=== PATIENT | female | born 1970 | race Caucasian/White ===

== ENCOUNTER 2017-09-30 15:29 | Inpatient (IN) | payer MEDICAID ==
--- NOTE | 2017-09-30 15:45 | C.PDOC ---
History Of Present Illness 47 yr old female brought in via BLS s/p syncopal episode for approximately for 1 minute while at [facility] (was sitting down). Patient states prior to syncopizing, she felt like her left leg was twitching and she also had generalized weakness. She states her said she was unable to speak prior to episode, however she does not remember this. After syncope, patient has headache. Patient denies facial droop, slurred speech, visual changes, fever /chills, chest pain, SOB, nausea, vomiting, gait changes, sensory changes, extremity weakness. Patient has PMHx of pseudotumor cerebri, CHF, HTN, CAD with 2 stents, hyperlipidemia. Time Seen by Provider: 09/30/17 15:38 Chief Complaint (Nursing): Syncope History Per: Patient History/Exam Limitations: no limitations Onset/Duration Of Symptoms: Sudden Onset (SODDER) Past Medical History Reviewed: Historical Data, Nursing Documentation, Vital Signs Vital Signs: Last Vital Signs Temp 98.0 F 10/03/17 15:15 Pulse 69 10/03/17 16:21 Resp 20 10/03/17 15:15 BP 118/75 10/03/17 15:15 Pulse Ox 99 10/03/17 15:15 - Medical History PMH: Asthma, CAD ((+) 2 stents), CHF, HTN, Hypercholesterolemia, Chronic Kidney Disease Surgical History: Coronary Stent (x2) - [facility] Procedures INJECT/INFUSE NEC (07/28/14) Family History: States: No Known Family Hx - Social History Hx Alcohol Use: No Hx Substance Use: No - Immunization History Hx Tetanus Toxoid Vaccination: No Hx Influenza Vaccination: No Hx Pneumococcal Vaccination: Yes (2013) Review Of Systems Except As Marked, All Systems Reviewed And Found Negative. Constitutional: Negative for: Fever, Chills Eyes: Negative for: Vision Change Cardiovascular: Negative for: Chest Pain Respiratory: Negative for: Shortness of Breath Gastrointestinal: Negative for: Nausea, Vomiting Neurological: Positive for: Headache. 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) Head: Atraumatic, Normacephalic Eye(s): bilateral: Normal Inspection, PERRL (no nystagmus ), EOMI Oral Mucosa: Moist Neck: Normal, Normal ROM, No Midline Cervical Tenderness, No Paracervical Tenderness, No Step Off Deformity, Supple Cardiovascular: Rhythm Regular Respiratory: Normal Breath Sounds, No Rales, No Rhonchi, No Wheezing Gastrointestinal/Abdominal: Normal Exam, Bowel Sounds, Soft, No Tenderness, No Guarding, No Rebound Extremity: Normal ROM, No Swelling Neurological/Psych: Oriented x3, Normal Speech, Normal Cognition, Normal Cranial Nerves, No Cerebellar Signs, Normal Motor, Normal Sensation Gait: Steady ED Course And Treatment - Laboratory Results Result Diagrams: 10/03/17 09:18 10/03/17 09:18 ECG: Interpreted By Me, Viewed By Me (NSR 87 bpm, normal axis, no acute ST/T wave changes) ECG Interpretation: Normal O2 Sat by Pulse Oximetry: 98 (RA) Pulse Ox Interpretation: Normal - Radiology CXR: Interpreted by Me, Viewed By Me CXR Interpretation: Yes: No Acute Disease. No: Infiltrates - CT Scan/US CT - Head Other Rad Studies (CT/US): Read By Radiologist, Radiology Report Reviewed CT/US Interpretation: PROCEDURE: CT HEAD WITHOUT CONTRAST. HISTORY: syncope, pseudotumor cerebri. COMPARISON: None available. TECHNIQUE: Axial computed tomography images were obtained through the head/brain without intravenous contrast. Radiation dose: Total exam DLP = 878.41 mGy-cm. This CT exam was performed using one or more of the following dose reduction techniques: Automated exposure control, adjustment of the mA and/or kV according to patient size, and/or use of iterative reconstruction technique. FINDINGS: HEMORRHAGE: No intracranial hemorrhage. BRAIN: No mass effect or edema. No atrophy or chronic microvascular ischemic changes. VENTRICLES: The lateral ventricles are small in size. The possibility of pseudotumor cerebri is not totally excluded. CALVARIUM: Unremarkable. PARANASAL SINUSES: Unremarkable as visualized. No significant inflammatory changes. MASTOID AIR CELLS: Unremarkable as visualized. No inflammatory changes. OTHER FINDINGS: None. IMPRESSION: No evidence of acute intracranial hemorrhage territorial infarct mass effect or midline shift. The lateral ventricles are small in size. The possibility of pseudotumor cerebri is not excluded. Progress Note: PLAN: Blood work, EKG, UA, Upreg, CT head ordered and reviewed. Patient given PO tylenol. - Physician Consult Information Physician Contacted: Shreyas Castellanos Outcome Of Conversation: Discussed patient with Dr. Richelle Castellanos, agrees with admission for syncope, tia vs seizure. Dr. Vora consulted for neurology. NIHSS Stroke Scale - Date/Time Evaluation Performed Date Performed: 09/30/17 Time Performed: 15:34 When Was NIHSS Performed: Baseline - How Severe is the Stoke Level of Consciousness: 0=Alert LOC to Questions: 0=Both comments correct LOC to commands: 0=Obeys both correctly Best Gaze: 0=Normal Visual: 0=No visual loss Facial: 0=Normal Motor Arm - Left: 0=No drift Motor Arm - Right: 0=No drift Motor Leg - Left: 0=No drift Motor Leg - Right: 0=No drift Limb Ataxia: 0=Absent Sensory: 0=Normal Best Language: 0=No aphasia Dysarthia: 0=Normal articulation Extinction & Inattention (Neglect): 0=Normal, no object Score: 0 Severity Of Stroke: 0= No Stroke rTPA Inclusion/Exclusion - Refusal of Treatment Patient Refused Treatment: No - Inclusion Criteria for Altepase Patient is 18 years or Older: Yes The Clinical Diagnosis of Ischemic Stroke That is Causing a Potentially Disabling Neurological Deficit: No Time of Onset is Well Established to be Less Than 270 Minute Before Treatment Would Begin: Yes Risk/Benefit Discussed With Patient/Family Member Present: No Disposition - Disposition Disposition: HOSPITALIZED Disposition Time: 17:33 Condition: STABLE - Clinical Impression Clinical Impression: Syncope, TIA (transient ischemic attack), Seizure - Scribe Statement The provider has reviewed the documentation as recorded by the Kaylenibe [email or web address] Soni Provider Attestation: All medical record entries made by the Kaylenibadrian were at my direction and personally dictated by me. I have reviewed the chart and agree that the record accurately reflects my personal performance of the history, physical exam, medical decision making, and the department course for this patient. I have also personally directed, reviewed, and agree with the discharge instructions and disposition. Decision To Admit - Pt Status Changed To: Hospital Disposition Of: Inpatient - Admit Certification Admit to Inpatient:: After my assessment, the patient will require hospitalization for at least two midnights. This is because of the severity of symptoms shown, intensity of services needed, and/or the medical risk in this patient being treated as an outpatient. - InPatient: Physician Admission Certification: I certify that this patient requires 2 or more midnights of care for the following reason:: see notes - . Bed Request Type: Telemetry Admitting Physician: Shreyas Castellanos Patient Diagnosis: Syncope, TIA (transient ischemic attack), Seizure
[2017-09-30 16:10] LABS: BASO % 0.5 % (0.0-2.0); EOS # 0.1 K/uL (0.0-0.7); EOS % 0.8 % (0.0-4.0); HEMATOCRIT 31.8 % (34.0-47.0); LYMPH # 1.1 K/uL (1.0-4.3); LYMPH % 13.1 % (20.0-40.0); MEAN CELL VOLUME 90.6 fL (81.0-99.0); MEAN CORPUSCULAR HEMOGLOBIN 29.4 pg (27.0-31.0); MEAN CORPUSCULAR HGB CONC 32.4 g/dL (33.0-37.0); MEAN PLATELET VOLUME 10.1 fL (7.2-11.7); MONO # 0.6 K/uL (0.0-0.8); MONO % 7.1 % (0.0-10.0); RED CELL DISTRIBUTION WIDTH 14.4 % (11.5-14.5); WHITE BLOOD COUNT 8.6 K/uL (4.8-10.8)
[2017-09-30 16:12] LABS: BILIRUBIN,TOTAL 1.2 mg/dL (0.2-1.3); CALCIUM 7.3 mg/dl (8.6-10.4); GFR AFRICAN-AMERICAN > 60; GLUCOSE,RANDOM 108 mg/dL (65-105); TOTAL PROTEIN 6.2 g/dL (6.3-8.3)
[2017-09-30 16:15] LABS: ALB/GLOB RATIO 1.7 (1.0-2.1); ALKALINE PHOSPHATASE 51 U/L (38-126); ALT/SGPT 33 U/L (9-52); AST/SGOT 27 U/L (14-36); BLOOD UREA NITROGEN 15 mg/dL (7-17); CARBON DIOXIDE 19 mmol/L (22-30); CHLORIDE 109 mmol/L (98-107); POTASSIUM 3.9 mmol/L (3.6-5.2); SODIUM 140 mmol/L (132-148)
--- NOTE | 2017-09-30 16:22 | CT ---
PROCEDURE: CT HEAD WITHOUT CONTRAST. HISTORY: syncope, pseudotumor cerebri COMPARISON: None available. TECHNIQUE: Axial computed tomography images were obtained through the head/brain without intravenous contrast. Radiation dose: Total exam DLP = 878.41 mGy-cm. This CT exam was performed using one or more of the following dose reduction techniques: Automated exposure control, adjustment of the mA and/or kV according to patient size, and/or use of iterative reconstruction technique. FINDINGS: HEMORRHAGE: No intracranial hemorrhage. BRAIN: No mass effect or edema. No atrophy or chronic microvascular ischemic changes. VENTRICLES: The lateral ventricles are small in size. The possibility of pseudotumor cerebri is not totally excluded. CALVARIUM: Unremarkable. PARANASAL SINUSES: Unremarkable as visualized. No significant inflammatory changes. MASTOID AIR CELLS: Unremarkable as visualized. No inflammatory changes. OTHER FINDINGS: None. IMPRESSION: No evidence of acute intracranial hemorrhage territorial infarct mass effect or midline shift. The lateral ventricles are small in size. The possibility of pseudotumor cerebri is not excluded.
[2017-09-30 17:40] LABS: RBC URINE 1 /hpf (0-3); URINE BACTERIA RARE (<OCC); URINE BILIRUBIN NEGATIVE (NEGATIVE); URINE BLOOD NEGATIVE (NEGATIVE); URINE COLOR Yellow (YELLOW); URINE GLUCOSE (UA) NORMAL (Normal); URINE KETONE NEGATIVE (NEGATIVE); URINE LEUKOCYTE ESTERASE NEG Leu/uL (Negative); URINE PROTEIN NEGATIVE (NEGATIVE); URINE UROBILINOGEN NORMAL mg/dL (0.2-1.0); WBC URINE 5 /hpf (0-5)
[2017-10-01 07:55] LABS: FREE T4 0.87 ng/dL (0.78-2.19)
[2017-10-01 08:09] LABS: THYROID STIMULATING HORMONE 1.51 mIU/L (0.46-4.68)
--- NOTE | 2017-10-01 09:13 | RAD ---
PROCEDURE: CHEST RADIOGRAPH, 1 VIEW HISTORY: syncope COMPARISON: None available. FINDINGS: LUNGS: Clear. PLEURA: No pneumothorax or pleural fluid seen. CARDIOVASCULAR: Mild cardiomegaly is noted there is no pulmonary vascular derangement appreciated. OSSEOUS STRUCTURES: No significant abnormalities. VISUALIZED UPPER ABDOMEN: Normal. OTHER FINDINGS: None. IMPRESSION: No acute cardiopulmonary disease appreciated.
[2017-10-01] MEDS: Metoprolol Succinate 50 mg XL Tab PO SCH (09:22)
--- NOTE | 2017-10-01 12:03 | CP.PCM.CON ---
<Rao Locke - Last Filed: 10/04/17 10:18> History of Present Illness - History of Present Illness History of Present Illness: Cardiology Consult note for Dr. 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 Patient states for the past two days she was feeling tired and weak. On 09/30 patient states she cooked for Thanksgiving all day and finally had the chance to sit and talk with family when suddenly she felt her left leg and arm twitching. She told her she was feeling funny but by time she was able to fully explain what she was feeling she had passed out. At this point patient's brought her to the sofa. Patient states this is not the first time this episode has occurred, hence why her usually knows what to do in these situations. She states that normally however her syncopal episodes are accompanied by a pain in her chest and her arm not so much weakness which was different in this episode. As per patient, according to her , there was no trauma to the head. Patient did complain of neck pain s/p syncopal episode however states this was most likely due to the way her carried her to the couch. Patient also denies any dizziness, or sensation of room spinning around her, nausea, vomiting, palpitations, vision changes prior to episode as well as denies urinary/bowel incontinence. Patient states according to her she experienced loss of consciousness for about one minute. What prompted the to call the ambulance however is that unlike patient's other syncopal episodes, this time patient was unable to verbally communicate right after for about a minute. Patient state she also did not regain strength in her left upper and lower extremities until approximately 20 minutes after syncopizing. Due to history of renal transplants patient monitors Cr. Patient's baseline Cr is 0.7-0.8, creatinine is currently 1.1; patient would like to keep this value monitored. PMD: Dr. Renita Zamarripa [phone], Transplant physician: Dr. Sade Bhatia , Continuous Drier Helper: Dr. Marcella Ernst [phone], Service Cleaner: Dr. Drake Marlow [phone] Surgical History:Hip surgery, b/l glaucoma repair, ureter reconstruction 07/2017 , cholecystectomy, First renal transplant at 13 years old which lasted 6 months , second renal transplant in 1993 which lasted 4.5 years, third renal transplant in 2005 which lasted a few hours, and fourth renal transplant in 2007 which has lasted patient since. Heart Cath 2011- MID LAD and Prox LAD- 2 stents (98% and 99% occluded). Family History: Mother: DM II, Hypertension, CAD s/p stends, Father: [place], CVA, Brother: Stroke, Sister: Atrial fibrillation, TIA Social History: Denies tobacco use, alcohol consumption, illicit drug use Allergies: Vancomycin Medications: please refer to MAR Review of Systems - Review of Systems Systems not reviewed;Unavailable: Acuity of Condition - Constitutional Constitutional: Fatigue, Malaise, Weakness. absent: Chills, Fever, Headache - EENT Eyes: absent: Blurred Vision, Change in Vision, Floaters Ears: Tinnitus (patient states has been present since pseudotumor cerebri) Nose/Mouth/Throat: absent: Epistaxis, Nasal Congestion, Nasal Discharge - Cardiovascular Cardiovascular: Chest Pain, Chest Pain at Rest. absent: Dyspnea, Palpitations - Respiratory Respiratory: absent: Cough, Dyspnea, Wheezing - Gastrointestinal Gastrointestinal: absent: Diarrhea, Nausea, Vomiting - Musculoskeletal Musculoskeletal: absent: Arthralgias, Atrophy, Back Pain - Neurological Neurological: Weakness. absent: Dizziness - Psychiatric Psychiatric: absent: Anhedonia, Confusion, Irritability Past Patient History - Past Medical History & Family History Past Medical History?: Yes - Past Social History Smoking Status: Never Smoked - CARDIAC Hx Congestive Heart Failure: Yes Hx Hypercholesterolemia: Yes Hx Hypertension: Yes - PULMONARY Hx Asthma: Yes - NEUROLOGICAL Hx Neurological Disorder: No - HEENT Hx HEENT Problems: Yes Hx Blind: Yes (partial) Hx Glaucoma: Yes Other/Comment: wears glasses,cerebral pseudo tumor - RENAL Hx Chronic Kidney Disease: Yes - ENDOCRINE/METABOLIC Hx Endocrine Disorders: Yes Other/Comment: parathyroidectomy - HEMATOLOGICAL/ONCOLOGICAL Hx Blood Disorders: No - INTEGUMENTARY Hx Dermatological Problems: No - MUSCULOSKELETAL/RHEUMATOLOGICAL Hx Musculoskeletal Disorders: No Hx Falls: No - GASTROINTESTINAL Hx Gastrointestinal Disorders: No - GENITOURINARY/GYNECOLOGICAL Hx Genitourinary Disorders: Yes Hx Urinary Tract Infection: Yes (chronic) - PSYCHIATRIC Hx Substance Use: No - SURGICAL HISTORY Hx Coronary Stent: Yes (x2) - ANESTHESIA Hx Anesthesia: Yes Hx Anesthesia Reactions: No Hx Malignant Hyperthermia: No Has any member of the family had a problem w/ anesthesia?: No Meds Allergies/Adverse Reactions: Allergies Allergy/AdvReac Type Severity Reaction Status Date / Time vancomycin Allergy Intermediate RASH Verified 09/30/17 15:42 - Medications Medications: Current Medications Acetazolamide (Diamox 250 Mg Tab) 250 mg PO BID [facility] Last Admin: 10/01/17 09:21 Dose: 250 mg Aspirin (Aspirin) 325 mg PO DAILY [facility] Last Admin: 10/01/17 09:21 Dose: 325 mg Famotidine (Pepcid) 20 mg PO DAILY [facility] Last Admin: 10/01/17 09:22 Dose: 20 mg Isosorbide Mononitrate (Imdur Er) 30 mg PO DAILY [facility] Last Admin: 10/01/17 09:22 Dose: 30 mg Lorazepam (Ativan) 0.5 mg IVP ONCE PRN PRN Reason: for sedation prior to MRI Metoprolol Succinate (Toprol Xl) 50 mg PO DAILY [facility] Last Admin: 10/01/17 09:22 Dose: 50 mg Mycophenolate Mofetil (Cellcept) 500 mg PO BID [facility] Last Admin: 10/01/17 09:22 Dose: 500 mg Pneumococcal Polyvalent Vaccine (Pneumovax 23 Vaccine) 0.5 ml IM .ONCE ONE Stop: 10/03/17 10:01 Rosuvastatin Calcium (Crestor) 10 mg PO [facility] Last Admin: 09/30/17 23:56 Dose: 10 mg Tacrolimus (Prograf Cap) 1 mg PO DAILY [facility] Last Admin: 10/01/17 09:21 Dose: 1 mg Tacrolimus (Prograf Cap) 0.5 mg PO [facility] Last Admin: 09/30/17 23:57 Dose: 0.5 mg Tiotropium [place] (Spiriva) 18 mcg INH RQ24 [facility] Physical Exam - Constitutional Appears: No Acute Distress - Head Exam Head Exam: ATRAUMATIC, NORMAL INSPECTION, NORMOCEPHALIC - Eye Exam Eye Exam: EOMI, Normal appearance - ENT Exam ENT Exam: Mucous Membranes Moist, Normal Exam - Respiratory Exam Respiratory Exam: Clear to Auscultation Bilateral, NORMAL BREATHING PATTERN - Cardiovascular Exam Cardiovascular Exam: REGULAR RHYTHM, +S1, +S2. absent: Irregular Rhythm, Systolic Murmur - GI/Abdominal Exam GI & Abdominal Exam: Normal Bowel Sounds, Soft - Back Exam Back exam: NORMAL INSPECTION - Neurological Exam Neurological exam: Alert, CN II-XII Intact, Oriented x3 Additional comments: no focal neurological deficits - Skin Skin Exam: Intact, Warm Results - Vital Signs Recent Vital Signs: Last Vital Signs Temp 98.1 F 10/01/17 09:20 Pulse 73 10/01/17 09:20 Resp 20 10/01/17 09:20 BP 112/66 10/01/17 09:20 Pulse Ox 99 10/01/17 09:20 - Labs Result Diagrams: 10/03/17 09:18 10/04/17 06:10 Labs: Laboratory Results - last 24 hr 09/30/17 09/30/17 09/30/17 15:39 15:49 15:49 WBC 8.6 RBC 3.51 L Hgb 10.3 L Hct 31.8 L MCV 90.6 MCH 29.4 MCHC 32.4 L RDW 14.4 Plt Count 186 MPV 10.1 Neut % (Auto) 78.5 H Lymph % (Auto) 13.1 L [place] % (Auto) 7.1 Eos % (Auto) 0.8 Baso % (Auto) 0.5 Neut # 6.8 Lymph # 1.1 [place] # 0.6 Eos # 0.1 Baso # 0.0 Sodium 140 Potassium 3.9 Chloride 109 H Carbon Dioxide 19 L Anion Gap 16 BUN 15 Creatinine 1.1 Est GFR ( Amer) > 60 Est GFR (Non-Af Amer) 54 POC Glucose (mg/dL) 125 H Random Glucose 108 H Hemoglobin A1c Calcium 7.3 L Total Bilirubin 1.2 AST 27 ALT 33 Alkaline Phosphatase 51 Total Creatine Kinase 44 CK-MB (Mass) 0.42 Troponin I < 0.0120 NT-Pro-B Natriuret Pep Total Protein 6.2 L Albumin 3.8 Globulin 2.3 Albumin/Globulin Ratio 1.7 Triglycerides Cholesterol LDL Cholesterol Direct HDL Cholesterol Vitamin B12 Free T4 TSH 3rd Generation Prolactin Urine Color Urine Clarity Urine pH Ur Specific [place] Urine Protein Urine Glucose (UA) Urine Ketones Urine Blood Urine Nitrate Urine Bilirubin Urine Urobilinogen Ur Leukocyte Esterase Urine WBC (Auto) Urine RBC (Auto) Ur Squamous Epith Cells Urine Bacteria Urine HCG, Qual 09/30/17 10/01/17 10/01/17 17:20 06:25 06:25 WBC RBC Hgb Hct MCV MCH MCHC RDW Plt Count MPV Neut % (Auto) Lymph % (Auto) [place] % (Auto) Eos % (Auto) Baso % (Auto) Neut # Lymph # [place] # Eos # Baso # Sodium Potassium Chloride Carbon Dioxide Anion Gap BUN Creatinine Est GFR ( Amer) Est GFR (Non-Af Amer) POC Glucose (mg/dL) Random Glucose Hemoglobin A1c 5.2 Calcium Total Bilirubin AST ALT Alkaline Phosphatase Total Creatine Kinase CK-MB (Mass) Troponin I NT-Pro-B Natriuret Pep Total Protein Albumin Globulin Albumin/Globulin Ratio Triglycerides Cholesterol LDL Cholesterol Direct HDL Cholesterol Vitamin B12 Free T4 0.87 TSH 3rd Generation 1.51 Prolactin Urine Color Yellow Urine Clarity Hazy Urine pH 6.0 Ur Specific [place] 1.008 Urine Protein Negative Urine Glucose (UA) Normal Urine Ketones Negative Urine Blood Negative Urine Nitrate Negative Urine Bilirubin Negative Urine Urobilinogen Normal Ur Leukocyte Esterase Neg Urine WBC (Auto) 5 Urine RBC (Auto) 1 Ur Squamous Epith Cells 16 H Urine Bacteria Rare Urine HCG, Qual Negative 10/01/17 06:25 WBC RBC Hgb Hct MCV MCH MCHC RDW Plt Count MPV Neut % (Auto) Lymph % (Auto) [place] % (Auto) Eos % (Auto) Baso % (Auto) Neut # Lymph # [place] # Eos # Baso # Sodium Potassium Chloride Carbon Dioxide Anion Gap BUN Creatinine Est GFR ( Amer) Est GFR (Non-Af Amer) POC Glucose (mg/dL) Random Glucose Hemoglobin A1c Calcium Total Bilirubin AST ALT Alkaline Phosphatase Total Creatine Kinase CK-MB (Mass) Troponin I NT-Pro-B Natriuret Pep 174 Total Protein Albumin Globulin Albumin/Globulin Ratio Triglycerides 96 Cholesterol 82 LDL Cholesterol Direct 37 HDL Cholesterol 36 Vitamin B12 324 Free T4 TSH 3rd Generation Prolactin 40.5 H Urine Color Urine Clarity Urine pH Ur Specific [place] Urine Protein Urine Glucose (UA) Urine Ketones Urine Blood Urine Nitrate Urine Bilirubin Urine Urobilinogen Ur Leukocyte Esterase Urine WBC (Auto) Urine RBC (Auto) Ur Squamous Epith Cells Urine Bacteria Urine HCG, Qual Assessment & Plan - Assessment and Plan (Free Text) Assessment: Patient is a 47 year old female with a past medical history of Kidney disease s/ p 4 renal transplants, pseudotumor cerebri, PCP pneumonia, 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 Plan: 1. Syncope r/o cardiac mechanical etiology vs orthostatics hypotension vs neurologic etiology Work up in progress: - Carotid dopplers ordered; results pending - Echo ordered; results pending - Due to history of 2 stents in 2011 (Prox LAD and Mid LAD) s/p Cath in which 98 % and 99% occlusions were found, placed pt on schedule for Cath 10/04; NPO after midnight on 10/03 - BNP ordered; results pending - Lipid panel ordered; results pending - HgA1C score ordered; results pending 2. Asthma - Patient states condition is severe - Continue with meds already on board - Also restarted patient on montelukast and advair which patient takes daily <Bautista Damon - Last Filed: 10/05/17 09:31> Meds - Medications Medications: Current Medications Acetazolamide (Diamox 250 Mg Tab) 250 mg PO BID [facility] Last Admin: 10/04/17 17:50 Dose: 250 mg Aspirin (Ecotrin) 81 mg PO DAILY [facility] Last Admin: 10/04/17 09:57 Dose: 81 mg Clopidogrel Bisulfate (Plavix) 75 mg PO DAILY [facility] Last Admin: 10/04/17 09:57 Dose: 75 mg Famotidine (Pepcid) 20 mg PO DAILY [facility] Last Admin: 10/04/17 09:57 Dose: 20 mg Sodium Chloride (Sodium Chloride 0.9%) 1,000 mls @ 75 mls/hr IV .[id number] [facility] Last Admin: 10/05/17 06:01 Dose: 75 mls/hr Isosorbide Mononitrate (Imdur Er) 30 mg PO DAILY [facility] Last Admin: 10/04/17 10:03 Dose: 30 mg Lorazepam (Ativan) 0.5 mg IVP ONCE PRN PRN Reason: for sedation prior to MRI Metoprolol Succinate (Toprol Xl) 50 mg PO DAILY [facility] Last Admin: 10/04/17 09:57 Dose: 50 mg Montelukast Sodium (Singulair) 10 mg PO HS [facility] Last Admin: 10/04/17 20:59 Dose: 10 mg Mycophenolate Mofetil (Cellcept) 500 mg PO BID [facility] Last Admin: 10/04/17 20:59 Dose: 500 mg Prednisone (Prednisone Tab) 5 mg PO DAILY [facility] Last Admin: 10/04/17 09:58 Dose: 5 mg Rosuvastatin Calcium (Crestor) 10 mg PO HS [facility] Last Admin: 10/04/17 20:59 Dose: 10 mg Tacrolimus (Prograf Cap) 1 mg PO DAILY [facility] Last Admin: 10/04/17 10:15 Dose: 1 mg Tacrolimus (Prograf Cap) 0.5 mg PO HS [facility] Last Admin: 10/04/17 20:59 Dose: 0.5 mg Tiotropium [place] (Spiriva) 18 mcg INH RQ24 [facility] Last Admin: 10/05/17 07:45 Dose: 18 mcg Results - Vital Signs Recent Vital Signs: Last Vital Signs Temp 98.1 F 10/05/17 08:05 Pulse 70 10/05/17 08:06 Resp 20 10/05/17 08:05 BP 133/79 10/05/17 08:05 Pulse Ox 95 10/05/17 08:05 - Labs Result Diagrams: 10/03/17 09:18 10/05/17 07:08 Labs: Laboratory Results - last 24 hr 10/04/17 10/05/17 18:54 07:08 Sodium 142 Potassium 3.7 Chloride 113 H Carbon Dioxide 18 L Anion Gap 14 BUN 15 Creatinine 1.5 H Est GFR ( Amer) 45 Est GFR (Non-Af Amer) 38 Random Glucose 74 Calcium 6.6 L Phosphorus 4.6 H Magnesium 1.2 L Total Bilirubin 0.5 AST 18 ALT 22 Alkaline Phosphatase 69 Total Creatine Kinase 24 L Total Protein 5.4 L Albumin 3.2 L Globulin 2.2 Albumin/Globulin Ratio 1.5 Urine Color Straw Urine Clarity Clear Urine pH 6.0 Ur Specific [place] 1.006 Urine Protein Negative Urine Glucose (UA) Normal Urine Ketones Negative Urine Blood Negative Urine Nitrate Negative Urine Bilirubin Negative Urine Urobilinogen Normal Ur Leukocyte Esterase Neg Urine WBC (Auto) 2 Urine RBC (Auto) 1 Ur Squamous Epith Cells 8 H Ur Transition Epith Cell < 1 Urine Bacteria Rare Assessment & Plan (1) Syncope Status: Acute (2) Acute dyspnea Status: Acute Priority: High (3) Chest pain Status: Acute (4) CAD S/P percutaneous coronary angioplasty Status: Chronic Priority: Medium (5) Essential (primary) hypertension Status: Chronic Priority: High Attending/Attestation - Attestation I have personally seen and examined this patient.: Yes I have fully participated in the care of the patient.: Yes I have reviewed all pertinent clinical information: Yes Notes (Text): 10/05/17 09:30 syncope chest pain - atypical hx of CAD with stenting of proximal and mid LAD will need further ischemic w/u
--- NOTE | 2017-10-01 12:42 | CP.PCM.CON ---
History of Present Illness - History of Present Illness History of Present Illness: CONSULT DICTATED EPISODE OF LEFT SIDE NUMBNESS FOLLOWING LOC SEIZURES Vs TIA WORK UP ON PROGRESS RX PLAVIX Past Patient History - Past Medical History & Family History Past Medical History?: Yes - Past Social History Smoking Status: Never Smoked - CARDIAC Hx Congestive Heart Failure: Yes Hx Hypercholesterolemia: Yes Hx Hypertension: Yes - PULMONARY Hx Asthma: Yes - NEUROLOGICAL Hx Neurological Disorder: No - HEENT Hx HEENT Problems: Yes Hx Blind: Yes (partial) Hx Glaucoma: Yes Other/Comment: wears glasses,cerebral pseudo tumor - RENAL Hx Chronic Kidney Disease: Yes - ENDOCRINE/METABOLIC Hx Endocrine Disorders: Yes Other/Comment: parathyroidectomy - HEMATOLOGICAL/ONCOLOGICAL Hx Blood Disorders: No - INTEGUMENTARY Hx Dermatological Problems: No - MUSCULOSKELETAL/RHEUMATOLOGICAL Hx Musculoskeletal Disorders: No Hx Falls: No - GASTROINTESTINAL Hx Gastrointestinal Disorders: No - GENITOURINARY/GYNECOLOGICAL Hx Genitourinary Disorders: Yes Hx Urinary Tract Infection: Yes (chronic) - PSYCHIATRIC Hx Substance Use: No - SURGICAL HISTORY Hx Coronary Stent: Yes (x2) - ANESTHESIA Hx Anesthesia: Yes Hx Anesthesia Reactions: No Hx Malignant Hyperthermia: No Has any member of the family had a problem w/ anesthesia?: No Meds Allergies/Adverse Reactions: Allergies Allergy/AdvReac Type Severity Reaction Status Date / Time vancomycin Allergy Intermediate RASH Verified 09/30/17 15:42 - Medications Medications: Current Medications Acetazolamide (Diamox 250 Mg Tab) 250 mg PO BID [facility] Last Admin: 10/01/17 09:21 Dose: 250 mg Aspirin (Aspirin) 325 mg PO DAILY [facility] Last Admin: 10/01/17 09:21 Dose: 325 mg Famotidine (Pepcid) 20 mg PO DAILY [facility] Last Admin: 10/01/17 09:22 Dose: 20 mg Isosorbide Mononitrate (Imdur Er) 30 mg PO DAILY [facility] Last Admin: 10/01/17 09:22 Dose: 30 mg Lorazepam (Ativan) 0.5 mg IVP ONCE PRN PRN Reason: for sedation prior to MRI Metoprolol Succinate (Toprol Xl) 50 mg PO DAILY [facility] Last Admin: 10/01/17 09:22 Dose: 50 mg Mycophenolate Mofetil (Cellcept) 500 mg PO BID [facility] Last Admin: 10/01/17 09:22 Dose: 500 mg Pneumococcal Polyvalent Vaccine (Pneumovax 23 Vaccine) 0.5 ml IM .ONCE ONE Stop: 10/03/17 10:01 Rosuvastatin Calcium (Crestor) 10 mg PO HS [facility] Last Admin: 09/30/17 23:56 Dose: 10 mg Tacrolimus (Prograf Cap) 1 mg PO DAILY [facility] Last Admin: 10/01/17 09:21 Dose: 1 mg Tacrolimus (Prograf Cap) 0.5 mg PO HS [facility] Last Admin: 09/30/17 23:57 Dose: 0.5 mg Tiotropium [place] (Spiriva) 18 mcg INH RQ24 [facility] Results - Vital Signs Recent Vital Signs: Last Vital Signs Temp 98.1 F 10/01/17 09:20 Pulse 73 10/01/17 09:20 Resp 20 10/01/17 09:20 BP 112/66 10/01/17 09:20 Pulse Ox 99 10/01/17 09:20 - Labs Result Diagrams: 09/30/17 15:49 09/30/17 15:49 Labs: Laboratory Results - last 24 hr 09/30/17 09/30/17 09/30/17 15:39 15:49 15:49 WBC 8.6 RBC 3.51 L Hgb 10.3 L Hct 31.8 L MCV 90.6 MCH 29.4 MCHC 32.4 L RDW 14.4 Plt Count 186 MPV 10.1 Neut % (Auto) 78.5 H Lymph % (Auto) 13.1 L Gilchrist % (Auto) 7.1 Eos % (Auto) 0.8 Baso % (Auto) 0.5 Neut # 6.8 Lymph # 1.1 Gilchrist # 0.6 Eos # 0.1 Baso # 0.0 Sodium 140 Potassium 3.9 Chloride 109 H Carbon Dioxide 19 L Anion Gap 16 BUN 15 Creatinine 1.1 Est GFR ( Amer) > 60 Est GFR (Non-Af Amer) 54 POC Glucose (mg/dL) 125 H Random Glucose 108 H Hemoglobin A1c Calcium 7.3 L Total Bilirubin 1.2 AST 27 ALT 33 Alkaline Phosphatase 51 Total Creatine Kinase 44 CK-MB (Mass) 0.42 Troponin I < 0.0120 NT-Pro-B Natriuret Pep Total Protein 6.2 L Albumin 3.8 Globulin 2.3 Albumin/Globulin Ratio 1.7 Triglycerides Cholesterol LDL Cholesterol Direct HDL Cholesterol Vitamin B12 Free T4 TSH 3rd Generation Prolactin Urine Color Urine Clarity Urine pH Ur Specific [place] Urine Protein Urine Glucose (UA) Urine Ketones Urine Blood Urine Nitrate Urine Bilirubin Urine Urobilinogen Ur Leukocyte Esterase Urine WBC (Auto) Urine RBC (Auto) Ur Squamous Epith Cells Urine Bacteria Urine HCG, Qual 09/30/17 10/01/17 10/01/17 17:20 06:25 06:25 WBC RBC Hgb Hct MCV MCH MCHC RDW Plt Count MPV Neut % (Auto) Lymph % (Auto) Gilchrist % (Auto) Eos % (Auto) Baso % (Auto) Neut # Lymph # Gilchrist # Eos # Baso # Sodium Potassium Chloride Carbon Dioxide Anion Gap BUN Creatinine Est GFR ( Amer) Est GFR (Non-Af Amer) POC Glucose (mg/dL) Random Glucose Hemoglobin A1c 5.2 Calcium Total Bilirubin AST ALT Alkaline Phosphatase Total Creatine Kinase CK-MB (Mass) Troponin I NT-Pro-B Natriuret Pep Total Protein Albumin Globulin Albumin/Globulin Ratio Triglycerides Cholesterol LDL Cholesterol Direct HDL Cholesterol Vitamin B12 Free T4 0.87 TSH 3rd Generation 1.51 Prolactin Urine Color Yellow Urine Clarity Hazy Urine pH 6.0 Ur Specific [place] 1.008 Urine Protein Negative Urine Glucose (UA) Normal Urine Ketones Negative Urine Blood Negative Urine Nitrate Negative Urine Bilirubin Negative Urine Urobilinogen Normal Ur Leukocyte Esterase Neg Urine WBC (Auto) 5 Urine RBC (Auto) 1 Ur Squamous Epith Cells 16 H Urine Bacteria Rare Urine HCG, Qual Negative 10/01/17 06:25 WBC RBC Hgb Hct MCV MCH MCHC RDW Plt Count MPV Neut % (Auto) Lymph % (Auto) Gilchrist % (Auto) Eos % (Auto) Baso % (Auto) Neut # Lymph # Gilchrist # Eos # Baso # Sodium Potassium Chloride Carbon Dioxide Anion Gap BUN Creatinine Est GFR ( Amer) Est GFR (Non-Af Amer) POC Glucose (mg/dL) Random Glucose Hemoglobin A1c Calcium Total Bilirubin AST ALT Alkaline Phosphatase Total Creatine Kinase CK-MB (Mass) Troponin I NT-Pro-B Natriuret Pep 174 Total Protein Albumin Globulin Albumin/Globulin Ratio Triglycerides 96 Cholesterol 82 LDL Cholesterol Direct 37 HDL Cholesterol 36 Vitamin B12 324 Free T4 TSH 3rd Generation Prolactin 40.5 H Urine Color Urine Clarity Urine pH Ur Specific [place] Urine Protein Urine Glucose (UA) Urine Ketones Urine Blood Urine Nitrate Urine Bilirubin Urine Urobilinogen Ur Leukocyte Esterase Urine WBC (Auto) Urine RBC (Auto) Ur Squamous Epith Cells Urine Bacteria Urine HCG, Qual
--- NOTE | 2017-10-01 13:21 | VASCLAB ---
PROCEDURE: HISTORY: assess stenosis COMPARISON: None available. TECHNIQUE: Grayscale and duplex Doppler evaluation of the cervical carotid and vertebral arteries were performed. The common carotid, carotid bifurcations and cervical Internal Carotid Artery (ICA) and proximal External Carotid Artery (ECA) were evaluated. The vertebral arteries were evaluated for gross patency and flow direction. Report prepared by Fernando Glasgow, BS, RVT FINDINGS: RIGHT CAROTID ARTERIES: 1. Common Carotid Artery: No significant focal plaque formation of the right common carotid artery. Maximum Peak Systolic velocity: 74 cm/sec: End-diastolic velocity 20 cm/sec. 2. Carotid Bifurcation: No significant focal plaque formation. Maximum Peak Systolic velocity: 64 cm/sec: End-diastolic velocity 22 cm/sec. 3. Internal Carotid Artery: Plaque description: Not applicable 3.1. Proximal Segment: Peak systolic velocity 85 cm/sec: End-diastolic velocity 36 cm/sec - % stenosis 0-15% 3.2. Middle Segment: Peak systolic velocity 103 cm/sec: End-diastolic velocity 38 cm/sec - % stenosis 0-15% 3.3. Distal Segment: Peak systolic velocity 80 cm/sec: End-diastolic velocity 36 cm/sec - % stenosis 0-15% 4. External Carotid Artery: No significant focal plaque formation. Peak systolic velocity 72 cm/sec 5. ICA/CCA Ratio: 1.6 LEFT CAROTID ARTERIES: 1. Common Carotid Artery: No significant focal plaque formation of the left common carotid artery. Maximum Peak Systolic velocity: 88 cm/sec: End-diastolic velocity 25 cm/sec. 2. Carotid Bifurcation: No significant focal plaque formation. Maximum Peak Systolic velocity: 70 cm/sec: End-diastolic velocity 22 cm/sec. 3. Internal Carotid Artery: Plaque description: Not applicable 3.1. Proximal Segment: Peak systolic velocity 83 cm/sec: End-diastolic velocity 38 cm/sec - % stenosis 0-15% 3.2. Middle Segment: Peak systolic velocity 99 cm/sec: End-diastolic velocity 39 cm/sec - % stenosis 0-15% 3.3. Distal Segment: Peak systolic velocity 101 cm/sec: End-diastolic velocity 38 cm/sec - % stenosis 0-15% 4. External Carotid Artery: No significant focal plaque formation. Peak systolic velocity 77 cm/sec 5. ICA/CCA Ratio: 1.6 VERTEBRAL ARTERIES: 1. Right Vertebral Artery: The right vertebral artery flow direction is antegrade. 2. Left Vertebral Artery: The left vertebral artery flow direction is antegrade. OTHER FINDINGS: 1. Right Brachial Blood pressure: 110 mmHg. 2. Left Brachial Blood pressure: 108 mmHg. IMPRESSION: RIGHT: Duplex scan does not suggest hemodynamically significant stenosis of the right extracranial carotid arteries. LEFT: Duplex scan does not suggest hemodynamically significant stenosis of the left extracranial carotid arteries.
[2017-10-01] MEDS: Tiotropium 18 mcg Cap For Inhalation INH SCH (14:53)
[2017-10-01] MEDS ORDERED: Gadodiamide 287 MG/ML VIAL (15ML) IV ONE (15:10)
--- NOTE | 2017-10-01 16:45 | MRI ---
PROCEDURE: MRI brain dated 10/01/2017 HISTORY: Stroke versus mass COMPARISON: None. TECHNIQUE: Multiplanar, multisequence MR images of the brain were obtained with and without intravenous contrast enhancement. Approximately 11 cc of Omniscan injected for this procedure FINDINGS: HEMORRHAGE: No acute parenchymal, subarachnoid or extra-axial hemorrhage. No evidence of hemosiderin deposition identified on gradient echo weighted sequence. DWI: No evidence of an acute or early subacute infarction seen on diffusion imaging. . BRAIN PARENCHYMA: There are no focal areas of abnormal signal or contrast enhancement seen within the substance of the brain. No enhancing parenchymal nor extra-axial masses or collections. No evidence of unusual meningeal enhancement. ENHANCEMENT: No abnormal intracranial enhancement as above. VENTRICLES: The ventricles remain diminutive in size; possibility of idiopathic intracranial hypertension (pseudotumor cerebri) not excluded. CRANIUM: Re- demonstrated is marked thickening of the calvarium particularly the clivus with multiple varying sized rounded sclerotic lesions scattered throughout the inner table of uncertain etiology. Rule out sequela of renal osteodystrophy, hyperparathyroidism ala or possible Paget disease. . None these sclerotic exhibit increased T2 signal or contrast enhancement to suggest metastatic disease however bone scan followup may be prudent. Clinical correlation with history as well as laboratory values/metabolic panel also recommended . ORBITS: Orbits and contents are not well delineated due to motion artifact though appear otherwise grossly unremarkable on. PARANASAL SINUSES/MASTOIDS: Visualized paranasal and mastoid air complexes are clear VASCULAR SYSTEM: Visualized major vascular flow voids at skull base appear patent. No evidence to suggest venous sinus thrombosis. OTHER FINDINGS: None . IMPRESSION: Limited motion degraded study. No evidence of acute intracranial hemorrhage or infarct. There are no enhancing parenchymal nor extra-axial masses or collections. No evidence of unusual meningeal enhancement. No evidence to suggest venous sinus thrombosis. The ventricles are diminutive though not slit-like however the possibility of idiopathic intracranial hypertension (pseudotumor cerebri) not excluded. Marked diffuse thickening of the calvarium including the skullbase and in particular the clivus ; these findings are of uncertain etiology however rule out sequela of renal osteodystrophy, hyperparathyroidism or possibly Paget's disease. None these sclerotic exhibit increased T2 signal or contrast enhancement to suggest metastatic disease however bone scan followup may be prudent. .Clinical correlation with history as well as laboratory values/metabolic panel also recommended
--- NOTE | 2017-10-01 18:01 | CP.PCM.HP ---
History of Present Illness - History of Present Illness History of Present Illness: 47-year-old female with PMHIHD [PCI done], asthma, CHF, HTN, hypercholesterolemia and CKD presents to the ER for evaluation of Syncopal Attack. C/OPatient Was Sitting during the Thanksgiving had a syncopal. She felt that the legs were twitching and she also had generalized weakness. Her states that she was unable to speak before the episode but she could not remember it. No C/O - weakness of any extremities, slurring of speech, tinnitus, headache, vomiting, fever, tingling or numbness sensation. Present on Admission - Present on Admission Any Indicators Present on Admission: No Past Patient History - Past Medical History & Family History Past Medical History?: Yes - Past Social History Smoking Status: Never Smoked - CARDIAC Hx Congestive Heart Failure: Yes Hx Hypercholesterolemia: Yes Hx Hypertension: Yes - PULMONARY Hx Asthma: Yes - NEUROLOGICAL Hx Neurological Disorder: No - HEENT Hx HEENT Problems: Yes Hx Blind: Yes (partial) Hx Glaucoma: Yes Other/Comment: wears glasses,cerebral pseudo tumor - RENAL Hx Chronic Kidney Disease: Yes - ENDOCRINE/METABOLIC Hx Endocrine Disorders: Yes Other/Comment: parathyroidectomy - HEMATOLOGICAL/ONCOLOGICAL Hx Blood Disorders: No - INTEGUMENTARY Hx Dermatological Problems: No - MUSCULOSKELETAL/RHEUMATOLOGICAL Hx Musculoskeletal Disorders: No Hx Falls: No - GASTROINTESTINAL Hx Gastrointestinal Disorders: No - GENITOURINARY/GYNECOLOGICAL Hx Genitourinary Disorders: Yes Hx Urinary Tract Infection: Yes (chronic) - PSYCHIATRIC Hx Substance Use: No - SURGICAL HISTORY Hx Coronary Stent: Yes (x2) - ANESTHESIA Hx Anesthesia: Yes Hx Anesthesia Reactions: No Hx Malignant Hyperthermia: No Has any member of the family had a problem w/ anesthesia?: No Meds Home Medications: Home Medication List Medication Instructions Recorded Confirmed Type Clopidogrel [Plavix] 75 mg PO DAILY #30 tab 10/05/17 Rx Allergies/Adverse Reactions: Allergies Allergy/AdvReac Type Severity Reaction Status Date / Time vancomycin Allergy Intermediate RASH Verified 09/30/17 15:42 Physical Exam - Constitutional Appears: Well - Head Exam Head Exam: ATRAUMATIC, NORMAL INSPECTION, NORMOCEPHALIC - Eye Exam Eye Exam: EOMI, Normal appearance, PERRL Pupil Exam: NORMAL ACCOMODATION, PERRL - ENT Exam ENT Exam: Mucous Membranes Moist, Normal Exam - Neck Exam Neck exam: Positive for: Normal Inspection - Respiratory Exam Respiratory Exam: Decreased Breath Sounds - Cardiovascular Exam Cardiovascular Exam: REGULAR RHYTHM, +S1, +S2 - GI/Abdominal Exam GI & Abdominal Exam: Diminished Bowel Sounds, Soft - Rectal Exam Rectal Exam: Deferred Results - Vital Signs Recent Vital Signs: Last Vital Signs Temp 98.1 F 10/01/17 09:20 Pulse 73 10/01/17 09:20 Resp 20 10/01/17 09:20 BP 112/66 10/01/17 09:20 Pulse Ox 99 10/01/17 09:20 - Labs Result Diagrams: 10/03/17 09:18 10/05/17 07:08 Labs: Laboratory Results - last 24 hr 10/01/17 10/01/17 10/01/17 06:25 06:25 06:25 Hemoglobin A1c 5.2 NT-Pro-B Natriuret Pep 174 Triglycerides 96 Cholesterol 82 LDL Cholesterol Direct 37 HDL Cholesterol 36 Vitamin B12 324 Free T4 0.87 TSH 3rd Generation 1.51 Prolactin 40.5 H
[2017-10-01] MEDS ORDERED: Fluticasone-Salmeterol 250-50mcg Diskus INH SCH (20:00)
--- NOTE | 2017-10-01 21:29 | CON ---
DATE: ATTENDING PHYSICIAN: Nata Castellanos MD. LOCATION: Room 668, bed B. REASON FOR THE CONSULTATION: Syncopal attack. CHIEF COMPLAINT: Patient was brought into [facility] ([facility]] with an episode of syncopal attack preceding left-sided numbness. From neurological point of view, I was called in to evaluate her for further management. HISTORY OF PRESENT ILLNESS: Ms. Lisa Staley is a 47-year-old right-handed female, usual state of health, while she was sitting in the Thanksgiving dinner table, suddenly she started to have numbness of her left arm and leg. She was complaining the symptoms to her . At the time of describing the problem, she was passed out. The loss of consciousness was for about 20 seconds. Then, she woke up with speech impairment, she could not able to talk out louder, not making any words out. Immediately 911 was called. The whole symptom lasted for about 3 minutes and got back to her usual mental status. No bowel or bladder incontinence noted at the scene. No involuntary movements being documented or witnessed. No similar episodes happened in the past. However, she did have one episode of loss of consciousness associating with the chest pain in the past, never had focal neurological deficits. 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 Status post coronary artery stent placement in 2001. History of pseudotumor cerebri and partial vision loss. PERSONAL HISTORY: Denies smoking or alcohol use. ALLERGIES: VANCOMYCIN. REVIEW OF SYSTEMS: A 12-point system has been reviewed. From neuro, left-sided numbness and loss of consciousness. MEDICATIONS: Aspirin, Ativan, CellCept, Crestor, Diamox, Imdur, Pepcid, Prograf, Singulair, Toprol. PHYSICAL EXAMINATION: VITAL SIGNS: Blood pressure 112/66, mean arterial pressure of 81, respiratory rate 16, temperature afebrile. NECK: Supple. No carotid bruit. HEART: Sounds are regular. CHEST: Fair air entry. EXTREMITIES: No edema in legs. NEUROLOGIC: Mental status: She is awake, alert, and oriented to person, place and time. Speech is clear. Naming, repetition, fluency, and comprehension all within normal limits. Cranial nerves: Visual field test showing left lower quadrant anopsia. Left palpebral fissure is smaller to compare with the right side. Pupils react to light. Extraocular movements normal. No nystagmus. No facial sensory deficit. No facial asymmetry. Motor: Outstretched hand with eyes closed, no drift noted. Power is symmetric on either sides. Deep tendon reflexes: Biceps, brachialis, triceps absent. In both knees, are absent. In both ankles, are absent. Plantars are downgoing. Sensory: Grossly intact. No cortical sensory loss. Coordination: [id number] test is intact. Gait: Deferred at this time. DIAGNOSTIC DATA: CT of the head is reviewed by me, no acute pathology is noted. EKG, normal sinus rhythm. LABORATORY DATA: White count 8.6, hemoglobin 10.3, hematocrit 31.8, platelet 186. Sodium 140, potassium 3.9, chloride 109, bicarbonate 19, glucose 125. Hemoglobin A1c 5.2. AST 27, ALT 23, total protein 6.2, triglyceride 96, cholesterol 82, LDL 37, HDL 36, TSH 1.51, prolactin level 50.5. CONCLUSION: Ms. Lisa Staley has been presenting with possible focal seizure, generalized manifesting with loss of consciousness. However, the other possible cause considering her risk factors, right subcortical dysfunction should be ruled out. RECOMMENDATION: 1. MRA of the brain/carotid Doppler/EEG/echocardiogram all requested. 2. Patient failed with aspirin, patient should be placed on aspirin as well as a Plavix for at least 6 months , If stable, plavix can be switched back to aspirin. 3. Patient should be followed with her epic anesthesia analyst and the medication should be continued as recommended. 4. Considering her risk factors, patient should have polysomnogram to rule in or rule out sleep-related breathing disorder. Patient's condition has been discussed with her as well as her . The patient will be followed closely while she is in the hospital. Donte Vora MD MTDD
[2017-10-02 01:29] VITALS: RESP 20
[2017-10-02] MEDS: Tiotropium 18 mcg Cap For Inhalation INH SCH (09:06)
[2017-10-02] MEDS ORDERED: Influenza Vaccine 60 mcg/0.5 mL SYR (4YR UP) IM ONE (10:00)
[2017-10-02] MEDS: Metoprolol Succinate 50 mg XL Tab PO SCH (10:37)
[2017-10-02 11:30] LABS: BASO % 0.5 % (0.0-2.0); EOS # 0.1 K/uL (0.0-0.7); EOS % 1.5 % (0.0-4.0); HEMATOCRIT 30.1 % (34.0-47.0); LYMPH # 1.1 K/uL (1.0-4.3); LYMPH % 16.2 % (20.0-40.0); MEAN CELL VOLUME 90.1 fL (81.0-99.0); MEAN CORPUSCULAR HEMOGLOBIN 29.3 pg (27.0-31.0); MEAN CORPUSCULAR HGB CONC 32.5 g/dL (33.0-37.0); MEAN PLATELET VOLUME 10.1 fL (7.2-11.7); MONO # 0.7 K/uL (0.0-0.8); MONO % 10.3 % (0.0-10.0); RED CELL DISTRIBUTION WIDTH 14.3 % (11.5-14.5); WHITE BLOOD COUNT 6.6 K/uL (4.8-10.8)
[2017-10-02 11:55] LABS: ALB/GLOB RATIO 1.6 (1.0-2.1); BILIRUBIN,TOTAL 0.8 mg/dL (0.2-1.3); CALCIUM 7.3 mg/dl (8.6-10.4); TOTAL PROTEIN 5.7 g/dL (6.3-8.3)
--- NOTE | 2017-10-02 14:39 | CP.PCM.PN ---
Subjective - Date & Time of Evaluation Date of Evaluation: 10/02/17 Time of Evaluation: 11:20 - Subjective Subjective: clinically same Objective - Vital Signs/Intake and Output Vital Signs (last 24 hours): Temp Pulse Resp BP Pulse Ox 98.5 F 88 20 117/74 98 10/02/17 07:00 10/02/17 12:24 10/02/17 07:00 10/02/17 07:00 10/02/17 07:00 Intake and Output: 10/02/17 10/02/17 06:59 18:59 Intake Total 480 Balance 480 - Medications Medications: Current Medications Acetazolamide (Diamox 250 Mg Tab) 250 mg PO BID [facility] Last Admin: 10/02/17 10:37 Dose: 250 mg Aspirin (Ecotrin) 81 mg PO DAILY [facility] Last Admin: 10/02/17 12:11 Dose: 81 mg Clopidogrel Bisulfate (Plavix) 75 mg PO DAILY [facility] Last Admin: 10/02/17 10:37 Dose: 75 mg Famotidine (Pepcid) 20 mg PO DAILY [facility] Last Admin: 10/02/17 10:37 Dose: 20 mg Isosorbide Mononitrate (Imdur Er) 30 mg PO DAILY [facility] Last Admin: 10/02/17 10:39 Dose: 30 mg Lorazepam (Ativan) 0.5 mg IVP ONCE PRN PRN Reason: for sedation prior to MRI Metoprolol Succinate (Toprol Xl) 50 mg PO DAILY [facility] Last Admin: 10/02/17 10:37 Dose: 50 mg Montelukast Sodium (Singulair) 10 mg PO HS [facility] Last Admin: 10/01/17 21:44 Dose: 10 mg Mycophenolate Mofetil (Cellcept) 500 mg PO BID [facility] Last Admin: 10/02/17 10:37 Dose: 500 mg Pneumococcal Polyvalent Vaccine (Pneumovax 23 Vaccine) 0.5 ml IM .ONCE ONE Stop: 10/03/17 10:01 Prednisone (Prednisone Tab) 5 mg PO DAILY [facility] Last Admin: 10/02/17 12:11 Dose: 5 mg Rosuvastatin Calcium (Crestor) 10 mg PO HS [facility] Last Admin: 10/01/17 21:44 Dose: 10 mg Tacrolimus (Prograf Cap) 1 mg PO DAILY [facility] Last Admin: 10/02/17 10:37 Dose: 1 mg Tacrolimus (Prograf Cap) 0.5 mg PO HS [facility] Last Admin: 10/01/17 21:44 Dose: 0.5 mg Tiotropium [place] (Spiriva) 18 mcg INH RQ24 [facility] Last Admin: 10/02/17 09:06 Dose: 18 mcg - Labs Labs: 10/02/17 11:07 10/02/17 11:07 - Constitutional Appears: Well - Head Exam Head Exam: ATRAUMATIC, NORMAL INSPECTION, NORMOCEPHALIC - Eye Exam Eye Exam: EOMI, Normal appearance, PERRL Pupil Exam: NORMAL ACCOMODATION, PERRL - ENT Exam ENT Exam: Mucous Membranes Moist, Normal Exam - Neck Exam Neck Exam: Full ROM, Normal Inspection. absent: Lymphadenopathy - Respiratory Exam Respiratory Exam: Decreased Breath Sounds - Cardiovascular Exam Cardiovascular Exam: REGULAR RHYTHM, +S1, +S2 - GI/Abdominal Exam GI & Abdominal Exam: Soft, Diminished Bowel Sounds - Rectal Exam Rectal Exam: Deferred Assessment and Plan - Assessment and Plan (Free Text) Plan: Patient examined. EKG normal. Carotid duplex study does not show significant stenosis of carotid arteries. CT brain not suggestive of any acute intracranial events. Chest x-ray was normal. Echocardiogram is normal, EF of 55%. Continue aspirin and clopidogrel. Continue antihypertensive medications. Continue tacrolimus. Continue bronchodilators. Continue supportive care.
--- NOTE | 2017-10-02 16:11 | CARD ---
APPROVED REPORT EXAM: Two-dimensional and M-mode echocardiogram with Doppler and color Doppler. Other Information Quality : GoodRhythm : INDICATION CVA/TIA Dyspnea Cardiac Disease: CAD Chest Pain RISK FACTORS Hypertension 2D DIMENSIONS IVSd0.7 (0.7-1.1cm)LVDd4.6 (3.9-5.9cm) PWd0.8 (0.7-1.1cm)LVDs3.3 (2.5-4.0cm) FS (%) 28.4 %LVEF (%)55.0 (>50%) M-Mode DIMENSIONS Left Atrium (MM)3.24 (2.5-4.0cm)Aortic Root2.93 (2.2-3.7cm) Aortic Cusp Exc.1.92 (1.5-2.0cm) Mitral Valve MV E Wavedhzi82.9cm/sMV A Gjtgmszy795.4cm/sE/A ratio0.7 TDI E/Lateral E'0.0E/Medial E'0.0 Tricuspid Valve TR Peak [id number]/sTR Peak Gr.[id number] LEFT VENTRICLE The left ventricle is normal size. There is normal left ventricular wall thickness. The left ventricular function is normal. The left ventricular ejection fraction is within the normal range. There is normal LV segmental wall motion. Transmitral Doppler flow pattern is Grade I-abnormal relaxation pattern. No left ventricle thrombus noted on this study. There is no ventricular septal defect visualized. There is no left ventricular aneurysm. There is no mass noted in the left ventricle. RIGHT VENTRICLE The right ventricle is normal size. There is normal right ventricular wall thickness. The right ventricular systolic function is normal. ATRIA The left atrium size is normal. The right atrium size is normal. The interatrial septum is intact with no evidence for an atrial septal defect. AORTIC VALVE The aortic valve is normal in structure. There is trace to mild aortic regurgitation. There is no aortic valvular stenosis. There is no aortic valvular vegetation. MITRAL VALVE The mitral valve is normal in structure. There is no mitral valve stenosis. There is no mitral valve regurgitation noted. TRICUSPID VALVE The tricuspid valve is normal in structure. There is no tricuspid valve regurgitation noted. PULMONIC VALVE The pulmonary valve is normal in structure. There is no pulmonic valvular regurgitation. GREAT VESSELS The aortic root is normal in size. The ascending aorta is normal in size. The pulmonary artery is normal. The IVC is normal in size and collapses >50% with inspiration. PERICARDIAL EFFUSION There is no pericardial effusion. <Conclusion> Transmitral Doppler flow pattern is Grade I-abnormal relaxation pattern. OTHERWISE NORMAL STUDY. LVEF IS 55%.
--- NOTE | 2017-10-02 16:57 | CARD ---
APPROVED REPORT EKG Measurement Heart [id number] <Conclusion> Normal sinus rhythm Low voltage QRS Borderline ECG
[2017-10-03 09:24] LABS: BASO % 0.4 % (0.0-2.0); EOS # 0.1 K/uL (0.0-0.7); EOS % 1.5 % (0.0-4.0); HEMATOCRIT 30.1 % (34.0-47.0); LYMPH # 1.4 K/uL (1.0-4.3); LYMPH % 17.1 % (20.0-40.0); MEAN CELL VOLUME 89.1 fL (81.0-99.0); MEAN CORPUSCULAR HEMOGLOBIN 29.7 pg (27.0-31.0); MEAN CORPUSCULAR HGB CONC 33.4 g/dL (33.0-37.0); MEAN PLATELET VOLUME 9.8 fL (7.2-11.7); MONO # 0.6 K/uL (0.0-0.8); NRBC % 0.1 % (0.0-2.0); RED CELL DISTRIBUTION WIDTH 14.1 % (11.5-14.5)
[2017-10-03 09:42] LABS: ALB/GLOB RATIO 1.5 (1.0-2.1); BILIRUBIN,TOTAL 0.9 mg/dL (0.2-1.3); CALCIUM 7.6 mg/dl (8.6-10.4)
[2017-10-03] MEDS ORDERED: Pneumococcal 23-Valent Vaccine IM ONE (10:00)
[2017-10-03] MEDS: Metoprolol Succinate 50 mg XL Tab PO SCH (10:18)
[2017-10-03] MEDS: Tiotropium 18 mcg Cap For Inhalation INH SCH (11:39)
--- NOTE | 2017-10-03 12:41 | PN ---
DATE: 10/03/2017 TIME OF EVALUATION: 11:50 a.m. NEUROLOGICAL PROBLEM: Possible focal seizure versus left subcortical dysfunction. PHYSICAL EXAMINATION: VITAL SIGNS: Blood pressure 122/78, mean arterial pressure of 92, respiratory rate 16, temperature afebrile. NECK: Supple. No carotid bruit. HEART: Sounds are regular. NEUROLOGIC: The patient is awake. Denies any new complaints. She slept good; however, she admitted some tremor because of increasing taking coffee. On examination, the patient showed some tremor on both upper extremities. No focal weakness noted. Deep tendon reflexes are absent. Plantars are downgoing. WORKUP: MRI of the brain, which was done, has been reviewed by me. It does not show any focal signal of ischemic process or space occupying lesion. Some periventricular ischemic changes are noted. No evidence of venous sinus thrombosis. There is skull base thickening noted as per the report. Currently, Doppler does not show any significant stenosis. RECOMMENDATION: Electroencephalogram is still pending that to be done. From neurological point of view, the patient is stable with current medication of dual antiplatelets. The patient is also scheduled to have cardiac catheterization tomorrow. The patient will be followed up closely while she is in the hospital. Donte Vora MD
--- NOTE | 2017-10-03 16:21 | CP.PCM.CON ---
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 last transplant 2007 with recent serum creatinine .9 admitted for syncope Hx cad post ptca stent,pseudotumor cerebri on diamox recent ureteral reimplantation for reflux schedule for cardiac cath 10/[address] Damon needs further evaluation kidney status as well as tacrolimus level will postpone cath to give trial iv fluids Past Patient History - Past Medical History & Family History Past Medical History?: Yes - Past Social History Smoking Status: Never Smoked - CARDIAC Hx Congestive Heart Failure: Yes Hx Hypercholesterolemia: Yes Hx Hypertension: Yes - PULMONARY Hx Asthma: Yes - NEUROLOGICAL Hx Neurological Disorder: No - HEENT Hx HEENT Problems: Yes Hx Blind: Yes (partial) Hx Glaucoma: Yes Other/Comment: wears glasses,cerebral pseudo tumor - RENAL Hx Chronic Kidney Disease: Yes - ENDOCRINE/METABOLIC Hx Endocrine Disorders: Yes Other/Comment: parathyroidectomy - HEMATOLOGICAL/ONCOLOGICAL Hx Blood Disorders: No - INTEGUMENTARY Hx Dermatological Problems: No - MUSCULOSKELETAL/RHEUMATOLOGICAL Hx Musculoskeletal Disorders: No Hx Falls: No - GASTROINTESTINAL Hx Gastrointestinal Disorders: No - GENITOURINARY/GYNECOLOGICAL Hx Genitourinary Disorders: Yes Hx Urinary Tract Infection: Yes (chronic) - PSYCHIATRIC Hx Substance Use: No - SURGICAL HISTORY Hx Coronary Stent: Yes (x2) - ANESTHESIA Hx Anesthesia: Yes Hx Anesthesia Reactions: No Hx Malignant Hyperthermia: No Has any member of the family had a problem w/ anesthesia?: No Meds Allergies/Adverse Reactions: Allergies Allergy/AdvReac Type Severity Reaction Status Date / Time vancomycin Allergy Intermediate RASH Verified 09/30/17 15:42 - Medications Medications: Current Medications Acetazolamide (Diamox 250 Mg Tab) 250 mg PO BID ON [facility] OF [facility] Last Admin: 10/03/17 10:18 Dose: 250 mg Aspirin (Ecotrin) 81 mg PO DAILY [facility] Last Admin: 10/03/17 10:19 Dose: 81 mg Clopidogrel Bisulfate (Plavix) 75 mg PO DAILY [facility] Last Admin: 10/03/17 10:18 Dose: 75 mg Famotidine (Pepcid) 20 mg PO DAILY [facility] Last Admin: 10/03/17 10:18 Dose: 20 mg Isosorbide Mononitrate (Imdur Er) 30 mg PO DAILY [facility] Last Admin: 10/03/17 10:19 Dose: 30 mg Lorazepam (Ativan) 0.5 mg IVP ONCE PRN PRN Reason: for sedation prior to MRI Metoprolol Succinate (Toprol Xl) 50 mg PO DAILY [facility] Last Admin: 10/03/17 10:18 Dose: 50 mg Montelukast Sodium (Singulair) 10 mg PO HS [facility] Last Admin: 10/02/17 21:26 Dose: 10 mg Mycophenolate Mofetil (Cellcept) 500 mg PO BID [facility] Last Admin: 10/03/17 10:18 Dose: 500 mg Prednisone (Prednisone Tab) 5 mg PO DAILY [facility] Last Admin: 10/03/17 10:18 Dose: 5 mg Rosuvastatin Calcium (Crestor) 10 mg PO HS [facility] Last Admin: 10/02/17 21:27 Dose: 10 mg Tacrolimus (Prograf Cap) 1 mg PO DAILY [facility] Last Admin: 10/03/17 10:18 Dose: 1 mg Tacrolimus (Prograf Cap) 0.5 mg PO HS [facility] Last Admin: 10/02/17 21:27 Dose: 0.5 mg Tiotropium [place] (Spiriva) 18 mcg INH RQ24 ON [facility] Last Admin: 10/03/17 11:39 Dose: Not Given Results - Vital Signs Recent Vital Signs: Last Vital Signs Temp 98.0 F 10/03/17 15:15 Pulse 72 10/03/17 15:15 Resp 20 10/03/17 15:15 BP 118/75 10/03/17 15:15 Pulse Ox 99 10/03/17 15:15 - Labs Result Diagrams: 10/03/17 09:18 10/03/17 09:18 Labs: Laboratory Results - last 24 hr 10/03/17 10/03/17 09:18 09:18 WBC 8.0 RBC 3.38 L Hgb 10.1 L Hct 30.1 L MCV 89.1 MCH 29.7 MCHC 33.4 RDW 14.1 Plt Count 170 MPV 9.8 Neut % (Auto) 73.0 Lymph % (Auto) 17.1 L [place] % (Auto) 8.0 Eos % (Auto) 1.5 Baso % (Auto) 0.4 Neut # 5.9 Lymph # 1.4 [place] # 0.6 Eos # 0.1 Baso # 0.0 Sodium 139 Potassium 4.0 Chloride 109 H Carbon Dioxide 21 L Anion Gap 13 BUN 13 Creatinine 1.4 H Est GFR ( Amer) 49 Est GFR (Non-Af Amer) 41 Random Glucose 69 Calcium 7.6 L Total Bilirubin 0.9 AST 21 ALT 26 Alkaline Phosphatase 74 Total Protein 6.0 L Albumin 3.6 Globulin 2.4 Albumin/Globulin Ratio 1.5
--- NOTE | 2017-10-03 17:01 | CP.PCM.PN ---
Subjective - Date & Time of Evaluation Date of Evaluation: 10/03/17 Time of Evaluation: 11:40 - Subjective Subjective: cliically same Objective - Vital Signs/Intake and Output Vital Signs (last 24 hours): Temp Pulse Resp BP Pulse Ox 98.0 F 69 20 118/75 99 10/03/17 15:15 10/03/17 16:21 10/03/17 15:15 10/03/17 15:15 10/03/17 15:15 Intake and Output: 10/03/17 10/03/17 06:59 18:59 Intake Total 630 240 Balance 630 240 - Medications Medications: Current Medications Acetazolamide (Diamox 250 Mg Tab) 250 mg PO BID [facility] Last Admin: 10/03/17 10:18 Dose: 250 mg Aspirin (Ecotrin) 81 mg PO DAILY [facility] Last Admin: 10/03/17 10:19 Dose: 81 mg Clopidogrel Bisulfate (Plavix) 75 mg PO DAILY [facility] Last Admin: 10/03/17 10:18 Dose: 75 mg Famotidine (Pepcid) 20 mg PO DAILY [facility] Last Admin: 10/03/17 10:18 Dose: 20 mg Sodium Chloride (Sodium Chloride 0.9%) 1,000 mls @ 75 mls/hr IV .[id number] [facility] Isosorbide Mononitrate (Imdur Er) 30 mg PO DAILY [facility] Last Admin: 10/03/17 10:19 Dose: 30 mg Lorazepam (Ativan) 0.5 mg IVP ONCE PRN PRN Reason: for sedation prior to MRI Metoprolol Succinate (Toprol Xl) 50 mg PO DAILY [facility] Last Admin: 10/03/17 10:18 Dose: 50 mg Montelukast Sodium (Singulair) 10 mg PO HS [facility] Last Admin: 10/02/17 21:26 Dose: 10 mg Mycophenolate Mofetil (Cellcept) 500 mg PO BID [facility] Last Admin: 10/03/17 10:18 Dose: 500 mg Prednisone (Prednisone Tab) 5 mg PO DAILY [facility] Last Admin: 10/03/17 10:18 Dose: 5 mg Rosuvastatin Calcium (Crestor) 10 mg PO HS [facility] Last Admin: 10/02/17 21:27 Dose: 10 mg Tacrolimus (Prograf Cap) 1 mg PO DAILY [facility] Last Admin: 10/03/17 10:18 Dose: 1 mg Tacrolimus (Prograf Cap) 0.5 mg PO HS [facility] Last Admin: 10/02/17 21:27 Dose: 0.5 mg Tiotropium [place] (Spiriva) 18 mcg INH RQ24 [facility] Last Admin: 10/03/17 11:39 Dose: Not Given - Labs Labs: 10/03/17 09:18 10/03/17 09:18 - Constitutional Appears: Well - Head Exam Head Exam: ATRAUMATIC, NORMAL INSPECTION, NORMOCEPHALIC - Eye Exam Eye Exam: EOMI, Normal appearance, PERRL Pupil Exam: NORMAL ACCOMODATION, PERRL - ENT Exam ENT Exam: Mucous Membranes Moist, Normal Exam - Neck Exam Neck Exam: Full ROM, Normal Inspection. absent: Lymphadenopathy - Respiratory Exam Respiratory Exam: Clear to Ausculation Bilateral, NORMAL BREATHING PATTERN - Cardiovascular Exam Cardiovascular Exam: REGULAR RHYTHM, +S1, +S2. absent: Murmur - GI/Abdominal Exam GI & Abdominal Exam: Soft, Normal Bowel Sounds. absent: Tenderness - Rectal Exam Rectal Exam: Deferred - Back Exam Back Exam: NORMAL INSPECTION - Neurological Exam Neurological Exam: Alert, Awake, CN II-XII Intact, Normal Gait, Oriented x3 Assessment and Plan - Assessment and Plan (Free Text) Plan: Patient examined. Patient better. Continue aspirin and clopidogrel. Continue antihypertensive medications. Continue tacrolimus. Continue bronchodilators. Continue supportive care.
[2017-10-03] MEDS: Sodium Chloride 0.9% 1,000 ML IV SCH (17:39)
--- NOTE | 2017-10-04 01:05 | CON ---
ATTENDING PHYSICIAN: Nata Castellanos MD HISTORY OF PRESENT ILLNESS: Ms. Staley is 47-year-old female who was being seen for management of a kidney transplant. Ms. 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 She has had 4 kidney transplants, the last one was in 2007 with her serum creatinine of approximately 0.9, she says. These transplants were done at [facility] in [place]. She was admitted to [place] on the after having a syncopal attack at home. She apparently was feeling weak for 1 or 2 days prior to her admission and then on the day of admission, she had some funny feelings on her left arm without chest pain or palpitation, and subsequently passed out. Her was in the house and apparently caught her before she fell and placed her on the sofa. She has no recollection of any of these events. There is no mention of twitching or shaking. On the , her white count was 8600, hemoglobin 10.3, hematocrit 31.8. Sodium 140, potassium 3.9, chloride 109, CO2 of 19, BUN 15, creatinine 1.1, glucose 125. Hemoglobin A1c of 5.2, calcium 7.3, total bili 1.2. AST of 27, ALT of 33, alk phos of 51 and CPK of . Troponin I less than 0.12, total protein 6.2, albumin 3.8. Urine was negative for protein, negative for blood. On the , her hemoglobin was 9.8, her BUN was 13 with a creatinine of 1.2. Her calcium was 7.3. Today, her sodium is 139, potassium 4, chloride 109, CO2 of 21, creatinine 1.4, calcium 7.6, albumin 3.6. Head CT showed no intracranial hemorrhage, mass effect or edema. PAST HISTORY: Ureteral reflux with reconstructive surgery in 08/2017. Coronary artery disease, post PTCA stents. She denies diabetes, also history of hypertension. She has been admitted to [facility] multiple times. MEDICATIONS: Include Diamox, aspirin, Plavix, Pepcid, Imdur, Ativan, metoprolol, Singulair, CellCept, prednisone, Crestor and Prograf. ALLERGIES: SHE IS ALLERGIC TO VANCOMYCIN WHICH CAUSES A RASH. FAMILY HISTORY: Positive for diabetes and hypertension. Brother on dialysis secondary to hypertension. SOCIAL HISTORY: Negative for alcohol or drug abuse. She is a nonsmoker. REVIEW OF SYSTEMS: Please see the above. She denies chills or fever or orthostatic symptoms. There was no chest pain, palpitations, cough or hemoptysis. She denied abdominal pain, nausea, vomiting or diarrhea. There was no dysuria or gross hematuria. PHYSICAL EXAMINATION GENERAL: She was awake and alert, in no acute distress. VITAL SIGNS: Her temperature was 98, her blood pressure was 118/75 and her pulse was 72. NECK: There was no JVD at 30 degrees. LUNGS: Clear. HEART: Rhythm was regular. ABDOMEN: Soft and nontender. Graft in the left lower quadrant was tender, mildly enlarged. There was no CVA tenderness or presacral edema. NEUROLOGIC: There were no gross motor deficits. IMPRESSION: Post-kidney transplant; chronic kidney disease III; end-stage renal disease, probably secondary to congenital abnormality of the kidney; hypertension; syncope, etiology unclear; coronary artery disease, post percutaneous coronary intervention and stent and ureteral reflux, post-ureteral reconstruction. Recommend transplant renal ultrasound, IV normal saline, Prograf level. Case discussed with Cardiology is that increased risk for acute kidney injury with catheterization, serial chemistries. Thank you for your kind referral. We will continue to follow with you. Elliot Underwood MD
[2017-10-04] MEDS: Sodium Chloride 0.9% 1,000 ML IV SCH ×2 (05:50→19:15)
[2017-10-04 08:41] LABS: CALCIUM 7.1 mg/dl (8.6-10.4)
--- NOTE | 2017-10-04 09:04 | CP.PCM.PN ---
<Rao Locke - Last Filed: 10/04/17 10:13> Subjective - Date & Time of Evaluation Date of Evaluation: 10/04/17 Time of Evaluation: 07:15 - Subjective Subjective: Patient seen and examined at bedside. Patient states she no longer has sensation of weakness or twitching in her leg. Was originally scheduled for cath today however due to her baseline creatinine increasing 2-fold cath is postponed. Objective - Vital Signs/Intake and Output Vital Signs (last 24 hours): Temp Pulse Resp BP Pulse Ox 97.9 F 72 20 149/85 100 10/04/17 07:05 10/04/17 07:05 10/04/17 07:05 10/04/17 07:05 10/04/17 07:05 - Medications Medications: Current Medications Acetazolamide (Diamox 250 Mg Tab) 250 mg PO BID [facility] Last Admin: 10/03/17 17:41 Dose: 250 mg Aspirin (Ecotrin) 81 mg PO DAILY [facility] Last Admin: 10/03/17 10:19 Dose: 81 mg Clopidogrel Bisulfate (Plavix) 75 mg PO DAILY [facility] Last Admin: 10/03/17 10:18 Dose: 75 mg Famotidine (Pepcid) 20 mg PO DAILY [facility] Last Admin: 10/03/17 10:18 Dose: 20 mg Sodium Chloride (Sodium Chloride 0.9%) 1,000 mls @ 75 mls/hr IV .[id number] [facility] Last Admin: 10/03/17 17:39 Dose: 75 mls/hr Isosorbide Mononitrate (Imdur Er) 30 mg PO DAILY [facility] Last Admin: 10/03/17 10:19 Dose: 30 mg Lorazepam (Ativan) 0.5 mg IVP ONCE PRN PRN Reason: for sedation prior to MRI Metoprolol Succinate (Toprol Xl) 50 mg PO DAILY [facility] Last Admin: 10/03/17 10:18 Dose: 50 mg Montelukast Sodium (Singulair) 10 mg PO HS [facility] Last Admin: 10/03/17 21:20 Dose: 10 mg Mycophenolate Mofetil (Cellcept) 500 mg PO BID [facility] Last Admin: 10/03/17 17:41 Dose: 500 mg Prednisone (Prednisone Tab) 5 mg PO DAILY [facility] Last Admin: 10/03/17 10:18 Dose: 5 mg Rosuvastatin Calcium (Crestor) 10 mg PO HS [facility] Last Admin: 10/03/17 21:20 Dose: 10 mg Tacrolimus (Prograf Cap) 1 mg PO DAILY [facility] Last Admin: 10/03/17 10:18 Dose: 1 mg Tacrolimus (Prograf Cap) 0.5 mg PO HS [facility] Last Admin: 10/03/17 21:20 Dose: 0.5 mg Tiotropium [place] (Spiriva) 18 mcg INH RQ24 [facility] Last Admin: 10/03/17 11:39 Dose: Not Given - Labs Labs: 10/03/17 09:18 10/04/17 06:10 - Constitutional Appears: Non-toxic, No Acute Distress - Head Exam Head Exam: ATRAUMATIC, NORMAL INSPECTION, NORMOCEPHALIC - Eye Exam Eye Exam: EOMI, Normal appearance - ENT Exam ENT Exam: Mucous Membranes Moist, Normal Exam - Neck Exam Neck Exam: Normal Inspection - Respiratory Exam Respiratory Exam: Clear to Ausculation Bilateral, NORMAL BREATHING PATTERN. absent: Rhonchi, Wheezes - Cardiovascular Exam Cardiovascular Exam: REGULAR RHYTHM, +S1, +S2 - GI/Abdominal Exam GI & Abdominal Exam: Soft, Normal Bowel Sounds - Extremities Exam Extremities Exam: Full ROM, Normal Inspection - Back Exam Back Exam: NORMAL INSPECTION - Neurological Exam Neurological Exam: Alert, Awake, Oriented x3 - Psychiatric Exam Psychiatric exam: Normal Affect, Normal Mood - Skin Skin Exam: Normal Color, Warm Assessment and Plan - Assessment and Plan (Free Text) Assessment: Patient is a 47 year old female with a past medical history of Kidney disease s/ p 4 renal transplants, pseudotumor cerebri, PCP pneumonia, 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 Plan: 1. Syncope r/o cardiac mechanical etiology vs orthostatics hypotension vs neurologic etiology Work up in progress: - Carotid dopplers ordered; no stenosis of vessels - Echo ordered; normal LVEF 55% - Due to history of 2 stents in 2011 (Prox LAD and Mid LAD) s/p Cath in which 98 % and 99% occlusions were found, placed pt on schedule for Cath 10/04; NPO after midnight on 10/03 - BNP 174 - Lipid panel ordered; no abnormalities - HgA1C 5.2% 2. Asthma - Patient states condition is severe - Continue with meds already on board - Also restarted patient on montelukast and advair which patient takes daily 3.DANI h/o 4 renal transplants - Cardiac cath postponed due to bump in Cr - Patient's baseline Cr is 0.7, current is 1.4; will postpone cath till renal function improves - Continue with IVF <Bautista Damon - Last Filed: 10/05/17 09:31> Objective - Vital Signs/Intake and Output Vital Signs (last 24 hours): Temp Pulse Resp BP Pulse Ox 98.1 F 70 20 133/79 95 10/05/17 08:05 10/05/17 08:06 10/05/17 08:05 10/05/17 08:05 10/05/17 08:05 - Medications Medications: Current Medications Acetazolamide (Diamox 250 Mg Tab) 250 mg PO BID [facility] Last Admin: 10/04/17 17:50 Dose: 250 mg Aspirin (Ecotrin) 81 mg PO DAILY [facility] Last Admin: 10/04/17 09:57 Dose: 81 mg Clopidogrel Bisulfate (Plavix) 75 mg PO DAILY [facility] Last Admin: 10/04/17 09:57 Dose: 75 mg Famotidine (Pepcid) 20 mg PO DAILY [facility] Last Admin: 10/04/17 09:57 Dose: 20 mg Sodium Chloride (Sodium Chloride 0.9%) 1,000 mls @ 75 mls/hr IV .[id number] [facility] Last Admin: 10/05/17 06:01 Dose: 75 mls/hr Isosorbide Mononitrate (Imdur Er) 30 mg PO DAILY [facility] Last Admin: 10/04/17 10:03 Dose: 30 mg Lorazepam (Ativan) 0.5 mg IVP ONCE PRN PRN Reason: for sedation prior to MRI Metoprolol Succinate (Toprol Xl) 50 mg PO DAILY [facility] Last Admin: 10/04/17 09:57 Dose: 50 mg Montelukast Sodium (Singulair) 10 mg PO HS [facility] Last Admin: 10/04/17 20:59 Dose: 10 mg Mycophenolate Mofetil (Cellcept) 500 mg PO BID [facility] Last Admin: 10/04/17 20:59 Dose: 500 mg Prednisone (Prednisone Tab) 5 mg PO DAILY [facility] Last Admin: 10/04/17 09:58 Dose: 5 mg Rosuvastatin Calcium (Crestor) 10 mg PO HS [facility] Last Admin: 10/04/17 20:59 Dose: 10 mg Tacrolimus (Prograf Cap) 1 mg PO DAILY [facility] Last Admin: 10/04/17 10:15 Dose: 1 mg Tacrolimus (Prograf Cap) 0.5 mg PO HS [facility] Last Admin: 10/04/17 20:59 Dose: 0.5 mg Tiotropium [place] (Spiriva) 18 mcg INH RQ24 [facility] Last Admin: 10/05/17 07:45 Dose: 18 mcg - Labs Labs: 10/03/17 09:18 10/05/17 07:08 Assessment and Plan (1) Syncope Status: Acute (2) Acute dyspnea Status: Acute (3) Chest pain Status: Acute (4) CAD S/P percutaneous coronary angioplasty Status: Chronic (5) Essential (primary) hypertension Status: Chronic Attending/Attestation - Attestation I have personally seen and examined this patient.: Yes I have fully participated in the care of the patient.: Yes I have reviewed all pertinent clinical information, including history, physical exam and plan: Yes Notes (Text): 10/05/17 09:31 plan for stress test
[2017-10-04] MEDS: Metoprolol Succinate 50 mg XL Tab PO SCH (09:57)
[2017-10-04] MEDS: Tiotropium 18 mcg Cap For Inhalation INH SCH (10:46)
--- NOTE | 2017-10-04 13:01 | CP.PCM.PN ---
Subjective - Date & Time of Evaluation Date of Evaluation: 10/04/17 Time of Evaluation: 12:59 - Subjective Subjective: Alert; no new complaint Renal TP US just done creat still 1.4 despite IV fluids no n, v, f, c, HAs, dyspnea, diarrhea Objective - Vital Signs/Intake and Output Vital Signs (last 24 hours): Temp Pulse Resp BP Pulse Ox 97.9 F 72 20 149/85 100 10/04/17 07:05 10/04/17 07:05 10/04/17 07:05 10/04/17 07:05 10/04/17 07:05 - Medications Medications: Current Medications Acetazolamide (Diamox 250 Mg Tab) 250 mg PO BID ON [facility] OF [facility] Last Admin: 10/04/17 10:03 Dose: 250 mg Aspirin (Ecotrin) 81 mg PO DAILY ON [facility] Last Admin: 10/04/17 09:57 Dose: 81 mg Clopidogrel Bisulfate (Plavix) 75 mg PO DAILY ON [facility] Last Admin: 10/04/17 09:57 Dose: 75 mg Famotidine (Pepcid) 20 mg PO DAILY ON [facility] Last Admin: 10/04/17 09:57 Dose: 20 mg Sodium Chloride (Sodium Chloride 0.9%) 1,000 mls @ 75 mls/hr IV .[id number] ON [facility] OF [facility] Last Admin: 10/03/17 17:39 Dose: 75 mls/hr Isosorbide Mononitrate (Imdur Er) 30 mg PO DAILY ON [facility] Last Admin: 10/04/17 10:03 Dose: 30 mg Lorazepam (Ativan) 0.5 mg IVP ONCE PRN PRN Reason: for sedation prior to MRI Metoprolol Succinate (Toprol Xl) 50 mg PO DAILY ON [facility] Last Admin: 10/04/17 09:57 Dose: 50 mg Montelukast Sodium (Singulair) 10 mg PO HS ON [facility] Last Admin: 10/03/17 21:20 Dose: 10 mg Mycophenolate Mofetil (Cellcept) 500 mg PO BID ON [facility] Last Admin: 10/04/17 10:12 Dose: 500 mg Prednisone (Prednisone Tab) 5 mg PO DAILY ON [facility] Last Admin: 10/04/17 09:58 Dose: 5 mg Rosuvastatin Calcium (Crestor) 10 mg PO HS ON [facility] Last Admin: 10/03/17 21:20 Dose: 10 mg Tacrolimus (Prograf Cap) 1 mg PO DAILY ON [facility] Last Admin: 10/04/17 10:15 Dose: 1 mg Tacrolimus (Prograf Cap) 0.5 mg PO HS [facility] Last Admin: 10/03/17 21:20 Dose: 0.5 mg Tiotropium [place] (Spiriva) 18 mcg INH RQ24 ON [facility] OF [facility] Last Admin: 10/04/17 10:46 Dose: 18 mcg - Labs Labs: 10/03/17 09:18 10/04/17 06:10 - Constitutional Appears: Non-toxic, No Acute Distress, Chronically Ill - Head Exam Head Exam: ATRAUMATIC, NORMAL INSPECTION - Eye Exam Eye Exam: EOMI, Normal appearance - Neck Exam Neck Exam: Normal Inspection. absent: Tenderness - Respiratory Exam Respiratory Exam: Clear to Ausculation Bilateral, NORMAL BREATHING PATTERN - Cardiovascular Exam Cardiovascular Exam: REGULAR RHYTHM, +S1 - GI/Abdominal Exam GI & Abdominal Exam: Soft. absent: Tenderness - Extremities Exam Extremities Exam: Normal Inspection, Tenderness - Neurological Exam Neurological Exam: Alert, CN II-XII Intact - Skin Skin Exam: Dry, Warm Assessment and Plan (1) DANI (acute kidney injury) Status: Acute (2) Renal transplant disorder Status: Acute (3) CAD S/P percutaneous coronary angioplasty Status: Chronic (4) Essential (primary) hypertension Status: Chronic - Assessment and Plan (Free Text) Plan: continue IV fluids check TP US serial chemistries check FK level
--- NOTE | 2017-10-04 14:23 | US ---
PROCEDURE: Ultrasound of the Kidneys HISTORY: transplant renal ultrasound,ureteral reflux COMPARISON: None available. TECHNIQUE: Sonogram of the kidneys. FINDINGS: RIGHT KIDNEY: Not submitted. LEFT KIDNEY: Not submitted. OTHER FINDINGS: Chest 2 acute is identified at the left lower quadrant abdomen/ upper pelvis demonstrating gross hydronephrosis, at least grade 4 degrade 5 severity, with tremendous pelvocaliceal dilatation diffusely but no definite solid or cystic renal mass or urolithiasis. No perinephric fluid collection is appreciated. Clinically correlate further. Consider possible MRI for additional characterization. IMPRESSION: Gross left hydronephrosis in a left lower quadrant/pelvis transplant kidney of indeterminate etiology. Consider conduit obstruction intrinsically or extrinsically. The bilateral [place] kidneys evident in not been submitted for evaluation in this exam.
[2017-10-04 19:05] LABS: RBC URINE 1 /hpf (0-3); TRANSITIONAL EPITHIAL < 1 /hpf (0-3); URINE BACTERIA RARE (<OCC); URINE BILIRUBIN NEGATIVE (NEGATIVE); URINE BLOOD NEGATIVE (NEGATIVE); URINE COLOR Straw (YELLOW); URINE GLUCOSE (UA) NORMAL (Normal); URINE KETONE NEGATIVE (NEGATIVE); URINE LEUKOCYTE ESTERASE NEG Leu/uL (Negative); URINE PROTEIN NEGATIVE (NEGATIVE); URINE UROBILINOGEN NORMAL mg/dL (0.2-1.0); WBC URINE 2 /hpf (0-5)
--- NOTE | 2017-10-04 20:11 | CP.PCM.PN ---
Subjective - Date & Time of Evaluation Date of Evaluation: 10/04/17 Time of Evaluation: 12:20 - Subjective Subjective: clinically same Objective - Vital Signs/Intake and Output Vital Signs (last 24 hours): Temp Pulse Resp BP Pulse Ox 97.9 F 80 20 125/77 100 10/04/17 15:15 10/04/17 15:15 10/04/17 15:15 10/04/17 15:15 10/04/17 15:15 Intake and Output: 10/04/17 10/05/17 18:59 06:59 Intake Total 200 Balance 200 - Medications Medications: Current Medications Acetazolamide (Diamox 250 Mg Tab) 250 mg PO BID [facility] Last Admin: 10/04/17 17:50 Dose: 250 mg Aspirin (Ecotrin) 81 mg PO DAILY [facility] Last Admin: 10/04/17 09:57 Dose: 81 mg Clopidogrel Bisulfate (Plavix) 75 mg PO DAILY [facility] Last Admin: 10/04/17 09:57 Dose: 75 mg Famotidine (Pepcid) 20 mg PO DAILY [facility] Last Admin: 10/04/17 09:57 Dose: 20 mg Sodium Chloride (Sodium Chloride 0.9%) 1,000 mls @ 75 mls/hr IV .[id number] [facility] Last Admin: 10/03/17 17:39 Dose: 75 mls/hr Isosorbide Mononitrate (Imdur Er) 30 mg PO DAILY [facility] Last Admin: 10/04/17 10:03 Dose: 30 mg Lorazepam (Ativan) 0.5 mg IVP ONCE PRN PRN Reason: for sedation prior to MRI Metoprolol Succinate (Toprol Xl) 50 mg PO DAILY [facility] Last Admin: 10/04/17 09:57 Dose: 50 mg Montelukast Sodium (Singulair) 10 mg PO HS [facility] Last Admin: 10/03/17 21:20 Dose: 10 mg Mycophenolate Mofetil (Cellcept) 500 mg PO BID [facility] Last Admin: 10/04/17 10:12 Dose: 500 mg Prednisone (Prednisone Tab) 5 mg PO DAILY [facility] Last Admin: 10/04/17 09:58 Dose: 5 mg Rosuvastatin Calcium (Crestor) 10 mg PO HS [facility] Last Admin: 10/03/17 21:20 Dose: 10 mg Tacrolimus (Prograf Cap) 1 mg PO DAILY [facility] Last Admin: 10/04/17 10:15 Dose: 1 mg Tacrolimus (Prograf Cap) 0.5 mg PO HS [facility] Last Admin: 10/03/17 21:20 Dose: 0.5 mg Tiotropium [place] (Spiriva) 18 mcg INH RQ24 [facility] Last Admin: 10/04/17 10:46 Dose: 18 mcg - Labs Labs: 10/03/17 09:18 10/04/17 06:10 - Constitutional Appears: Well - Head Exam Head Exam: ATRAUMATIC, NORMAL INSPECTION, NORMOCEPHALIC - Eye Exam Eye Exam: EOMI, Normal appearance, PERRL Pupil Exam: NORMAL ACCOMODATION, PERRL - ENT Exam ENT Exam: Mucous Membranes Moist, Normal Exam - Neck Exam Neck Exam: Full ROM, Normal Inspection. absent: Lymphadenopathy - Respiratory Exam Respiratory Exam: Clear to Ausculation Bilateral, NORMAL BREATHING PATTERN - Cardiovascular Exam Cardiovascular Exam: REGULAR RHYTHM, +S1, +S2. absent: Murmur - GI/Abdominal Exam GI & Abdominal Exam: Soft, Normal Bowel Sounds. absent: Tenderness - Rectal Exam Rectal Exam: Deferred - Extremities Exam Extremities Exam: Full ROM, Normal Capillary Refill, Normal Inspection. absent : Joint Swelling, Pedal Edema - Back Exam Back Exam: NORMAL INSPECTION Assessment and Plan - Assessment and Plan (Free Text) Plan: Patient examined. Patient better. Creatinine at 1.4, so cath procedure has been postponed. Continue aspirin and clopidogrel. Continue antihypertensive medications. Continue bronchodilators. Continue tacrolimus. Continue supportive care.
[2017-10-05] MEDS: Sodium Chloride 0.9% 1,000 ML IV SCH ×2 (06:01→08:30)
[2017-10-05] MEDS: Tiotropium 18 mcg Cap For Inhalation INH SCH (07:45)
--- NOTE | 2017-10-05 07:58 | CP.PCM.PN ---
Subjective - Date & Time of Evaluation Date of Evaluation: 10/05/17 Time of Evaluation: 06:30 - Subjective Subjective: Patient seen and examined at bedside in no acute distress. Patient states she prefers to be transferred to [facility] where she had her renal transplant and ureter reflux surgery performed. 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 Patient concerned about creatinine being 1.4 when her baseline is 0.7. Discussed with patient results of her renal US which shows hydronephrosis of left kidney transplant. Also discussed with patient importance of watching her diet as patient has been noted to consume soda and chips often. Denies numbness, tingling, weakness, chest pain, shortness of breath, abdominal pain, fever, chills, nausea, vomiting, diarrhea. Objective - Vital Signs/Intake and Output Vital Signs (last 24 hours): Temp Pulse Resp BP Pulse Ox 98 F 70 20 120/76 99 10/05/17 00:00 10/05/17 04:02 10/05/17 00:00 10/05/17 00:00 10/05/17 00:00 - Medications Medications: Current Medications Acetazolamide (Diamox 250 Mg Tab) 250 mg PO BID [facility] Last Admin: 10/04/17 17:50 Dose: 250 mg Aspirin (Ecotrin) 81 mg PO DAILY [facility] Last Admin: 10/04/17 09:57 Dose: 81 mg Clopidogrel Bisulfate (Plavix) 75 mg PO DAILY [facility] Last Admin: 10/04/17 09:57 Dose: 75 mg Famotidine (Pepcid) 20 mg PO DAILY [facility] Last Admin: 10/04/17 09:57 Dose: 20 mg Sodium Chloride (Sodium Chloride 0.9%) 1,000 mls @ 75 mls/hr IV .[id number] [facility] Last Admin: 10/05/17 06:01 Dose: 75 mls/hr Isosorbide Mononitrate (Imdur Er) 30 mg PO DAILY [facility] Last Admin: 10/04/17 10:03 Dose: 30 mg Lorazepam (Ativan) 0.5 mg IVP ONCE PRN PRN Reason: for sedation prior to MRI Metoprolol Succinate (Toprol Xl) 50 mg PO DAILY [facility] Last Admin: 10/04/17 09:57 Dose: 50 mg Montelukast Sodium (Singulair) 10 mg PO HS [facility] Last Admin: 10/04/17 20:59 Dose: 10 mg Mycophenolate Mofetil (Cellcept) 500 mg PO BID [facility] Last Admin: 10/04/17 20:59 Dose: 500 mg Prednisone (Prednisone Tab) 5 mg PO DAILY [facility] Last Admin: 10/04/17 09:58 Dose: 5 mg Rosuvastatin Calcium (Crestor) 10 mg PO HS [facility] Last Admin: 10/04/17 20:59 Dose: 10 mg Tacrolimus (Prograf Cap) 1 mg PO DAILY [facility] Last Admin: 10/04/17 10:15 Dose: 1 mg Tacrolimus (Prograf Cap) 0.5 mg PO HS [facility] Last Admin: 10/04/17 20:59 Dose: 0.5 mg Tiotropium [place] (Spiriva) 18 mcg INH RQ24 [facility] Last Admin: 10/05/17 07:45 Dose: 18 mcg - Labs Labs: 10/03/17 09:18 10/04/17 06:10 - Constitutional Appears: Non-toxic, No Acute Distress - Head Exam Head Exam: ATRAUMATIC, NORMAL INSPECTION, NORMOCEPHALIC - Eye Exam Eye Exam: EOMI, Normal appearance - ENT Exam ENT Exam: Mucous Membranes Moist, Normal Exam - Respiratory Exam Respiratory Exam: Clear to Ausculation Bilateral, NORMAL BREATHING PATTERN. absent: Rhonchi, Wheezes - Cardiovascular Exam Cardiovascular Exam: REGULAR RHYTHM, +S1, +S2 - GI/Abdominal Exam GI & Abdominal Exam: Soft, Normal Bowel Sounds - Extremities Exam Extremities Exam: Normal Inspection - Back Exam Back Exam: NORMAL INSPECTION - Neurological Exam Neurological Exam: Alert, Awake, Oriented x3 - Psychiatric Exam Psychiatric exam: Normal Affect, Normal Mood - Skin Skin Exam: Normal Color, Warm Assessment and Plan - Assessment and Plan (Free Text) Assessment: Patient is a 47 year old female with a past medical history of Kidney disease s/ p 4 renal transplants, pseudotumor cerebri, PCP pneumonia, 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 for further evaluation of syncopal episode. Plan: 1. Syncope r/o cardiac mechanical etiology vs orthostatics hypotension vs neurologic etiology Work up in progress: - Carotid dopplers ordered; no stenosis of vessels - Echo ordered; normal LVEF 55% - Due to history of 2 stents in 2011 (Prox LAD and Mid LAD) s/p Cath in which 98 % and 99% occlusions were found, placed pt on schedule for Cath 10/04; NPO after midnight on 10/03 - BNP 174 - Lipid panel ordered; no abnormalities - HgA1C 5.2% 2. Asthma - Patient states condition is severe - Continue with meds already on board - Also restarted patient on montelukast and advair which patient takes daily 3.DANI h/o 4 renal transplants - Cardiac cath cancelled due to bump in Cr - Patient's baseline Cr is 0.7, current is 1.4; will perform nuclear stress test - Continue with IVF - Patient desires transfer to [facility] where she had her renal surgeries performed
[2017-10-05 08:10] LABS: BILIRUBIN,TOTAL 0.5 mg/dL (0.2-1.3); CALCIUM 6.6 mg/dl (8.6-10.4); MAGNESIUM 1.2 mg/dL (1.6-2.3); PHOSPHOROUS 4.6 mg/dL (2.5-4.5); POTASSIUM 3.7 mmol/L (3.6-5.2); TOTAL PROTEIN 5.4 g/dL (6.3-8.3)
[2017-10-05 08:14] LABS: ALB/GLOB RATIO 1.5 (1.0-2.1)
[2017-10-05] MEDS ORDERED: Aminophylline 25 mg/ml Inj ONE (08:36)
--- NOTE | 2017-10-05 09:19 | PN ---
DATE: 10/05/2017 NEUROLOGICAL PROBLEMS: Status post TIA versus focal seizures. PHYSICAL EXAMINATION: VITAL SIGNS: Blood pressure 120/76, mean arterial pressure of 90, respiratory rate 18, temperature afebrile, and pulse rate 70 and regular. NEUROLOGICAL: The patient is more awake and alert. Speech is clear. No new neurological deficits. No new event is noted or complained. The examination is unchanged when compared with my previous examination. WORKUP: MRI of the brain, no structural pathology that could explain her symptoms that brought in to the hospital. Electroencephalogram shows mild slow activities without any focal paroxysmal activities or slowing. ASSESSMENT AND PLAN: The patient stated that her cardiac catheterization is on hold due to her high creatinine level. The patient would like to go to [facility] because of her condition being well-known and treated by the equipment mechanic in [place]. Continue present antiplatelet treatment. I totally agree with her concern of transferring herself to [facility]. Donte Vora MD
[2017-10-05] MEDS: Metoprolol Succinate 50 mg XL Tab PO SCH (10:39)
--- NOTE | 2017-10-05 11:15 | CP.PCM.PN ---
Subjective - Date & Time of Evaluation Date of Evaluation: 10/05/17 Time of Evaluation: 11:13 - Subjective Subjective: seen and examined c/o loose stool x 2 reports good urine output denies any nausea vomiting sob dizziness headache rash c/o left lower abd pain renal transplant US noted transplant hx: DDRTx 2007, baseline creatinine < 1 mg/dl, no prior episodes of rejection. [facility] Objective - Vital Signs/Intake and Output Vital Signs (last 24 hours): Temp Pulse Resp BP Pulse Ox 98.1 F 70 20 133/79 95 10/05/17 08:05 10/05/17 08:06 10/05/17 08:05 10/05/17 08:05 10/05/17 08:05 - Medications Medications: Current Medications Acetazolamide (Diamox 250 Mg Tab) 250 mg PO BID [facility] Last Admin: 10/05/17 10:40 Dose: 250 mg Aspirin (Ecotrin) 81 mg PO DAILY [facility] Last Admin: 10/05/17 10:40 Dose: 81 mg Clopidogrel Bisulfate (Plavix) 75 mg PO DAILY [facility] Last Admin: 10/05/17 10:39 Dose: 75 mg Famotidine (Pepcid) 20 mg PO DAILY [facility] Last Admin: 10/05/17 10:39 Dose: 20 mg Sodium Chloride (Sodium Chloride 0.9%) 1,000 mls @ 75 mls/hr IV .[id number] [facility] Last Admin: 10/05/17 08:30 Dose: Not Given Isosorbide Mononitrate (Imdur Er) 30 mg PO DAILY [facility] Last Admin: 10/05/17 10:39 Dose: 30 mg Lorazepam (Ativan) 0.5 mg IVP ONCE PRN PRN Reason: for sedation prior to MRI Metoprolol Succinate (Toprol Xl) 50 mg PO DAILY [facility] Last Admin: 10/05/17 10:39 Dose: 50 mg Montelukast Sodium (Singulair) 10 mg PO HS [facility] Last Admin: 10/04/17 20:59 Dose: 10 mg Mycophenolate Mofetil (Cellcept) 500 mg PO BID [facility] Last Admin: 10/05/17 10:38 Dose: 500 mg Prednisone (Prednisone Tab) 5 mg PO DAILY [facility] Last Admin: 10/05/17 10:39 Dose: 5 mg Rosuvastatin Calcium (Crestor) 10 mg PO HS [facility] Last Admin: 10/04/17 20:59 Dose: 10 mg Tacrolimus (Prograf Cap) 1 mg PO DAILY [facility] Last Admin: 10/05/17 10:45 Dose: 1 mg Tacrolimus (Prograf Cap) 0.5 mg PO HS [facility] Last Admin: 10/04/17 20:59 Dose: 0.5 mg Tiotropium [place] (Spiriva) 18 mcg INH RQ24 [facility] Last Admin: 10/05/17 07:45 Dose: 18 mcg - Labs Labs: 10/03/17 09:18 10/05/17 07:08 - Constitutional Appears: Non-toxic, No Acute Distress - Head Exam Head Exam: NORMAL INSPECTION - Eye Exam Eye Exam: Normal appearance - ENT Exam ENT Exam: Mucous Membranes Moist, Normal Exam - Neck Exam Neck Exam: Normal Inspection - Respiratory Exam Respiratory Exam: Clear to Ausculation Bilateral, NORMAL BREATHING PATTERN - Cardiovascular Exam Cardiovascular Exam: REGULAR RHYTHM, RRR - GI/Abdominal Exam GI & Abdominal Exam: Distended (ttp llq), Soft - Extremities Exam Extremities Exam: Normal Inspection - Back Exam Back Exam: NORMAL INSPECTION - Psychiatric Exam Psychiatric exam: Depressed, Normal Affect - Skin Skin Exam: Normal Color, Warm Assessment and Plan (1) DANI (acute kidney injury) Status: Acute (2) Seizure Status: Acute (3) Syncope Status: Acute (4) Renal transplant disorder Status: Acute (5) Essential (primary) hypertension Status: Chronic - Assessment and Plan (Free Text) Assessment: transplant hydronephrosis dc diamox blair to be placed urology consult placed w/ mando Ruiz.
--- NOTE | 2017-10-05 14:33 | CP.PCM.PN ---
Subjective - Date & Time of Evaluation Date of Evaluation: 10/05/17 Time of Evaluation: 14:26 - Subjective Subjective: PATIENT WAS ADMITTED FOR [facility]NC[facility], SEIZURE VS TIA; PATIENT IS AAOX 3; PATIENT DENIES THAT SHE IS NO LONGER HAD SENSATION OF WEAKNESS OR TWITCHING IN HER LEG; DENIES ANY CHEST PAIN, SOB OR FLANK PAIN; NO SIGN OF ACUTE DISTRESS NOTED Objective - Vital Signs/Intake and Output Vital Signs (last 24 hours): Temp Pulse Resp BP Pulse Ox 98.1 F 70 20 133/79 95 10/05/17 08:05 10/05/17 08:06 10/05/17 08:05 10/05/17 08:05 10/05/17 08:05 - Medications Medications: Current Medications Aspirin (Ecotrin) 81 mg PO DAILY [facility] Last Admin: 10/05/17 10:40 Dose: 81 mg Clopidogrel Bisulfate (Plavix) 75 mg PO DAILY [facility] Last Admin: 10/05/17 10:39 Dose: 75 mg Famotidine (Pepcid) 20 mg PO DAILY [facility] Last Admin: 10/05/17 10:39 Dose: 20 mg Sodium Chloride (Sodium Chloride 0.9%) 1,000 mls @ 75 mls/hr IV .[id number] [facility] Last Admin: 10/05/17 08:30 Dose: Not Given Isosorbide Mononitrate (Imdur Er) 30 mg PO DAILY [facility] Last Admin: 10/05/17 10:39 Dose: 30 mg Lorazepam (Ativan) 0.5 mg IVP ONCE PRN PRN Reason: for sedation prior to MRI Metoprolol Succinate (Toprol Xl) 50 mg PO DAILY [facility] Last Admin: 10/05/17 10:39 Dose: 50 mg Montelukast Sodium (Singulair) 10 mg PO HS [facility] Last Admin: 10/04/17 20:59 Dose: 10 mg Mycophenolate Mofetil (Cellcept) 500 mg PO BID [facility] Last Admin: 10/05/17 10:38 Dose: 500 mg Prednisone (Prednisone Tab) 5 mg PO DAILY [facility] Last Admin: 10/05/17 10:39 Dose: 5 mg Rosuvastatin Calcium (Crestor) 10 mg PO HS [facility] Last Admin: 10/04/17 20:59 Dose: 10 mg Tacrolimus (Prograf Cap) 1 mg PO DAILY [facility] Last Admin: 10/05/17 10:45 Dose: 1 mg Tacrolimus (Prograf Cap) 0.5 mg PO HS [facility] Last Admin: 10/04/17 20:59 Dose: 0.5 mg Tiotropium [place] (Spiriva) 18 mcg INH RQ24 [facility] Last Admin: 10/05/17 07:45 Dose: 18 mcg - Labs Labs: 10/03/17 09:18 10/05/17 07:08 - Constitutional Appears: Well - Eye Exam Pupil Exam: NORMAL ACCOMODATION - GI/Abdominal Exam GI & Abdominal Exam: Normal Bowel Sounds - Exam Additional comments: US RENAL SHOW HYDRONEPHROSIS AND CR IS 1.4 Assessment and Plan - Assessment and Plan (Free Text) Assessment: A/P PATIENT IS SEEN AND EXAMINED AT THE BEDSIDE; CREATININE ELEVATED AND US RENAL SHOW HYDRONEPHROSIS PATIENT WILL BE DC TODAY TO GO SEE HER THEATRE PROFESSOR IN [place] WHERE PATIENT HAD THE KIDNEY TRANSPLANT DONE PER PATIENT REQUEST CONTINUE ALL HOME MEDS PER MED RECS NEW RX PER NEURO DR HIGGINS PLAVIX 75 MG PO DAILY PATIENT MADE AWARE ABOUT HER KIDNEY FUNCTION AND RENAL US SHOW HYDRONEPHROSIS UROLOGY CONSULT PLACED BUT PATIENT DESIRE TO GO TO [facility] WHERE SHE HAD HER RENAL SURGERY PERFORMED FOLLOW UP WITH [facility] FOR ELEVATED CREATININE AND HYDRONEPHROSIS PATIENT STATES THAT SHE WILL GO HOME FIRST SHOWER THEN GO TO [facility] FOR F/U TODAY DISCUSS WITH PATIENT AND SHE AGREED AND VERBALIZED UNDERSTANDING
[2017-10-05 15:57] VITALS: BP 121/74; PULSE 73; TEMP 98; O2SAT 97
--- NOTE | 2017-10-05 16:19 | CP.PCM.PN ---
Subjective - Date & Time of Evaluation Date of Evaluation: 10/05/17 Time of Evaluation: 11:40 - Subjective Subjective: clinically same Objective - Vital Signs/Intake and Output Vital Signs (last 24 hours): Temp Pulse Resp BP Pulse Ox 98 F 73 20 121/74 97 10/05/17 15:00 10/05/17 15:00 10/05/17 15:00 10/05/17 15:00 10/05/17 15:00 Intake and Output: 10/05/17 10/05/17 06:59 18:59 Intake Total 650 Balance 650 - Labs Labs: 10/03/17 09:18 10/05/17 07:08
--- NOTE | 2017-10-06 13:11 | CARD ---
APPROVED REPORT Protocol: LEXISCAN Test Type: LEXISCAN STRESS Test Indications: CAD Target HR: 175 bpm Resting ECG: normal Resting Heart Rate: 76 bpm Resting Blood Pressure: 132/80mmHg submaximum (85%): 149 bpm TEST SUMMARY [id number]:02..1.071/.0. PREINFSNHYPERV.07:[id number]/80.0. INFUSIONDOSE 100:300.00.01.080/.0. [id number]:[id number]/80.0. PROCEDURE Pharmacologic stress testing was performed using 0.4mg per 5ml of regadenoson given intravenously over 7-10 seconds. Reversal agent aminophyline 50 mg, given intravenously for Headache. POST EXERCISE Reason for Termination: Protocol Completed Target HR: No Max HR: 80 bpm 54% of Maximum Predicted HR: 175 bpm Exercise duration: 00:30 min:sec, 0 Stage Exercise capacity: 1.0METs Max Blood Pressure: 132/80mmHg Blood Pressure response to exercise: N/A Heart Rate response to exercise: N/A Chest Pain: Yes, limiting Angina index: 0 Arrhythmia: No, none ST Change: No, none Deviation: 0 mm EXAM: Myocardial Perfusion STRESS/REST Imaging Protocol The imaging protocol used to acquire images was Stress Tc-99m/rest Tc-99m 1 day Rest Spect myocardial perfusion imaging was performed in supine position 45 minutes following the injection of 32.1 mCi of Tc-99 Myoview. Gated Stress Spect was performed 45 minutes after intravenous 12.7 mCi Tc-99 Myoview injection. The images were gated to evaluate regional wall motion and calculate ventricular ejection fraction.Images were reconstructed using backfilter projection method in short horizontal and verticle long axis. Spect slices were generated. RESTING DATA EDV56.00tmUT4.10L/min ESV13.00mlMyocardial Mass98.00g Av. Heart Rate73.00bpm EF77.00% STRESS DATA EDV48.45vfJC4.90L/min ESV12.00mlMyocardial Mass87.00g EF75.00% Regional WT score at stress:0.00 Regional WM score at stress:0.00 Summed WT score at stress:4.00 Av. Heart Rate78.00bpmSummed WM score at stress:2.00 Study quality was fair. Left Ventricular size was Normal at Rest and Stress. Lung uptake was Normal. Left Ventricular ejection fraction is 75%. LV Perfusion 1 Perfusion Defect Location: mid anteroseptal Perfusion Defect Size: Medium (3-4 segments) Perfusion Defect Severity: Severe Type of Perfusion Defect: Reversible TCD/TID: No LV Perf. Quant 17 Seg. SSS12.00 17 Seg. SRS2.00 17 Seg. SDS10.00 Stress Defect Extent (% LAD)9.40Rest Defect Extent (% LAD)0.00Rev. Defect Extent (% LAD)9.40 Stress Defect Extent (% LCX)43.80Rest Defect Extent (% LCX)21.30Rev. Defect Extent (% LCX)23.80 Stress Defect Extent (% RCA)0.00Rest Defect Extent (% RCA)0.00Rev. Defect Extent (% RCA)0.00 Stress Defect Extent (% SANDY)22.20Rest Defect Extent (% SANDY)4.60Rev. Defect Extent (% SANDY)17.00 Other Information Quality:Fair Overall Exercise Capacity: not evaluated IMPRESSION Abnormal Myocardial Perfusion exercise stress study Diseased Vessels: Left Anterior Descending Global LV Function: Normal Stress Test Summary: Nondiagnostic LV Perfusion Summary: Abnormal Metabolism/Perfusion Defects: Medium sized severe intensity anteroseptal defect Conclusion 1. - Ischemia in the distal LAD territory 2. - Normal LVEF 3. - will need further evaluation with cardiac catheterization
== END 2017-10-05 15:58 | disposition home or self-care (01) | DRG 543 ==
LOC: C.ER 15:29 → C.9E 17:33 → C.6T 18:41
PROVIDERS: ADMIT Internal Medicine Nephrology; ATTEND Internal Medicine Nephrology
DX: R55 Syncope and collapse (principal); N17.9 Acute kidney failure, unspecified; I13.2 Hypertensive heart and chronic kidney disease with heart failure and with stage 5 chronic kidney disease, or end stage renal disease; I11.0 Hypertensive heart disease with heart failure; I50.9 Heart failure, unspecified; N13.30 Unspecified hydronephrosis; N18.6 End stage renal disease; J45.909 Unspecified asthma, uncomplicated; E78.00 Pure hypercholesterolemia, unspecified; I25.10 Atherosclerotic heart disease of native coronary artery without angina pectoris; Z98.61 Coronary angioplasty status; Z88.1 Allergy status to other antibiotic agents; Z94.0 Kidney transplant status; Z87.891 Personal history of nicotine dependence

== ENCOUNTER 2018-08-29 16:56 | Inpatient (IN) | payer MEDICAID ==
[2018-08-29] MEDS ORDERED: Aspirin 325 mg EC Tablets PO STA (17:13)
[2018-08-29 17:23] LABS: BASO % 0.4 % (0.0-2.0); EOS % 0.5 % (0.0-4.0); HEMOGLOBIN 10.9 g/dL (11.0-16.0); LYMPH # 1.2 K/uL (1.0-4.3); LYMPH % 12.7 % (20.0-40.0); MEAN CORPUSCULAR HGB CONC 34.8 g/dL (33.0-37.0); MEAN PLATELET VOLUME 9.1 fL (7.2-11.7); MONO # 0.4 K/uL (0.0-0.8); MONO % 4.3 % (0.0-10.0); NEUT # 7.6 K/uL (1.8-7.0); NEUT % 82.1 % (50.0-75.0); RBC 3.63 Mil/uL (3.80-5.20); RED CELL DISTRIBUTION WIDTH 14.2 % (11.5-14.5); WHITE BLOOD COUNT 9.2 K/uL (4.8-10.8)
[2018-08-29 17:26] LABS: MEAN CELL VOLUME 86.3 fL (81.0-99.0)
--- NOTE | 2018-08-29 17:43 | RAD ---
HISTORY: chest pain COMPARISON: Chest x-ray performed 09/30/17 TECHNIQUE: Chest, one view. FINDINGS: LUNGS: Hyperinflation may be seen in the setting of COPD. Right hilar/infrahilar patchy opacity may reflect pneumonia or atelectasis. Please note that chest x-ray has limited sensitivity for the detection of pulmonary masses. PLEURA: No significant pleural effusion identified. No definite pneumothorax . CARDIOVASCULAR: Borderline cardiomegaly. Atherosclerotic calcification present. OSSEOUS STRUCTURES: Degenerative changes. VISUALIZED UPPER ABDOMEN: Unremarkable. OTHER FINDINGS: None. IMPRESSION: Hyperinflation may be seen in the setting of COPD. Right hilar/infrahilar patchy opacity may reflect pneumonia or atelectasis. Borderline cardiomegaly.
[2018-08-29 17:45] LABS: ALB/GLOB RATIO 1.5 (1.0-2.1); ALBUMIN 3.9 g/dL (3.5-5.0); ALT/SGPT 34 U/L (9-52); AST/SGOT 27 U/L (14-36); BLOOD UREA NITROGEN 27 mg/dL (7-17); CALCIUM 9.4 mg/dl (8.6-10.4); GFR NON-AFRICAN AMERICAN 60
[2018-08-29 19:37] VITALS: RESP 20
--- NOTE | 2018-08-29 20:12 | CP.PCM.PN ---
Subjective - Date & Time of Evaluation Date of Evaluation: 08/29/18 Time of Evaluation: 20:12 - Subjective Subjective: H&P dictated #[id number] Objective - Vital Signs/Intake and Output Vital Signs (last 24 hours): Temp Pulse Resp BP Pulse Ox 97.8 F 78 20 107/64 97 08/29/18 19:30 08/29/18 19:30 08/29/18 19:30 08/29/18 19:30 08/29/18 19:30 - Labs Labs: 08/29/18 17:19 08/29/18 17:19
--- NOTE | 2018-08-29 20:14 | C.PDOC ---
History Of Present Illness 48 year old female with a history of catheterization (2 years ago), stents x2 (6 years ago), and hypertension presents to the ED for evaluation of chest pain that began 2pm today. Patient reports taking 1 sublingual nitroglycerin tablet with improvement but 1 hour later the symptoms returned and notes taking 1 additional sublingual nitroglycerin tablet with improvement. She also notes the catheterization was 2 years ago and was cleared of further blockage. Denies chest pain, fever, shortness of breath, fever, cough, nausea, vomiting, and any other associated symptoms. Time Seen by Provider: 08/29/18 17:12 Chief Complaint (Nursing): Chest Pain History Per: Patient History/Exam Limitations: no limitations Onset/Duration Of Symptoms: Hrs Current Symptoms Are (Timing): Still Present Past Medical History Reviewed: Historical Data, Nursing Documentation, Vital Signs Vital Signs: Last Vital Signs Temp 97.8 F 08/29/18 19:30 Pulse 78 08/29/18 19:30 Resp 20 08/29/18 19:30 BP 107/64 08/29/18 19:30 Pulse Ox 97 08/29/18 19:30 - Medical History PMH: Asthma, CAD ((+) 2 stents), CHF, HTN, Hypercholesterolemia, Chronic Kidney Disease Surgical History: Coronary Stent (x2) - [facility] Procedures INJECT/INFUSE NEC (07/28/14) Family History: States: Unknown Family Hx - Social History Hx Alcohol Use: No Hx Substance Use: No - Immunization History Hx Tetanus Toxoid Vaccination: No Hx Influenza Vaccination: No Hx Pneumococcal Vaccination: Yes (2013) Review Of Systems Except As Marked, All Systems Reviewed And Found Negative. Constitutional: Negative for: Fever Cardiovascular: Positive for: Chest Pain Respiratory: Negative for: Cough, Shortness of Breath Gastrointestinal: Negative for: Nausea, Vomiting Physical Exam - Physical Exam Appears: Well, No Acute Distress Skin: Normal Color, Warm, Dry Head: Atraumatic, Normacephalic Eye(s): bilateral: Normal Inspection Oral Mucosa: Moist Neck: Normal ROM, Supple Chest: Symmetrical, No Deformity Cardiovascular: Rhythm Regular, No Murmur Respiratory: Normal Breath Sounds, No Rales, No Rhonchi, No Wheezing Gastrointestinal/Abdominal: Normal Exam, Soft, No Tenderness Neurological/Psych: Oriented x3, Normal Speech, Normal Motor, Normal Sensation, Normal Reflexes ED Course And Treatment - Laboratory Results Result Diagrams: 08/29/18 17:19 08/29/18 17:19 ECG Rhythm: Sinus Rhythm Interpretation Of ECG: --sinus rhythm 80 bpm. --normal axis Rate From EC O2 Sat by Pulse Oximetry: 97 (RA) Pulse Ox Interpretation: Normal - Other Rad CXR X-Ray: Viewed By Me, Read By Radiologist Interpretation: FINDINGS: LUNGS: Hyperinflation may be seen in the setting of COPD. Right hilar/infrahilar patchy opacity may reflect pneumonia or atelectasis. Please note that chest x-ray has limited sensitivity for the detection of pulmonary masses. PLEURA: No significant pleural effusion identified. No definite pneumothorax . CARDIOVASCULAR: Borderline cardiomegaly. Atherosclerotic calcification present. OSSEOUS STRUCTURES: Degenerative changes. VISUALIZED UPPER ABDOMEN: Unremarkable. OTHER FINDINGS: None. IMPRESSION: Hyperinflation may be seen in the setting of COPD. Right hilar/infrahilar patchy opacity may reflect pneumonia or atelectasis. Borderline cardiomegaly. Medical Decision Making Medical Decision Making: Plan: --EKG --Blood sent. --ECHO Comp. w/ M Mode/C Flow/DOP --CXR --Urinalysis. --Ecotrin. Disposition - Disposition Disposition: HOSPITALIZED Disposition Time: 18:00 Condition: STABLE - Clinical Impression Clinical Impression: Chest pain - Scribe Statement The provider has reviewed the documentation as recorded by the Scribe (Divya Muller) Provider Attestation: All medical record entries made by the Scribe were at my direction and personally dictated by me. I have reviewed the chart and agree that the record accurately reflects my personal performance of the history, physical exam, medical decision making, and the department course for this patient. I have also personally directed, reviewed, and agree with the discharge instructions and disposition.
[2018-08-29 23:19] LABS: SQUAMOUS EPITHIAL 4 /hpf (0-5); URINE BACTERIA RARE (<OCC); URINE BILIRUBIN NEGATIVE (NEGATIVE); URINE BLOOD 3+ (NEGATIVE); URINE CLARITY Hazy (Clear); URINE COLOR Yellow (YELLOW); URINE GLUCOSE (UA) NORMAL (Normal); URINE LEUKOCYTE ESTERASE 3+ Leu/uL (Negative); URINE PROTEIN 1+ mg/dL (NEGATIVE); URINE UROBILINOGEN NORMAL mg/dL (0.2-1.0)
[2018-08-30] MEDS: Sodium Chloride 0.45% 1,000 ML IV SCH ×3 (00:21→17:29)
[2018-08-30 07:50] LABS: BASO % 0.5 % (0.0-2.0); EOS # 0.2 K/uL (0.0-0.7); EOS % 3.3 % (0.0-4.0); HEMOGLOBIN 10.7 g/dL (11.0-16.0); LYMPH # 2.2 K/uL (1.0-4.3); LYMPH % 31.4 % (20.0-40.0); MEAN CELL VOLUME 87.8 fL (81.0-99.0); MEAN CORPUSCULAR HEMOGLOBIN 30.1 pg (27.0-31.0); MEAN CORPUSCULAR HGB CONC 34.2 g/dL (33.0-37.0); MEAN PLATELET VOLUME 9.1 fL (7.2-11.7); MONO # 0.7 K/uL (0.0-0.8); MONO % 9.8 % (0.0-10.0); NEUT # 3.8 K/uL (1.8-7.0); RBC 3.55 Mil/uL (3.80-5.20); RED CELL DISTRIBUTION WIDTH 14.2 % (11.5-14.5); WHITE BLOOD COUNT 6.9 K/uL (4.8-10.8)
[2018-08-30] MEDS: Tiotropium 18 mcg Cap For Inhalation INH SCH (08:00)
[2018-08-30 08:19] LABS: ALB/GLOB RATIO 1.5 (1.0-2.1); ALBUMIN 3.8 g/dL (3.5-5.0); ALT/SGPT 28 U/L (9-52); AST/SGOT 27 U/L (14-36); BLOOD UREA NITROGEN 26 mg/dL (7-17); CALCIUM 9.1 mg/dl (8.6-10.4); GFR NON-AFRICAN AMERICAN 60; HDL CHOLESTEROL 43 mg/dL (30-70)
[2018-08-30 08:30] LABS: LDL CHOLESTEROL 62 mg/dL (0-129)
--- NOTE | 2018-08-30 09:36 | HP ---
CHIEF COMPLAINT: Left-sided chest pain occurred two times this afternoon which made her come to the emergency room. HISTORY OF PRESENT ILLNESS: Ms. 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 Eber Muniz from [place], and all her doctors are from [place]. She has been visiting her brother in [place]. She suddenly developed left-sided chest pain while she was sitting around 2 p.m. which was sharp in nature, nonradiating, not associated with any dizziness, diaphoresis, nausea, vomiting, or shortness of breath. She immediately took sublingual nitroglycerine with which she felt better within 2-3 minutes and later about an hour after, the patient developed similar chest pain and took again nitroglycerine and her symptoms got better. Her symptoms are similar to prior chest pains, and she came into the emergency room for further evaluation. When I examined the patient, she denied any headache or dizziness. Denied any chest pain, shortness of breath, or wheezing. Denied any nausea, vomiting, abdominal pain, diarrhea, or constipation. Denied any urinary complaints. Denied any leg pains or leg cramps. Denied any other neurologic symptoms. PAST MEDICAL HISTORY: As described, asthma, coronary artery disease, status post stent placement, status post cardiac catheterization, hypertension, hyperlipidemia, congenital kidney disease, status post multiple renal transplants, pseudotumor cerebri, partially blind. PAST SURGICAL HISTORY: Underwent stent placement x2 in 2011, status post cardiac catheterization about two years ago. Last kidney transplant was in 2007, received four transplants, first one was when she was 12 years old. Underwent bladder reconstructive surgery and right hip rotation surgery; bilateral eye surgeries and laser surgery for glaucoma. She has history of intracranial hemorrhage without any residual deficits. FAMILY HISTORY: Diabetes, hypertension, hyperlipidemia, and asthma in mother; brother underwent kidney transplant. She has two sisters and six brothers. She is the youngest one of all. PERSONAL HISTORY: She is . Not having any children. SOCIAL HISTORY: Denies smoking, alcohol, or drug abuse. ALLERGIES: SHE IS ALLERGIC TO VANCOMYCIN, DEVELOPS RASH. MEDICATIONS: Her home medications include Prograf 2 mg p.o. b.i.d., Singulair 10 mg daily, Lipitor 40 mg daily, sodium bicarbonate 2 tablets p.o. t.i.d., prednisone 5 mg daily, acetazolamide 250 mg p.o. b.i.d., Cellcept 500 mg p.o. b.i.d., metoprolol 100 mg p.o. daily, Imdur 30 mg daily, Pepcid 20 mg daily, Plavix 75 mg daily, aspirin 81 mg daily, Spiriva one inhalation daily. REVIEW OF SYSTEMS: As described in the history of present illness. All other systems reviewed and were found to be negative. PHYSICAL EXAMINATION: GENERAL: A young female, lying in bed, in no acute distress. VITAL SIGNS: Blood pressure 107/64, pulse 78, respirations 20, temperature 97.8 degree Fahrenheit, O2 saturations 97% on room air. HEENT: Pupils equal, round, and reacting to light and accommodation. Extraocular muscles intact. No icterus. No pallor. No oral thrush. No pharyngeal congestion. NECK: Supple. No JVD. LUNGS: Bilateral vesicular breath sounds. No wheezing. No rhonchi. CVS: S1, S2 present, regular. ABDOMEN: Soft. Nontender. Bowel sounds present. No guarding. No rigidity. No rebound tenderness noted. DIRECTOR CUSTOMER: Alert, awake, and oriented x3. No focal deficits noted. EXTREMITIES: No edema. Palpable peripheral pulses. LABORATORY DATA: Labs are done from emergency room: WBC 9.2, hemoglobin 10.9, hematocrit 31.3, platelets 204. Sodium 143, potassium 4.1, chloride 110, bicarb 20, BUN 27, creatinine 1, glucose 149, calcium 9.4, total bilirubin 0.5, AST 27, ALT 34, alkaline phosphatase 87. Cardiac enzymes x2 negative. Total protein 6.5, albumin 3.9. UA: Specific gravity 1.014, pH 7, blood 3+, leukocyte esterase 3+, wbc 39, rbc 398. Beta hCG negative. Chest x-ray: Hyperinflation, hilar-infrahilar patchy opacity, may reflect pneumonia or atelectasis, borderline cardiomegaly. EKG: As per ED, no acute ST-T changes noted. ASSESSMENT: A young female with past medical history of congenital kidney disease, status post multiple kidney transplants. The last transplant was in 2007, received four times. First one was when she was 12 years old, history of asthma, pseudotumor cerebri, history of intracranial hemorrhage, partially blind, coronary artery disease, status post stent placement, hypertension, hyperlipidemia, status post cardiac catheterization about two years ago, history of bladder reconstructive surgery, admitted for sudden onset of chest pain, without any other associated symptoms. In the Emergency Department, the patient is found to be having elevated BUN and slightly above normal creatinine from her baseline, and hematuria. The patient is being admitted for further management and evaluation. 1. Chest pain in the patient with multiple risk factors, rule out acute coronary syndrome. 2. Elevated BUN and creatinine. 3. Microscopic hematuria, rule out urinary tract infection. 4. History of hypertension. 5. History of hyperlipidemia. 6. History of coronary artery disease, status post stent placement. 7. History of chronic heart failure. 8. History of intracranial hemorrhage. 9. History of pseudotumor cerebri. 10. History of asthma. 11. History of renal transplant multiple times. 12. Partially blind. PLAN: The patient is being admitted to telemetry. We will do serial cardiac enzymes, serial EKGs. We will check echocardiograms. Continue with her cardiac medications from home, Lipitor 40 mg daily, aspirin 81 mg daily, Plavix 75 mg daily. Continue with Imdur 30 mg p.o. daily, metoprolol 100 mg daily. Continue with Singulair and Spiriva inhalation. Her asthma is stable. Continue with immunosuppressant medications which include Prograf 2 mg daily, Cellcept 500 mg p.o. b.i.d., and prednisone 5 mg daily. We will continue with Pepcid for GI prophylaxis. We will give Venodyne for DVT prophylaxis. We will obtain Cardiology evaluation. We will continue with other home medications. We will add further recommendations as her clinical course progresses. Vania Sampson MD
[2018-08-30] MEDS ORDERED: Enoxaparin 40 mg Syringe SC SCH (10:00)
[2018-08-30] MEDS ORDERED: Metoprolol Succinate 50 mg XL Tab PO SCH (10:00)
--- NOTE | 2018-08-30 10:21 | CP.PCM.PN ---
Subjective - Date & Time of Evaluation Date of Evaluation: 08/30/18 Time of Evaluation: 10:21 - Subjective Subjective: Progress note dictated # [id number] Objective - Vital Signs/Intake and Output Vital Signs (last 24 hours): Temp Pulse Resp BP Pulse Ox 97.8 F 77 20 109/66 98 08/30/18 08:10 08/30/18 08:10 08/30/18 08:10 08/30/18 08:10 08/30/18 08:10 Intake and Output: 08/30/18 08/30/18 06:59 18:59 Intake Total 800 Balance 800 - Medications Medications: Current Medications Acetazolamide (Diamox 250 Mg Tab) 250 mg PO BID [facility] Aspirin (Ecotrin) 81 mg PO DAILY [facility] Clopidogrel Bisulfate (Plavix) 75 mg PO DAILY [facility] Enoxaparin Sodium (Lovenox) 40 mg SC DAILY [facility] Famotidine (Pepcid) 20 mg PO DAILY [facility] Sodium Chloride (Sodium Chloride 0.45%) 1,000 mls @ 75 mls/hr IV .[id number] [facility] Last Admin: 08/30/18 00:21 Dose: 75 mls/hr Isosorbide Mononitrate (Imdur Er) 30 mg PO DAILY [facility] Metoprolol Succinate (Toprol Xl) 100 mg PO DAILY [facility] Montelukast Sodium (Singulair) 10 mg PO DAILY [facility] Mycophenolate Mofetil (Cellcept) 500 mg PO BID [facility] Last Admin: 08/29/18 21:38 Dose: 500 mg Prednisone (Prednisone Tab) 5 mg PO DAILY [facility] Rosuvastatin Calcium (Crestor) 20 mg PO HS [facility] Last Admin: 08/29/18 21:38 Dose: 20 mg Sodium Bicarbonate (Sodium Bicarbonate Tab) 1,300 mg PO TID [facility] Tacrolimus (Prograf Cap) 2 mg PO BID [facility] Last Admin: 08/29/18 21:38 Dose: 2 mg Tiotropium [place] (Spiriva) 18 mcg INH RQ24 [facility] - Labs Labs: 08/30/18 07:37 08/30/18 07:37
--- NOTE | 2018-08-30 12:35 | CT ---
Date of service: 08/30/2018 CT chest without IV contrast Indication: r/o infiltrate Technique: Contiguous axial images were obtained through the chest without intravenous contrast enhancement. Sagittal and coronal reconstructions were generated and reviewed. This CT exam was performed using 1 or more of the following dose reduction techniques: Automated exposure control, adjustment of the MAA and/or kV according to patient size, and/or use of iterative reconstruction technique. Radiation dose (DLP): 391.59 MGy-cm. Comparison: Chest x-ray performed 08/29/18 Findings: Visualized portions of the inferior thyroid gland appear unremarkable. The unenhanced mediastinal and hilar vascular structures appear grossly unremarkable. The heart appears within normal limits of size. Apparent coronary artery stent. Minimal atherosclerotic calcifications of the thoracic aorta present. Hyperinflation may be seen in the setting of COPD. Mild bilateral linear atelectasis. No focal consolidation. No pleural effusion. No pneumothorax. Calcifications lateral right mid lung zone. Limited visualization of the noncontrast upper abdomen: Cholecystectomy clips. Scoliosis. Multilevel degenerative changes of the spine. Osseous demineralization. Osseous sclerosis throughout raises concern for renal osteodystrophy/metabolic disorders. Impression: Hyperinflation may be seen in the setting of COPD. Mild bilateral linear atelectasis. Osseous sclerosis raises concern for renal osteodystrophy/metabolic disorders.
--- NOTE | 2018-08-30 12:52 | CP.PCM.CON ---
Addendum entered and electronically signed by Bautista Damon MD 09/01/18 11:25: Original Note: <Marco Neff - Last Filed: 08/30/18 21:01> History of Present Illness - History of Present Illness History of Present Illness: Marco Neff, PGY-[address] Damon CC: Chest Pain HPI: Ms. Staley is a 48 year old pleasant female with PMHx of catheterization (2 years ago), abnormal stress test one year ago, stents x2 (2011), and hypertension presents to the ED for evaluation of chest pain. Patient states that although occasionally patient has chest pains, the pain she experienced yesterday was out of proportion to her usual symptoms, which prompted her to visit the hospital. Patient states that aaround 2 pm patient was at home and experienced a sharp, left sided and substernal chest pain for a few minutes. Patient reports relief with nitroglycerin. Subsequently around 3:30 pm, patient had a recurrence of intense, sharp chest pain that took he breath away and was again relieved by nitroglycerin and prompted patient to come in to hospital for evaluation. Denies radiation, N/V, diaphoresis, fever, cough but was associated with full body weakness and palpitations. Patient states that for months she experiences lightheaded episodes where she must hold on if she is standing up in order to avoid falling. Patient also reports a few weeks history of only being able to walk one and a half blocks before becoming dyspneic. Patient reports compliance with all medications, including immunosuppressants. Past Patient History - Past Medical History & Family History Past Medical History?: Yes - Past Social History Smoking Status: Never Smoked - CARDIAC Hx Congestive Heart Failure: Yes Hx Hypercholesterolemia: Yes Hx Hypertension: Yes - PULMONARY Hx Asthma: Yes - NEUROLOGICAL Hx Neurological Disorder: No - HEENT Hx HEENT Problems: Yes Hx Blind: Yes (partial) Hx Glaucoma: Yes Other/Comment: wears glasses,cerebral pseudo tumor - RENAL Hx Chronic Kidney Disease: Yes - ENDOCRINE/METABOLIC Hx Endocrine Disorders: Yes Other/Comment: parathyroidectomy - HEMATOLOGICAL/ONCOLOGICAL Hx Blood Disorders: No - INTEGUMENTARY Hx Dermatological Problems: No - MUSCULOSKELETAL/RHEUMATOLOGICAL Hx Musculoskeletal Disorders: No Hx Falls: No - GASTROINTESTINAL Hx Gastrointestinal Disorders: No - GENITOURINARY/GYNECOLOGICAL Hx Genitourinary Disorders: Yes Hx Urinary Tract Infection: Yes (chronic) - PSYCHIATRIC Hx Substance Use: No - SURGICAL HISTORY Hx Coronary Stent: Yes (x2) - ANESTHESIA Hx Anesthesia: Yes Hx Anesthesia Reactions: No Hx Malignant Hyperthermia: No Meds Allergies/Adverse Reactions: Allergies Allergy/AdvReac Type Severity Reaction Status Date / Time vancomycin Allergy Intermediate RASH Verified 08/29/18 17:00 - Medications Medications: Current Medications Acetazolamide (Diamox 250 Mg Tab) 250 mg PO BID [facility] Last Admin: 08/30/18 10:39 Dose: 250 mg Aspirin (Ecotrin) 81 mg PO DAILY [facility] Last Admin: 08/30/18 10:37 Dose: 81 mg Clopidogrel Bisulfate (Plavix) 75 mg PO DAILY [facility] Last Admin: 08/30/18 10:37 Dose: 75 mg Enoxaparin Sodium (Lovenox) 40 mg SC DAILY [facility] Last Admin: 08/30/18 10:39 Dose: Not Given Famotidine (Pepcid) 20 mg PO DAILY [facility] Last Admin: 08/30/18 10:38 Dose: 20 mg Sodium Chloride (Sodium Chloride 0.45%) 1,000 mls @ 75 mls/hr IV .[id number] [facility] Last Admin: 08/30/18 00:21 Dose: 75 mls/hr Magnesium Sulfate/Dextrose (Magnesium Sulfate 1 Gm/100 Ml D5w) 1 gm in 100 mls @ 300 mls/hr IVPB Q30M [facility] Stop: 08/30/18 13:34 Isosorbide Mononitrate (Imdur Er) 30 mg PO DAILY [facility] Last Admin: 08/30/18 10:38 Dose: 30 mg Metoprolol Succinate (Toprol Xl) 100 mg PO DAILY [facility] Last Admin: 08/30/18 10:43 Dose: 100 mg Montelukast Sodium (Singulair) 10 mg PO DAILY [facility] Last Admin: 08/30/18 10:37 Dose: 10 mg Mycophenolate Mofetil (Cellcept) 500 mg PO BID [facility] Last Admin: 08/30/18 10:39 Dose: 500 mg Prednisone (Prednisone Tab) 5 mg PO DAILY [facility] Last Admin: 08/30/18 10:38 Dose: 5 mg Rosuvastatin Calcium (Crestor) 20 mg PO HS [facility] Last Admin: 08/29/18 21:38 Dose: 20 mg Sodium Bicarbonate (Sodium Bicarbonate Tab) 1,300 mg PO TID [facility] Last Admin: 08/30/18 10:36 Dose: 1,300 mg Tacrolimus (Prograf Cap) 1 mg PO QPM [facility] Tacrolimus (Prograf Cap) 2 mg PO DAILY [facility] Tiotropium [place] (Spiriva) 18 mcg INH RQ24 [facility] Last Admin: 08/30/18 08:00 Dose: Not Given Physical Exam - Constitutional Appears: Well, Non-toxic, No Acute Distress - Head Exam Head Exam: ATRAUMATIC, NORMAL INSPECTION, NORMOCEPHALIC - Eye Exam Eye Exam: EOMI. absent: Normal appearance Pupil Exam: PERRL - ENT Exam ENT Exam: Mucous Membranes Moist - Neck Exam Neck exam: Positive for: Normal Inspection - Respiratory Exam Respiratory Exam: Clear to Auscultation Bilateral, NORMAL BREATHING PATTERN. absent: Chest Wall Tenderness, Prolonged Expiratory Phase, Rales, Wheezes, Respiratory Distress, Stridor - Cardiovascular Exam Cardiovascular Exam: RRR, +S1, +S2. absent: Bradycardia, Tachycardia - GI/Abdominal Exam GI & Abdominal Exam: Normal Bowel Sounds, Soft. absent: Tenderness Additional comments: L flank/inguinal scar from kidney transplant - Extremities Exam Extremities exam: Positive for: normal inspection. Negative for: calf tenderness - Back Exam Back exam: absent: CVA tenderness (L), CVA tenderness (R) - Neurological Exam Neurological exam: Alert, Normal Gait, Oriented x3 - Psychiatric Exam Psychiatric exam: Normal Affect, Normal Mood - Skin Skin Exam: Dry, Intact, Normal Color, Warm Results - Vital Signs Recent Vital Signs: Last Vital Signs Temp 97.8 F 08/30/18 08:10 Pulse 77 08/30/18 08:10 Resp 20 08/30/18 08:10 BP 109/66 08/30/18 08:10 Pulse Ox 98 08/30/18 08:10 - Labs Result Diagrams: 08/30/18 07:37 08/30/18 07:37 Labs: Laboratory Results - last 24 hr 08/29/18 08/29/18 08/29/18 17:19 17:19 21:18 WBC 9.2 RBC 3.63 L Hgb 10.9 L Hct 31.3 L MCV 86.3 D MCH 30.0 MCHC 34.8 RDW 14.2 Plt Count 204 MPV 9.1 Neut % (Auto) 82.1 H Lymph % (Auto) 12.7 L [place] % (Auto) 4.3 Eos % (Auto) 0.5 Baso % (Auto) 0.4 Neut # (Auto) 7.6 H Lymph # (Auto) 1.2 [place] # (Auto) 0.4 Eos # (Auto) 0.0 Baso # (Auto) 0.0 Sodium 143 Potassium 4.1 Chloride 110 H Carbon Dioxide 20 L Anion Gap 17 BUN 27 H Creatinine 1.0 Est GFR ( Amer) > 60 Est GFR (Non-Af Amer) 60 Random Glucose 149 H Calcium 9.4 Phosphorus Magnesium Total Bilirubin 0.5 AST 27 ALT 34 Alkaline Phosphatase 87 Troponin I < 0.0120 < 0.0120 Total Protein 6.5 Albumin 3.9 Globulin 2.6 Albumin/Globulin Ratio 1.5 Triglycerides Cholesterol LDL Cholesterol Direct HDL Cholesterol TSH 3rd Generation Urine Color Urine Clarity Urine pH Ur Specific [place] Urine Protein Urine Glucose (UA) Urine Ketones Urine Blood Urine Nitrate Urine Bilirubin Urine Urobilinogen Ur Leukocyte Esterase Urine WBC (Auto) Urine RBC (Auto) Ur Squamous Epith Cells Urine Bacteria Urine HCG, Qual 08/29/18 08/29/18 08/30/18 23:02 23:02 07:37 WBC 6.9 RBC 3.55 L Hgb 10.7 L Hct 31.2 L MCV 87.8 MCH 30.1 MCHC 34.2 RDW 14.2 Plt Count 179 MPV 9.1 Neut % (Auto) 55.0 Lymph % (Auto) 31.4 [place] % (Auto) 9.8 Eos % (Auto) 3.3 Baso % (Auto) 0.5 Neut # (Auto) 3.8 Lymph # (Auto) 2.2 [place] # (Auto) 0.7 Eos # (Auto) 0.2 Baso # (Auto) 0.0 Sodium Potassium Chloride Carbon Dioxide Anion Gap BUN Creatinine Est GFR ( Amer) Est GFR (Non-Af Amer) Random Glucose Calcium Phosphorus Magnesium Total Bilirubin AST ALT Alkaline Phosphatase Troponin I Total Protein Albumin Globulin Albumin/Globulin Ratio Triglycerides Cholesterol LDL Cholesterol Direct HDL Cholesterol TSH 3rd Generation Urine Color Yellow Urine Clarity Hazy Urine pH 7.0 Ur Specific [place] 1.014 Urine Protein 1+ H Urine Glucose (UA) Normal Urine Ketones Negative Urine Blood 3+ H Urine Nitrate Negative Urine Bilirubin Negative Urine Urobilinogen Normal Ur Leukocyte Esterase 3+ H Urine WBC (Auto) 39 H Urine RBC (Auto) 398 H Ur Squamous Epith Cells 4 Urine Bacteria Rare Urine HCG, Qual Negative 08/30/18 07:37 WBC RBC Hgb Hct MCV MCH MCHC RDW Plt Count MPV Neut % (Auto) Lymph % (Auto) [place] % (Auto) Eos % (Auto) Baso % (Auto) Neut # (Auto) Lymph # (Auto) [place] # (Auto) Eos # (Auto) Baso # (Auto) Sodium 146 Potassium 4.1 Chloride 113 H Carbon Dioxide 22 Anion Gap 15 BUN 26 H Creatinine 1.0 Est GFR ( Amer) > 60 Est GFR (Non-Af Amer) 60 Random Glucose 84 Calcium 9.1 Phosphorus 4.0 Magnesium 1.5 L Total Bilirubin 0.4 AST 27 ALT 28 Alkaline Phosphatase 82 Troponin I < 0.0120 Total Protein 6.3 Albumin 3.8 Globulin 2.5 Albumin/Globulin Ratio 1.5 Triglycerides 226 H D Cholesterol 124 LDL Cholesterol Direct 62 HDL Cholesterol 43 TSH 3rd Generation 1.93 Urine Color Urine Clarity Urine pH Ur Specific [place] Urine Protein Urine Glucose (UA) Urine Ketones Urine Blood Urine Nitrate Urine Bilirubin Urine Urobilinogen Ur Leukocyte Esterase Urine WBC (Auto) Urine RBC (Auto) Ur Squamous Epith Cells Urine Bacteria Urine HCG, Qual Assessment & Plan - Assessment and Plan (Free Text) Assessment: 48 F with PMHx of multiple renal transplants, CAD with 2 stents, cardiac cath 2 years ago and an abnormal stress test last year who presents with complaints of chest pain. One year ago, decision was made not to pursue follow up cardiac cath to abnormal stress test due to likely effects on renal function. CP r/o ACS, hx CAD f/u Echo results Trop stable x3 at 0.012, same result as back in 2013 Continue dual antiplatelet therapy for tomorrow, statin, Imdur Hold Lovenox for tomorrow Cardiac cath planned for tomorrow afternoon due to sustained chest pain, made NPO after light breakfast HTN Controlled c/w home beta nohemi with holding parameters Patient seen, case reviewed and plan approved by Dr. Nelson Neff, PGY-1 <Bautista Damon - Last Filed: 08/31/18 16:11> Meds - Medications Medications: Current Medications Acetazolamide (Diamox 250 Mg Tab) 250 mg PO BID [facility] Last Admin: 08/31/18 09:09 Dose: 250 mg Aspirin (Ecotrin) 81 mg PO DAILY [facility] Last Admin: 08/31/18 09:07 Dose: 81 mg Clopidogrel Bisulfate (Plavix) 75 mg PO DAILY [facility] Last Admin: 08/31/18 09:07 Dose: 75 mg Enoxaparin Sodium (Lovenox) 40 mg SC DAILY [facility] Last Admin: 08/30/18 10:39 Dose: Not Given Famotidine (Pepcid) 20 mg PO DAILY [facility] Last Admin: 08/31/18 09:07 Dose: 20 mg Sodium Chloride (Sodium Chloride 0.45%) 1,000 mls @ 75 mls/hr IV .[id number] [facility] Last Admin: 08/31/18 06:05 Dose: 75 mls/hr Isosorbide Mononitrate (Imdur Er) 30 mg PO DAILY [facility] Last Admin: 08/31/18 09:07 Dose: 30 mg Metoprolol Succinate (Toprol Xl) 100 mg PO DAILY [facility] Last Admin: 08/31/18 09:07 Dose: 100 mg Montelukast Sodium (Singulair) 10 mg PO DAILY [facility] Last Admin: 08/31/18 09:07 Dose: 10 mg Mycophenolate Mofetil (Cellcept) 500 mg PO BID [facility] Last Admin: 08/31/18 09:09 Dose: 500 mg Prednisone (Prednisone Tab) 5 mg PO DAILY [facility] Last Admin: 08/31/18 09:07 Dose: 5 mg Rosuvastatin Calcium (Crestor) 20 mg PO HS [facility] Last Admin: 08/30/18 21:20 Dose: 20 mg Sodium Bicarbonate (Sodium Bicarbonate Tab) 1,300 mg PO TID [facility] Last Admin: 08/31/18 14:45 Dose: Not Given Tacrolimus (Prograf Cap) 1 mg PO QPM [facility] Last Admin: 08/30/18 17:30 Dose: 1 mg Tacrolimus (Prograf Cap) 2 mg PO DAILY [facility] Last Admin: 08/31/18 09:08 Dose: 2 mg Tiotropium [place] (Spiriva) 18 mcg INH RQ24 [facility] Last Admin: 08/31/18 11:00 Dose: Not Given Results - Vital Signs Recent Vital Signs: Last Vital Signs Temp 98 F 08/31/18 08:00 Pulse 79 08/31/18 12:00 Resp 20 08/31/18 08:00 BP 114/70 08/31/18 08:00 Pulse Ox 98 08/31/18 08:00 - Labs Result Diagrams: 08/31/18 08:47 08/31/18 08:47 Labs: Laboratory Results - last 24 hr 08/31/18 08/31/18 08/31/18 08:15 08:47 08:47 WBC 7.7 RBC 3.96 Hgb 11.9 Hct 34.3 MCV 86.6 MCH 29.9 MCHC 34.5 RDW 14.2 Plt Count 191 MPV 9.2 Neut % (Auto) 63.4 Lymph % (Auto) 25.1 [place] % (Auto) 8.1 Eos % (Auto) 2.9 Baso % (Auto) 0.5 Neut # (Auto) 4.9 Lymph # (Auto) 1.9 [place] # (Auto) 0.6 Eos # (Auto) 0.2 Baso # (Auto) 0.0 PT 11.0 INR 1.0 APTT 31 Sodium 144 Potassium 4.1 Chloride 114 H Carbon Dioxide 18 L Anion Gap 16 BUN 21 H Creatinine 1.0 Est GFR ( Amer) > 60 Est GFR (Non-Af Amer) 60 Random Glucose 89 Calcium 9.3 Total Bilirubin 0.6 AST 18 ALT 31 Alkaline Phosphatase 82 Total Protein 6.9 Albumin 4.0 Globulin 2.9 Albumin/Globulin Ratio 1.4 Beta HCG, Quant 08/31/18 08/31/18 08:47 12:03 WBC RBC Hgb Hct MCV MCH MCHC RDW Plt Count MPV Neut % (Auto) Lymph % (Auto) [place] % (Auto) Eos % (Auto) Baso % (Auto) Neut # (Auto) Lymph # (Auto) [place] # (Auto) Eos # (Auto) Baso # (Auto) PT INR APTT Sodium Potassium Chloride Carbon Dioxide Anion Gap BUN Creatinine Est GFR ( Amer) Est GFR (Non-Af Amer) Random Glucose Calcium Total Bilirubin AST ALT Alkaline Phosphatase Total Protein Albumin Globulin Albumin/Globulin Ratio Beta HCG, Quant 7.26 6.13 Attending/Attestation - Attestation I have personally seen and examined this patient.: Yes I have fully participated in the care of the patient.: Yes I have reviewed all pertinent clinical information: Yes Notes (Text): 08/31/18 16:10 abnormal stress test back in 10/24 chest pains with hx of stents will need further evaluation with cardiac catheterization GDMT for CAD
[2018-08-30] MEDS: Magnesium Sulfate 1 gm in D5W 1 GM/100 ML BAG IVPB SCH ×2 (13:43→13:44)
--- NOTE | 2018-08-30 15:34 | CP.PCM.CON ---
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 Maintain hemodynamics stable. Avoid hypotension. Monitor Input/Output, daily weights and renal function with basic metabolic panel pt undergoing cardiac work up hematuria will need further work up. if pt planned for d/c home soon, then recommend outpt early f/up with her transplant center within next few days continue with sodium bicarb supplemented magnesium Dose meds/antibiotics for GFR >60.Avoid nephrotoxins/NSAIDs Glycemic control Further work up/management as per primary team Thanks for allowing me to participate in care of your patient. Will follow patient with you. Please call if any Qs. 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 renal consult for transplant management Denies OTC/herbal meds or NSAIDs No recent iodinated contrast exposure. No obvious episodes of low BP. she reports urine reddish in color for last 2 days. no associated chills or fever or dysuria. ROS: Cardiovascular: No chest pain at present Pulmonary: No shortness of breath Gastrointestinal: denies abdominal pain No nausea. No vomiting. Genitourinary: No pain while urinating. c/o blood in urine. All other negative except as mentioned in HPI Physical Examination: General Appearance: Comfortable, in no acute respiratory distress, co-operative . Vitals reviewed and noted as below Head; Atraumatic, normocephalic ENT: no ulcers no thrush. Tongue is midline. Oropharynx: no rash or ulcers. EYES: Pupils are equal, round and reactive to light accommodation. Eye muscles and extraocular movement intact. Sclera is anicteric. Neck; supple no lymphadenopathy, no thyromegaly or bruit Lungs: Normal respiratory rate/effort. Breath sounds bilateral equal and clear Heart: Normal rate. s1s2 normal. No rub or gallop. Extremities: no edema. No varicose veins Neurological: Patient is alert, awake and oriented to person, place and time. No focal deficit. Strength bilateral appropriate and equal Skin: Warm and dry. Normal turgor. No rash. Palpitation: Normal elasticity for age Abdomen: Abdomen is soft. Bowel sounds +. There is no abdominal tenderness, no guarding/rigidity no organomegaly, has mild discomfort over LLQ allograft Psych: normal insight and normal affect/mood MSK: no joint tenderness or swelling. Digits and nails normal, no deformity : kidney or bladder not palpable Labs/imaging reviewed. Past medical history, past surgical history, family history, social history, allergy reviewed and noted as below Family hx: no hx of CKD. Rest non-contributory UA 3+ blood renal sono 2017: left side hydronephrosis Past Patient History - Past Medical History & Family History Past Medical History?: Yes - Past Social History Smoking Status: Never Smoked - CARDIAC Hx Congestive Heart Failure: Yes Hx Hypercholesterolemia: Yes Hx Hypertension: Yes - PULMONARY Hx Asthma: Yes - NEUROLOGICAL Hx Neurological Disorder: No - HEENT Hx HEENT Problems: Yes Hx Blind: Yes (partial) Hx Glaucoma: Yes Other/Comment: wears glasses,cerebral pseudo tumor - RENAL Hx Chronic Kidney Disease: Yes - ENDOCRINE/METABOLIC Hx Endocrine Disorders: Yes Other/Comment: parathyroidectomy - HEMATOLOGICAL/ONCOLOGICAL Hx Blood Disorders: No - INTEGUMENTARY Hx Dermatological Problems: No - MUSCULOSKELETAL/RHEUMATOLOGICAL Hx Musculoskeletal Disorders: No Hx Falls: No - GASTROINTESTINAL Hx Gastrointestinal Disorders: No - GENITOURINARY/GYNECOLOGICAL Hx Genitourinary Disorders: Yes Hx Urinary Tract Infection: Yes (chronic) - PSYCHIATRIC Hx Substance Use: No - SURGICAL HISTORY Hx Coronary Stent: Yes (x2) - ANESTHESIA Hx Anesthesia: Yes Hx Anesthesia Reactions: No Hx Malignant Hyperthermia: No Meds Allergies/Adverse Reactions: Allergies Allergy/AdvReac Type Severity Reaction Status Date / Time vancomycin Allergy Intermediate RASH Verified 08/29/18 17:00 - Medications Medications: Current Medications Acetazolamide (Diamox 250 Mg Tab) 250 mg PO BID [facility] Last Admin: 08/30/18 10:39 Dose: 250 mg Aspirin (Ecotrin) 81 mg PO DAILY [facility] Last Admin: 08/30/18 10:37 Dose: 81 mg Clopidogrel Bisulfate (Plavix) 75 mg PO DAILY [facility] Last Admin: 08/30/18 10:37 Dose: 75 mg Enoxaparin Sodium (Lovenox) 40 mg SC DAILY [facility] Last Admin: 08/30/18 10:39 Dose: Not Given Famotidine (Pepcid) 20 mg PO DAILY [facility] Last Admin: 08/30/18 10:38 Dose: 20 mg Sodium Chloride (Sodium Chloride 0.45%) 1,000 mls @ 75 mls/hr IV .[id number] [facility] Last Admin: 08/30/18 13:45 Dose: Not Given Isosorbide Mononitrate (Imdur Er) 30 mg PO DAILY [facility] Last Admin: 08/30/18 10:38 Dose: 30 mg Metoprolol Succinate (Toprol Xl) 100 mg PO DAILY [facility] Montelukast Sodium (Singulair) 10 mg PO DAILY [facility] Last Admin: 08/30/18 10:37 Dose: 10 mg Mycophenolate Mofetil (Cellcept) 500 mg PO BID [facility] Last Admin: 08/30/18 10:39 Dose: 500 mg Prednisone (Prednisone Tab) 5 mg PO DAILY [facility] Last Admin: 08/30/18 10:38 Dose: 5 mg Rosuvastatin Calcium (Crestor) 20 mg PO HS [facility] Last Admin: 08/29/18 21:38 Dose: 20 mg Sodium Bicarbonate (Sodium Bicarbonate Tab) 1,300 mg PO TID [facility] Last Admin: 08/30/18 13:43 Dose: 1,300 mg Tacrolimus (Prograf Cap) 1 mg PO QPM [facility] Tacrolimus (Prograf Cap) 2 mg PO DAILY [facility] Tiotropium [place] (Spiriva) 18 mcg INH RQ24 [facility] Last Admin: 08/30/18 08:00 Dose: Not Given Results - Vital Signs Recent Vital Signs: Last Vital Signs Temp 97.8 F 08/30/18 08:10 Pulse 77 08/30/18 08:10 Resp 20 08/30/18 08:10 BP 109/66 08/30/18 08:10 Pulse Ox 98 08/30/18 08:10 - Labs Result Diagrams: 08/30/18 07:37 08/30/18 07:37 Labs: Laboratory Results - last 24 hr 08/29/18 08/29/18 08/29/18 17:19 17:19 21:18 WBC 9.2 RBC 3.63 L Hgb 10.9 L Hct 31.3 L MCV 86.3 D MCH 30.0 MCHC 34.8 RDW 14.2 Plt Count 204 MPV 9.1 Neut % (Auto) 82.1 H Lymph % (Auto) 12.7 L [place] % (Auto) 4.3 Eos % (Auto) 0.5 Baso % (Auto) 0.4 Neut # (Auto) 7.6 H Lymph # (Auto) 1.2 [place] # (Auto) 0.4 Eos # (Auto) 0.0 Baso # (Auto) 0.0 Sodium 143 Potassium 4.1 Chloride 110 H Carbon Dioxide 20 L Anion Gap 17 BUN 27 H Creatinine 1.0 Est GFR ( Amer) > 60 Est GFR (Non-Af Amer) 60 Random Glucose 149 H Calcium 9.4 Phosphorus Magnesium Total Bilirubin 0.5 AST 27 ALT 34 Alkaline Phosphatase 87 Troponin I < 0.0120 < 0.0120 Total Protein 6.5 Albumin 3.9 Globulin 2.6 Albumin/Globulin Ratio 1.5 Triglycerides Cholesterol LDL Cholesterol Direct HDL Cholesterol TSH 3rd Generation Urine Color Urine Clarity Urine pH Ur Specific [place] Urine Protein Urine Glucose (UA) Urine Ketones Urine Blood Urine Nitrate Urine Bilirubin Urine Urobilinogen Ur Leukocyte Esterase Urine WBC (Auto) Urine RBC (Auto) Ur Squamous Epith Cells Urine Bacteria Urine HCG, Qual 08/29/18 08/29/18 08/30/18 23:02 23:02 07:37 WBC 6.9 RBC 3.55 L Hgb 10.7 L Hct 31.2 L MCV 87.8 MCH 30.1 MCHC 34.2 RDW 14.2 Plt Count 179 MPV 9.1 Neut % (Auto) 55.0 Lymph % (Auto) 31.4 [place] % (Auto) 9.8 Eos % (Auto) 3.3 Baso % (Auto) 0.5 Neut # (Auto) 3.8 Lymph # (Auto) 2.2 [place] # (Auto) 0.7 Eos # (Auto) 0.2 Baso # (Auto) 0.0 Sodium Potassium Chloride Carbon Dioxide Anion Gap BUN Creatinine Est GFR ( Amer) Est GFR (Non-Af Amer) Random Glucose Calcium Phosphorus Magnesium Total Bilirubin AST ALT Alkaline Phosphatase Troponin I Total Protein Albumin Globulin Albumin/Globulin Ratio Triglycerides Cholesterol LDL Cholesterol Direct HDL Cholesterol TSH 3rd Generation Urine Color Yellow Urine Clarity Hazy Urine pH 7.0 Ur Specific [place] 1.014 Urine Protein 1+ H Urine Glucose (UA) Normal Urine Ketones Negative Urine Blood 3+ H Urine Nitrate Negative Urine Bilirubin Negative Urine Urobilinogen Normal Ur Leukocyte Esterase 3+ H Urine WBC (Auto) 39 H Urine RBC (Auto) 398 H Ur Squamous Epith Cells 4 Urine Bacteria Rare Urine HCG, Qual Negative 08/30/18 07:37 WBC RBC Hgb Hct MCV MCH MCHC RDW Plt Count MPV Neut % (Auto) Lymph % (Auto) [place] % (Auto) Eos % (Auto) Baso % (Auto) Neut # (Auto) Lymph # (Auto) [place] # (Auto) Eos # (Auto) Baso # (Auto) Sodium 146 Potassium 4.1 Chloride 113 H Carbon Dioxide 22 Anion Gap 15 BUN 26 H Creatinine 1.0 Est GFR ( Amer) > 60 Est GFR (Non-Af Amer) 60 Random Glucose 84 Calcium 9.1 Phosphorus 4.0 Magnesium 1.5 L Total Bilirubin 0.4 AST 27 ALT 28 Alkaline Phosphatase 82 Troponin I < 0.0120 Total Protein 6.3 Albumin 3.8 Globulin 2.5 Albumin/Globulin Ratio 1.5 Triglycerides 226 H D Cholesterol 124 LDL Cholesterol Direct 62 HDL Cholesterol 43 TSH 3rd Generation 1.93 Urine Color Urine Clarity Urine pH Ur Specific [place] Urine Protein Urine Glucose (UA) Urine Ketones Urine Blood Urine Nitrate Urine Bilirubin Urine Urobilinogen Ur Leukocyte Esterase Urine WBC (Auto) Urine RBC (Auto) Ur Squamous Epith Cells Urine Bacteria Urine HCG, Qual
--- NOTE | 2018-08-30 20:20 | CARD ---
APPROVED REPORT Date of service: 08/30/2018 EKG Measurement Heart [id number] <Conclusion> Normal sinus rhythm Low voltage QRS Borderline ECG
--- NOTE | 2018-08-30 21:19 | PN ---
DATE: 08/30/2018 SUBJECTIVE: The patient was seen and examined at bedside. The patient offers no new complaints. Denies any chest pain this morning. All other systems reviewed and was found to be negative. PHYSICAL EXAMINATION: GENERAL: Middle-aged female lying in bed in no acute distress. VITAL SIGNS: Blood pressure 109/66, pulse 77, respirations 20, temperature 97.8 degrees Fahrenheit, O2 saturation 98% on room air. HEENT: Pupils equal, round and reacting to light and accommodation. Extraocular muscles intact. No icterus. No pallor. No oral thrush. No pharyngeal congestion. NECK: Supple. No JVD. LUNGS: Bilateral vesicular breath sounds. No wheezing. No rhonchi. CVS: S1 and S2 present. Regular. ABDOMEN: Soft. Nontender. Bowel sounds present. No guarding. No rigidity. No rebound tenderness noted. BUSINESS SERVICES SPECIALIST SALES: Alert, awake, oriented x3. No focal deficits noted. EXTREMITIES: No edema. Palpable peripheral pulses. MEDICATIONS: Diamox 250 mg p.o. b.i.d., Ecotrin 81 mg p.o. daily, Plavix 75 mg p.o. daily, Lovenox 40 mg subcu daily, Pepcid 20 mg daily, Imdur 30 mg p.o. daily, metoprolol 100 mg p.o. daily, Singulair 10 mg daily, CellCept 500 mg p.o. b.i.d., prednisone 5 mg p.o. daily, Crestor 20 mg p.o. at bedtime, sodium bi carbonate 1300 mg p.o. t.i.d., half normal saline 75 mL an hour, Tacrolimus 1 mg p.o. q.p.m. and 2 mg p.o. daily, Spiriva 18 mcg inhalation. LABORATORY DATA: Labs from this morning WBC 6.9, hemoglobin 10.7, hematocrit 31.2, platelets 129. Sodium 146, potassium 4.1, chloride 113, bicarbonate 22, BUN 26, creatinine 1, glucose 84, calcium 9.1, phosphorus 4, magnesium 1.5, total bilirubin 0.4, AST 27, ALT 28, alkaline phosphatase 82. Cardiac enzymes x3 negative. Triglycerides 226, cholesterol 124, LDL 62, HDL 43, TSH 1.93. UA specific gravity 1.014, pH 7, protein 1+, rbc 398, blood 3+, leukocytosis esterase 3+, wbc 39. CT chest negative for any infiltrate. ASSESSMENT AND PLAN: Middle-aged female with history of coronary artery disease, status post stent placement, hypertension, hyperlipidemia, congenital kidney disease, status post renal transplant x4, pseudotumor cerebri, partially blind, history of intracranial hemorrhage and cerebrovascular accident, status post cardiac catheterization about 2 years ago, developed chest pain 09/2017. Stress test done on 10/06/2017 consistent with ischemia in the distal left anterior descending (coronary artery) territory, normal left ventricular ejection fraction. Recommended further cardiac catheterization, but the procedure was deferred secondary to her retransplant status. The patient readmitted with chest pain. No new EKG change. Cardiac enzymes are negative. Echo was done, results pending. Renal consult and cardiology consult appreciated. For microscopic hematuria, pending urine culture results. The patient is cleared from renal standpoint, awaiting for echo report. We will follow up with cardiology and plan accordingly regarding the discharge. Continue with her current medication. Supplement magnesium. Give lactulose for constipation. Continue with DVT and GI prophylaxis. Vania Sampson MD
--- NOTE | 2018-08-30 21:29 | CARD ---
APPROVED REPORT Date of service: 08/30/2018 EXAM: Two-dimensional and M-mode echocardiogram with Doppler and color Doppler. Other Information Quality : GoodRhythm : INDICATION Chest Pain 2D DIMENSIONS IVSd0.7 (0.7-1.1cm)LVDd4.2 (3.9-5.9cm) PWd0.8 (0.7-1.1cm)LA Edraon84 (18-58mL) LVDs3.3 (2.5-4.0cm)FS (%) 22.0 % LVEF (%)50.0 (>50%)LVEF (Rose's)60.95 % M-Mode DIMENSIONS Left Atrium (MM)2.77 (2.5-4.0cm)IVSd3.28 (0.7-1.1cm) Aortic Root2.77 (2.2-3.7cm)LVDd2.83 (4.0-5.6cm) Aortic Cusp Exc.2.05 (1.5-2.0cm)PWd0.74 (0.7-1.1cm) FS (%) 20 %LVDs3.41 (2.0-3.8cm) LVEF (%)57 (>50%) Aortic Valve AI P 1/2 [id number] Mitral Valve MV E Hpuihiur40.9cm/sMV A Sfpiobfr77.0cm/sE/A ratio0.9 TDI Lateral E' Peak V6.74cm/sMedial E' Peak V7.90cm/sE/Lateral E'12.9 E/Medial E'11.0 Tricuspid Valve TR Peak Kmvykopg567pp/sTR Peak Gr.[id number] LEFT VENTRICLE The left ventricle is normal size. There is normal left ventricular wall thickness. Left ventricle systolic function is normal. The Ejection Fraction is 55-60%. There is normal LV segmental wall motion. Tissue Doppler imaging reveals abnormal left ventricular diastolic dysfunction. RIGHT VENTRICLE The right ventricle is normal size. There is normal right ventricular wall thickness. The right ventricular systolic function is normal. ATRIA The left atrium size is normal. The right atrium size is normal. The interatrial septum is intact with no evidence for an atrial septal defect. AORTIC VALVE The aortic valve is normal in structure. No aortic regurgitation is present. There is no aortic valvular stenosis. MITRAL VALVE The mitral valve is normal in structure. There is no evidence of mitral valve prolapse. There is no mitral valve stenosis. Mitral regurgitation is mild. TRICUSPID VALVE The tricuspid valve is normal in structure. There is mild tricuspid regurgitation. Right ventricular systolic pressure is estimated at less than 30 mmHg. There is no pulmonary hypertension. PULMONIC VALVE The pulmonary valve is normal in structure. There is no pulmonic valvular regurgitation. GREAT VESSELS The aortic root is normal in size. PERICARDIAL EFFUSION There is no significant pericardial effusion. <Conclusion> Left ventricle systolic function is normal. The Ejection Fraction is 55-60%. Diastolic dysfunction. No aortic regurgitation is present. Mitral regurgitation is mild. There is mild tricuspid regurgitation. There is no pulmonary hypertension. There is no pulmonic valvular regurgitation.
[2018-08-31] MEDS: Sodium Chloride 0.45% 1,000 ML IV SCH ×3 (02:25→15:45)
[2018-08-31 08:53] LABS: BASO % 0.5 % (0.0-2.0); EOS # 0.2 K/uL (0.0-0.7); EOS % 2.9 % (0.0-4.0); HEMOGLOBIN 11.9 g/dL (11.0-16.0); LYMPH # 1.9 K/uL (1.0-4.3); LYMPH % 25.1 % (20.0-40.0); MEAN CELL VOLUME 86.6 fL (81.0-99.0); MEAN CORPUSCULAR HEMOGLOBIN 29.9 pg (27.0-31.0); MEAN CORPUSCULAR HGB CONC 34.5 g/dL (33.0-37.0); MEAN PLATELET VOLUME 9.2 fL (7.2-11.7); MONO # 0.6 K/uL (0.0-0.8); MONO % 8.1 % (0.0-10.0); NEUT # 4.9 K/uL (1.8-7.0); NEUT % 63.4 % (50.0-75.0); RBC 3.96 Mil/uL (3.80-5.20); RED CELL DISTRIBUTION WIDTH 14.2 % (11.5-14.5); WHITE BLOOD COUNT 7.7 K/uL (4.8-10.8)
[2018-08-31 09:05] LABS: ALB/GLOB RATIO 1.4 (1.0-2.1); ALT/SGPT 31 U/L (9-52); AST/SGOT 18 U/L (14-36); BLOOD UREA NITROGEN 21 mg/dL (7-17); CALCIUM 9.3 mg/dl (8.6-10.4); GFR NON-AFRICAN AMERICAN 60
[2018-08-31] MEDS: Metoprolol Succinate 50 mg XL Tab PO SCH (09:07)
[2018-08-31] MEDS: Tiotropium 18 mcg Cap For Inhalation INH SCH (11:00)
--- NOTE | 2018-08-31 12:55 | CP.PCM.PN ---
Subjective - Date & Time of Evaluation Date of Evaluation: 08/31/18 Time of Evaluation: 12:54 - Subjective Subjective: Progress note dictated #[id number] Objective - Vital Signs/Intake and Output Vital Signs (last 24 hours): Temp Pulse Resp BP Pulse Ox 98 F 73 20 114/70 98 08/31/18 08:00 08/31/18 08:07 08/31/18 08:00 08/31/18 08:00 08/31/18 08:00 Intake and Output: 08/31/18 08/31/18 06:59 18:59 Intake Total 840 Balance 840 - Medications Medications: Current Medications Acetazolamide (Diamox 250 Mg Tab) 250 mg PO BID [facility] Last Admin: 08/31/18 09:09 Dose: 250 mg Aspirin (Ecotrin) 81 mg PO DAILY [facility] Last Admin: 08/31/18 09:07 Dose: 81 mg Clopidogrel Bisulfate (Plavix) 75 mg PO DAILY [facility] Last Admin: 08/31/18 09:07 Dose: 75 mg Enoxaparin Sodium (Lovenox) 40 mg SC DAILY [facility] Last Admin: 08/30/18 10:39 Dose: Not Given Famotidine (Pepcid) 20 mg PO DAILY [facility] Last Admin: 08/31/18 09:07 Dose: 20 mg Sodium Chloride (Sodium Chloride 0.45%) 1,000 mls @ 75 mls/hr IV .[id number] [facility] Last Admin: 08/31/18 06:05 Dose: 75 mls/hr Isosorbide Mononitrate (Imdur Er) 30 mg PO DAILY [facility] Last Admin: 08/31/18 09:07 Dose: 30 mg Metoprolol Succinate (Toprol Xl) 100 mg PO DAILY [facility] Last Admin: 08/31/18 09:07 Dose: 100 mg Montelukast Sodium (Singulair) 10 mg PO DAILY [facility] Last Admin: 08/31/18 09:07 Dose: 10 mg Mycophenolate Mofetil (Cellcept) 500 mg PO BID [facility] Last Admin: 08/31/18 09:09 Dose: 500 mg Prednisone (Prednisone Tab) 5 mg PO DAILY [facility] Last Admin: 08/31/18 09:07 Dose: 5 mg Rosuvastatin Calcium (Crestor) 20 mg PO HS [facility] Last Admin: 08/30/18 21:20 Dose: 20 mg Sodium Bicarbonate (Sodium Bicarbonate Tab) 1,300 mg PO TID [facility] Last Admin: 08/31/18 09:07 Dose: 1,300 mg Tacrolimus (Prograf Cap) 1 mg PO QPM [facility] Last Admin: 08/30/18 17:30 Dose: 1 mg Tacrolimus (Prograf Cap) 2 mg PO DAILY [facility] Last Admin: 08/31/18 09:08 Dose: 2 mg Tiotropium [place] (Spiriva) 18 mcg INH RQ24 [facility] Last Admin: 08/31/18 11:00 Dose: Not Given - Labs Labs: 08/31/18 08:47 08/31/18 08:47 PT 11.0 SECONDS (9.7-12.2) 08/31/18 08:15 INR 1.0 08/31/18 08:15 APTT 31 SECONDS (21-34) 08/31/18 08:15
--- NOTE | 2018-08-31 13:53 | CP.PCM.CON ---
History of Present Illness - History of Present Illness History of Present Illness: consult called for b hcg 6.pt needs tanbark laborer procedure.pt admittted for chest pain. no ob complaints pt doesnot desire preg and is not sexually active . pt periods are irrgular. we can repeat the b hcg in 48 hr and she can continue with tanbark laborer procedure Past Patient History - Past Medical History & Family History Past Medical History?: Yes - Past Social History Smoking Status: Never Smoked - CARDIAC Hx Congestive Heart Failure: Yes Hx Hypercholesterolemia: Yes Hx Hypertension: Yes - PULMONARY Hx Asthma: Yes - NEUROLOGICAL Hx Neurological Disorder: No - HEENT Hx HEENT Problems: Yes Hx Blind: Yes (partial) Hx Glaucoma: Yes Other/Comment: wears glasses,cerebral pseudo tumor - RENAL Hx Chronic Kidney Disease: Yes - ENDOCRINE/METABOLIC Hx Endocrine Disorders: Yes Other/Comment: parathyroidectomy - HEMATOLOGICAL/ONCOLOGICAL Hx Blood Disorders: No - INTEGUMENTARY Hx Dermatological Problems: No - MUSCULOSKELETAL/RHEUMATOLOGICAL Hx Musculoskeletal Disorders: No Hx Falls: No - GASTROINTESTINAL Hx Gastrointestinal Disorders: No - GENITOURINARY/GYNECOLOGICAL Hx Genitourinary Disorders: Yes Hx Urinary Tract Infection: Yes (chronic) - PSYCHIATRIC Hx Substance Use: No - SURGICAL HISTORY Hx Coronary Stent: Yes (x2) - ANESTHESIA Hx Anesthesia: Yes Hx Anesthesia Reactions: No Hx Malignant Hyperthermia: No Meds Allergies/Adverse Reactions: Allergies Allergy/AdvReac Type Severity Reaction Status Date / Time vancomycin Allergy Intermediate RASH Verified 08/29/18 17:00 - Medications Medications: Current Medications Acetazolamide (Diamox 250 Mg Tab) 250 mg PO BID [facility] 234 BEDS AT [facility] Last Admin: 08/31/18 09:09 Dose: 250 mg Aspirin (Ecotrin) 81 mg PO DAILY [facility] 234 BEDS AT [facility] Last Admin: 08/31/18 09:07 Dose: 81 mg Clopidogrel Bisulfate (Plavix) 75 mg PO DAILY [facility] 234 BEDS AT [facility] Last Admin: 08/31/18 09:07 Dose: 75 mg Enoxaparin Sodium (Lovenox) 40 mg SC DAILY [facility] 234 BEDS AT [facility] Last Admin: 08/30/18 10:39 Dose: Not Given Famotidine (Pepcid) 20 mg PO DAILY [facility] 234 BEDS AT [facility] Last Admin: 08/31/18 09:07 Dose: 20 mg Sodium Chloride (Sodium Chloride 0.45%) 1,000 mls @ 75 mls/hr IV .[id number] [facility]S [facility]CLUDE 234 BEDS AT [facility] Last Admin: 08/31/18 06:05 Dose: 75 mls/hr Isosorbide Mononitrate (Imdur Er) 30 mg PO DAILY [facility] 234 BEDS AT [facility] Last Admin: 08/31/18 09:07 Dose: 30 mg Metoprolol Succinate (Toprol Xl) 100 mg PO DAILY [facility] 234 BEDS AT [facility] Last Admin: 08/31/18 09:07 Dose: 100 mg Montelukast Sodium (Singulair) 10 mg PO DAILY [facility] 234 B[facility]S AT [facility] Last Admin: 08/31/18 09:07 Dose: 10 mg Mycophenolate Mofetil (Cellcept) 500 mg PO BID [facility] 234 B[facility]S AT [facility] Last Admin: 08/31/18 09:09 Dose: 500 mg Prednisone (Prednisone Tab) 5 mg PO DAILY [facility] 234 BEDS AT [facility] Last Admin: 08/31/18 09:07 Dose: 5 mg Rosuvastatin Calcium (Crestor) 20 mg PO HS [facility] 234 BEDS AT [facility] Last Admin: 08/30/18 21:20 Dose: 20 mg Sodium Bicarbonate (Sodium Bicarbonate Tab) 1,300 mg PO TID [facility] 234 BEDS AT [facility] Last Admin: 08/31/18 09:07 Dose: 1,300 mg Tacrolimus (Prograf Cap) 1 mg PO QPM [facility] 234 BEDS AT [facility] Last Admin: 08/30/18 17:30 Dose: 1 mg Tacrolimus (Prograf Cap) 2 mg PO DAILY [facility] 234 BEDS AT [facility] Last Admin: 08/31/18 09:08 Dose: 2 mg Tiotropium [place] (Spiriva) 18 mcg INH RQ24 [facility] 234 BEDS AT [facility] Last Admin: 08/31/18 11:00 Dose: Not Given Results - Vital Signs Recent Vital Signs: Last Vital Signs Temp 98 F 08/31/18 08:00 Pulse 73 08/31/18 08:07 Resp 20 08/31/18 08:00 BP 114/70 08/31/18 08:00 Pulse Ox 98 08/31/18 08:00 - Labs Result Diagrams: 08/31/18 08:47 08/31/18 08:47 Labs: Laboratory Results - last 24 hr 08/31/18 08/31/18 08/31/18 08:15 08:47 08:47 WBC 7.7 RBC 3.96 Hgb 11.9 Hct 34.3 MCV 86.6 MCH 29.9 MCHC 34.5 RDW 14.2 Plt Count 191 MPV 9.2 Neut % (Auto) 63.4 Lymph % (Auto) 25.1 [place] % (Auto) 8.1 Eos % (Auto) 2.9 Baso % (Auto) 0.5 Neut # (Auto) 4.9 Lymph # (Auto) 1.9 [place] # (Auto) 0.6 Eos # (Auto) 0.2 Baso # (Auto) 0.0 PT 11.0 INR 1.0 APTT 31 Sodium 144 Potassium 4.1 Chloride 114 H Carbon Dioxide 18 L Anion Gap 16 BUN 21 H Creatinine 1.0 Est GFR ( Amer) > 60 Est GFR (Non-Af Amer) 60 Random Glucose 89 Calcium 9.3 Total Bilirubin 0.6 AST 18 ALT 31 Alkaline Phosphatase 82 Total Protein 6.9 Albumin 4.0 Globulin 2.9 Albumin/Globulin Ratio 1.4 Beta HCG, Quant 08/31/18 08/31/18 08:47 12:03 WBC RBC Hgb Hct MCV MCH MCHC RDW Plt Count MPV Neut % (Auto) Lymph % (Auto) [place] % (Auto) Eos % (Auto) Baso % (Auto) Neut # (Auto) Lymph # (Auto) [place] # (Auto) Eos # (Auto) Baso # (Auto) PT INR APTT Sodium Potassium Chloride Carbon Dioxide Anion Gap BUN Creatinine Est GFR ( Amer) Est GFR (Non-Af Amer) Random Glucose Calcium Total Bilirubin AST ALT Alkaline Phosphatase Total Protein Albumin Globulin Albumin/Globulin Ratio Beta HCG, Quant 7.26 6.13 Assessment & Plan - Assessment and Plan (Free Text) Assessment: 48 yr with chest pain/incidental bhcg fnding Plan: plan cont cth lab procedure repeat bhcg in 48 cont medical management
--- NOTE | 2018-08-31 14:57 | CP.PCM.PN ---
Subjective - Date & Time of Evaluation Date of Evaluation: 08/31/18 Time of Evaluation: 14:56 - Subjective Subjective: Nephrology Consultation Note: Assessment: Stable chest pain, hx of CAD s/p stent congenital kidney disease s/p 4 kidney transplants, last DDRT in 2007 (f/up at [facility]) hypertension (years) ICH, pseudotumor cerebri (on diamox) recurrent UTIs, s/p ureteral stents and bladder reconstruction surgery hematuria, anemia, metabolic acidosis, hypomagnesemia Plan kidney transplant function stable, continue with her home regimen with prednisone 5 mg/day, cellcept 500 mg bid, prograf 2 mg in AM and 1 mg in PM BP control with meds as ordered. Maintain hemodynamics stable. Avoid hypotension. Monitor Input/Output, daily weights and renal function with basic metabolic panel pt undergoing cardiac work up, planned for coronary angiogram. continue with IVF to reduce the risk of DANI hematuria will need further work up. if pt planned for d/c home soon, then recommend outpt early f/up with her transplant center within next few days continue with sodium bicarb supplemented magnesium Dose meds/antibiotics for GFR >60.Avoid nephrotoxins/NSAIDs Glycemic control Further work up/management as per primary team Thanks for allowing me to participate in care of your patient. Will follow patient with you. Please call if any Qs. had d/w team Dr Darshan Valentino Office: [phone] Chief Complaint; chest pain Reason for consult: kidney transplant management HPI: Pt is a 48 F with hx of congenital kidney disease s/p 4 kidney transplants, last DDRT in 2007 (f/up at [facility]) hypertension (years) CAD s/p stent, ICH, pseudotumor cerebri (on diamox), recurrent UTIs, s/p ureteral stents and bladder reconstruction surgery presented with complaints of chest pain and being managed for it. renal consult for transplant management Denies OTC/herbal meds or NSAIDs No recent iodinated contrast exposure. No obvious episodes of low BP. she reports urine reddish in color for last 2 days. no associated chills or fever or dysuria. ROS: Cardiovascular: No chest pain at present Pulmonary: No shortness of breath Gastrointestinal: denies abdominal pain No nausea. No vomiting. Genitourinary: No pain while urinating. c/o blood in urine. All other negative except as mentioned in HPI Physical Examination: General Appearance: Comfortable, in no acute respiratory distress, co-operative . Vitals reviewed and noted as below Head; Atraumatic, normocephalic ENT: no ulcers no thrush. Tongue is midline. Oropharynx: no rash or ulcers. EYES: Pupils are equal, round and reactive to light accommodation. Eye muscles and extraocular movement intact. Sclera is anicteric. Neck; supple no lymphadenopathy, no thyromegaly or bruit Lungs: Normal respiratory rate/effort. Breath sounds bilateral equal and clear Heart: Normal rate. s1s2 normal. No rub or gallop. Extremities: no edema. No varicose veins Neurological: Patient is alert, awake and oriented to person, place and time. No focal deficit. Strength bilateral appropriate and equal Skin: Warm and dry. Normal turgor. No rash. Palpitation: Normal elasticity for age Abdomen: Abdomen is soft. Bowel sounds +. There is no abdominal tenderness, no guarding/rigidity no organomegaly, has mild discomfort over LLQ allograft Psych: normal insight and normal affect/mood MSK: no joint tenderness or swelling. Digits and nails normal, no deformity : kidney or bladder not palpable Labs/imaging reviewed. Past medical history, past surgical history, family history, social history, allergy reviewed and noted as below Family hx: no hx of CKD. Rest non-contributory UA 3+ blood renal sono 2017: left side hydronephrosis Objective - Vital Signs/Intake and Output Vital Signs (last 24 hours): Temp Pulse Resp BP Pulse Ox 98 F 79 20 114/70 98 08/31/18 08:00 08/31/18 12:00 08/31/18 08:00 08/31/18 08:00 08/31/18 08:00 Intake and Output: 08/31/18 08/31/18 06:59 18:59 Intake Total 840 Balance 840 - Medications Medications: Current Medications Acetazolamide (Diamox 250 Mg Tab) 250 mg PO BID [facility] Last Admin: 08/31/18 09:09 Dose: 250 mg Aspirin (Ecotrin) 81 mg PO DAILY [facility] Last Admin: 08/31/18 09:07 Dose: 81 mg Clopidogrel Bisulfate (Plavix) 75 mg PO DAILY [facility] Last Admin: 08/31/18 09:07 Dose: 75 mg Enoxaparin Sodium (Lovenox) 40 mg SC DAILY [facility] Last Admin: 08/30/18 10:39 Dose: Not Given Famotidine (Pepcid) 20 mg PO DAILY [facility] Last Admin: 08/31/18 09:07 Dose: 20 mg Sodium Chloride (Sodium Chloride 0.45%) 1,000 mls @ 75 mls/hr IV .[id number] [facility] Last Admin: 08/31/18 06:05 Dose: 75 mls/hr Isosorbide Mononitrate (Imdur Er) 30 mg PO DAILY [facility] Last Admin: 08/31/18 09:07 Dose: 30 mg Metoprolol Succinate (Toprol Xl) 100 mg PO DAILY [facility] Last Admin: 08/31/18 09:07 Dose: 100 mg Montelukast Sodium (Singulair) 10 mg PO DAILY [facility] Last Admin: 08/31/18 09:07 Dose: 10 mg Mycophenolate Mofetil (Cellcept) 500 mg PO BID [facility] Last Admin: 08/31/18 09:09 Dose: 500 mg Prednisone (Prednisone Tab) 5 mg PO DAILY [facility] Last Admin: 08/31/18 09:07 Dose: 5 mg Rosuvastatin Calcium (Crestor) 20 mg PO HS [facility] Last Admin: 08/30/18 21:20 Dose: 20 mg Sodium Bicarbonate (Sodium Bicarbonate Tab) 1,300 mg PO TID [facility] Last Admin: 08/31/18 14:45 Dose: Not Given Tacrolimus (Prograf Cap) 1 mg PO QPM [facility] Last Admin: 08/30/18 17:30 Dose: 1 mg Tacrolimus (Prograf Cap) 2 mg PO DAILY [facility] Last Admin: 08/31/18 09:08 Dose: 2 mg Tiotropium [place] (Spiriva) 18 mcg INH RQ24 [facility] Last Admin: 08/31/18 11:00 Dose: Not Given - Labs Labs: 08/31/18 08:47 08/31/18 08:47 PT 11.0 SECONDS (9.7-12.2) 08/31/18 08:15 INR 1.0 08/31/18 08:15 APTT 31 SECONDS (21-34) 08/31/18 08:15
--- NOTE | 2018-09-01 03:48 | PN ---
DATE: 08/31/2018 SUBJECTIVE: The patient seen and examined at bedside. The patient is feeling better. Denies any chest pain. Denies any other complaints. PHYSICAL EXAMINATION: GENERAL: A middle-aged female, lying in bed, in no acute distress. VITAL SIGNS: Blood pressure 108/66, pulse 73, respirations 20, temperature 98.1 degrees Fahrenheit, O2 sat is 100% on room air. HEENT: Pupils equal, round, reacting to light and accommodation. Extraocular muscles intact. No icterus. No pallor. No oral thrush. No pharyngeal congestion. NECK: Supple. No JVD. LUNGS: Bilateral vesicular breath sounds. No wheezing. No rhonchi. CARDIOVASCULAR SYSTEM: S1 and S2 present, regular. ABDOMEN: Soft, nontender. Bowel sounds present. No guarding. No rigidity. No rebound tenderness noted. CENTRAL NERVOUS SYSTEM: Alert, awake, oriented x3. No focal deficits noted. EXTREMITIES: No edema. Palpable peripheral pulses. MEDICATIONS: Include Diamox 250 mg b.i.d, aspirin 81 mg daily, Plavix 75 mg daily, Pepcid 20 mg daily, Imdur 30 mg daily, Toprol 100 mg daily, Singulair 10 mg daily, CellCept 500 mg p.o. b.i.d., prednisone 5 mg daily, Crestor 20 mg p.o. at bedtime, sodium bicarbonate 1300 mg p.o. t.i.d., half normal saline at 75 mL an hour, Prograf 1 mg in the evening and 2 mg in the morning, Spiriva 18 mcg inhalation daily. LABORATORY DATA: Labs from this morning: WBC 7.7, hemoglobin 11.9, hematocrit 34.3, platelets 191. Sodium 144, potassium 4.1, chloride 114, bicarbonate 18, BUN 21, creatinine 1, glucose 89, calcium 9.3. LFTs within normal limits. Urine culture, negative growth. ASSESSMENT AND PLAN: A middle-aged female with history of coronary artery disease, status post stent placement, congestive heart failure, positive stress test as per the patient a year ago, was unable to undergo cardiac catheterization secondary to her kidney transplant status, hypertension, hyperlipidemia, history of intracranial hemorrhage, partially blind, underwent bladder reconstructive surgery, admitted for chest pain, acute coronary syndrome ruled out but in view of her risk factors and prior abnormal stress test results, cardiac catheterization was recommended by Cardiology. The patient was unable to undergo cardiac catheterization today. According to business continuity specialist and laboratory phlebotomist procedures, the patient's beta human chorionic gonadotropin is slightly in the upper limit of normal. Cardiac catheterization lab protocol recommends Gynecology consultation and clearance prior to proceeding with cardiac catheterization. Gynecology consult requested. Procedure was canceled for today. We will follow up with Cardiology. Continue with current medication. Discussed with the patient. Vania Sampson MD
[2018-09-01] MEDS: Sodium Chloride 0.45% 1,000 ML IV SCH (05:05)
[2018-09-01 07:14] LABS: ALB/GLOB RATIO 1.4 (1.0-2.1); ALBUMIN 3.8 g/dL (3.5-5.0); ALT/SGPT 28 U/L (9-52); AST/SGOT 19 U/L (14-36); BLOOD UREA NITROGEN 20 mg/dL (7-17); CALCIUM 9.1 mg/dl (8.6-10.4); GFR NON-AFRICAN AMERICAN 53
[2018-09-01 07:21] LABS: BASO % 0.4 % (0.0-2.0); EOS # 0.2 K/uL (0.0-0.7); EOS % 2.7 % (0.0-4.0); HEMOGLOBIN 11.6 g/dL (11.0-16.0); LYMPH # 2.6 K/uL (1.0-4.3); LYMPH % 30.3 % (20.0-40.0); MEAN CELL VOLUME 87.3 fL (81.0-99.0); MEAN CORPUSCULAR HEMOGLOBIN 30.5 pg (27.0-31.0); MEAN CORPUSCULAR HGB CONC 34.9 g/dL (33.0-37.0); MEAN PLATELET VOLUME 9.5 fL (7.2-11.7); MONO # 0.8 K/uL (0.0-0.8); MONO % 8.8 % (0.0-10.0); NEUT % 57.8 % (50.0-75.0); NRBC % 0.1 % (0.0-2.0); RBC 3.81 Mil/uL (3.80-5.20); RED CELL DISTRIBUTION WIDTH 14.3 % (11.5-14.5); WHITE BLOOD COUNT 8.6 K/uL (4.8-10.8)
[2018-09-01] MEDS: Metoprolol Succinate 50 mg XL Tab PO SCH (10:37)
[2018-09-01] MEDS: Tiotropium 18 mcg Cap For Inhalation INH SCH (11:03)
--- NOTE | 2018-09-01 11:19 | CP.PCM.PN ---
Subjective - Date & Time of Evaluation Date of Evaluation: 09/01/18 Time of Evaluation: 11:18 - Subjective Subjective: Progress note dictated #[id number] Objective - Vital Signs/Intake and Output Vital Signs (last 24 hours): Temp Pulse Resp BP Pulse Ox 97.0 F L 77 20 108/70 97 09/01/18 07:40 09/01/18 08:17 09/01/18 07:40 09/01/18 07:40 09/01/18 07:40 Intake and Output: 09/01/18 09/01/18 06:59 18:59 Intake Total 600 Balance 600 - Medications Medications: Current Medications Acetazolamide (Diamox 250 Mg Tab) 250 mg PO BID [facility] Last Admin: 09/01/18 10:36 Dose: 250 mg Aspirin (Ecotrin) 81 mg PO DAILY [facility] Last Admin: 09/01/18 10:37 Dose: 81 mg Clopidogrel Bisulfate (Plavix) 75 mg PO DAILY [facility] Last Admin: 09/01/18 10:37 Dose: 75 mg Enoxaparin Sodium (Lovenox) 40 mg SC DAILY [facility] Last Admin: 08/30/18 10:39 Dose: Not Given Famotidine (Pepcid) 20 mg PO DAILY [facility] Last Admin: 09/01/18 10:37 Dose: 20 mg Sodium Chloride (Sodium Chloride 0.45%) 1,000 mls @ 75 mls/hr IV .[id number] [facility] Last Admin: 09/01/18 05:05 Dose: Not Given Isosorbide Mononitrate (Imdur Er) 30 mg PO DAILY [facility] Last Admin: 09/01/18 10:37 Dose: 30 mg Metoprolol Succinate (Toprol Xl) 100 mg PO DAILY [facility] Last Admin: 09/01/18 10:37 Dose: 100 mg Montelukast Sodium (Singulair) 10 mg PO DAILY [facility] Last Admin: 09/01/18 10:37 Dose: 10 mg Mycophenolate Mofetil (Cellcept) 500 mg PO BID [facility] Last Admin: 09/01/18 10:36 Dose: 500 mg Prednisone (Prednisone Tab) 5 mg PO DAILY [facility] Last Admin: 09/01/18 10:37 Dose: 5 mg Rosuvastatin Calcium (Crestor) 20 mg PO HS [facility] Last Admin: 08/31/18 21:24 Dose: 20 mg Sodium Bicarbonate (Sodium Bicarbonate Tab) 1,300 mg PO TID [facility] Last Admin: 09/01/18 10:35 Dose: 1,300 mg Tacrolimus (Prograf Cap) 1 mg PO QPM [facility] Last Admin: 08/31/18 17:41 Dose: 1 mg Tacrolimus (Prograf Cap) 2 mg PO DAILY [facility] Last Admin: 09/01/18 10:38 Dose: 2 mg Tiotropium [place] (Spiriva) 18 mcg INH RQ24 [facility] Last Admin: 09/01/18 11:03 Dose: Not Given - Labs Labs: 09/01/18 06:49 09/01/18 06:49 PT 11.0 SECONDS (9.7-12.2) 08/31/18 08:15 INR 1.0 08/31/18 08:15 APTT 31 SECONDS (21-34) 08/31/18 08:15
--- NOTE | 2018-09-01 11:32 | CP.PCM.PN ---
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 check prograf level in AM BP control with meds as ordered. Maintain hemodynamics stable. Avoid hypotension. Monitor Input/Output, daily weights and renal function with basic metabolic pa ivan pt undergoing cardiac work up, planned for coronary angiogram. continue with IVF to reduce the risk of DANI hematuria: will order further work up: repeat UA, sonogram and BK virus PCR. if pt planned for d/c home soon, then recommend outpt early f/up with her transplant center within next few days continue with sodium bicarb supplemented magnesium PHARMACY TECHNICIAN following for low level hcg + Dose meds/antibiotics for GFR >60.Avoid nephrotoxins/NSAIDs Glycemic control Further work up/management as per primary team Thanks for allowing me to participate in care of your patient. Will follow amrita ent with you. Please call if any Qs. 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 renal consult for transplant management Denies OTC/herbal meds or NSAIDs No recent iodinated contrast exposure. No obvious episodes of low BP. she reports urine reddish in color for last 2 days. no associated chills or fever or dysuria. ROS: Cardiovascular: No chest pain at present Pulmonary: No shortness of breath Gastrointestinal: denies abdominal pain No nausea. No vomiting. Genitourinary: No pain while urinating. c/o blood in urine but resolved now. All other negative except as mentioned in HPI Physical Examination: General Appearance: Comfortable, in no acute respiratory distress, co-operative . Vitals reviewed and noted as below Head; Atraumatic, normocephalic ENT: no ulcers no thrush. Tongue is midline. Oropharynx: no rash or ulcers. EYES: Pupils are equal, round and reactive to light accommodation. Eye muscles and extraocular movement intact. Sclera is anicteric. Neck; supple no lymphadenopathy, no thyromegaly or bruit Lungs: Normal respiratory rate/effort. Breath sounds bilateral equal and clear Heart: Normal rate. s1s2 normal. No rub or gallop. Extremities: no edema. No varicose veins Neurological: Patient is alert, awake and oriented to person, place and time. No focal deficit. Strength bilateral appropriate and equal Skin: Warm and dry. Normal turgor. No rash. Palpitation: Normal elasticity for age Abdomen: Abdomen is soft. Bowel sounds +. There is no abdominal tenderness, no guarding/rigidity no organomegaly, has mild discomfort over LLQ allograft Psych: normal insight and normal affect/mood MSK: no joint tenderness or swelling. Digits and nails normal, no deformity : kidney or bladder not palpable Labs/imaging reviewed. Past medical history, past surgical history, family history, social history, allergy reviewed and noted as below Family hx: no hx of CKD. Rest non-contributory UA 3+ blood renal sono 2017: left side hydronephrosis Objective - Vital Signs/Intake and Output Vital Signs (last 24 hours): Temp Pulse Resp BP Pulse Ox 97.0 F L 77 20 108/70 97 09/01/18 07:40 09/01/18 08:17 09/01/18 07:40 09/01/18 07:40 09/01/18 07:40 Intake and Output: 09/01/18 09/01/18 06:59 18:59 Intake Total 600 Balance 600 - Medications Medications: Current Medications Acetazolamide (Diamox 250 Mg Tab) 250 mg PO BID [facility] Last Admin: 09/01/18 10:36 Dose: 250 mg Aspirin (Ecotrin) 81 mg PO DAILY [facility] Last Admin: 09/01/18 10:37 Dose: 81 mg Clopidogrel Bisulfate (Plavix) 75 mg PO DAILY [facility] Last Admin: 09/01/18 10:37 Dose: 75 mg Enoxaparin Sodium (Lovenox) 40 mg SC DAILY [facility] Last Admin: 08/30/18 10:39 Dose: Not Given Famotidine (Pepcid) 20 mg PO DAILY [facility] Last Admin: 09/01/18 10:37 Dose: 20 mg Sodium Chloride (Sodium Chloride 0.45%) 1,000 mls @ 75 mls/hr IV .[id number] [facility] Last Admin: 09/01/18 05:05 Dose: Not Given Isosorbide Mononitrate (Imdur Er) 30 mg PO DAILY [facility] Last Admin: 09/01/18 10:37 Dose: 30 mg Metoprolol Succinate (Toprol Xl) 100 mg PO DAILY [facility] Last Admin: 09/01/18 10:37 Dose: 100 mg Montelukast Sodium (Singulair) 10 mg PO DAILY [facility] Last Admin: 09/01/18 10:37 Dose: 10 mg Mycophenolate Mofetil (Cellcept) 500 mg PO BID [facility] Last Admin: 09/01/18 10:36 Dose: 500 mg Prednisone (Prednisone Tab) 5 mg PO DAILY [facility] Last Admin: 09/01/18 10:37 Dose: 5 mg Rosuvastatin Calcium (Crestor) 20 mg PO HS [facility] Last Admin: 08/31/18 21:24 Dose: 20 mg Sodium Bicarbonate (Sodium Bicarbonate Tab) 1,300 mg PO TID [facility] Last Admin: 09/01/18 10:35 Dose: 1,300 mg Tacrolimus (Prograf Cap) 1 mg PO QPM [facility] Last Admin: 08/31/18 17:41 Dose: 1 mg Tacrolimus (Prograf Cap) 2 mg PO DAILY [facility] Last Admin: 09/01/18 10:38 Dose: 2 mg Tiotropium [place] (Spiriva) 18 mcg INH RQ24 [facility] Last Admin: 09/01/18 11:03 Dose: Not Given - Labs Labs: 09/01/18 06:49 09/01/18 06:49 PT 11.0 SECONDS (9.7-12.2) 08/31/18 08:15 INR 1.0 08/31/18 08:15 APTT 31 SECONDS (21-34) 08/31/18 08:15
--- NOTE | 2018-09-01 12:37 | CP.PCM.CON ---
<Marco Neff - Last Filed: 09/01/18 12:34> History of Present Illness - History of Present Illness History of Present Illness: Marco Neff, PGY-[address] Damon CC: Palpitations Patient slept well overnight. No complaints of chest pain or shortness of breath but patient endorses occasional palpitations. Call made to primary [employer] operator Dr. Marlow regarding ongoing care. Past Patient History - Past Medical History & Family History Past Medical History?: Yes - Past Social History Smoking Status: Never Smoked - CARDIAC Hx Cardiac Disorders: Yes Hx Congestive Heart Failure: Yes Hx Hypercholesterolemia: Yes Hx Hypertension: Yes - PULMONARY Hx Asthma: Yes - NEUROLOGICAL Hx Neurological Disorder: No - HEENT Hx HEENT Problems: Yes Hx Blind: Yes (partial) Hx Glaucoma: Yes Other/Comment: wears glasses,cerebral pseudo tumor - RENAL Hx Chronic Kidney Disease: Yes - ENDOCRINE/METABOLIC Hx Endocrine Disorders: Yes Other/Comment: parathyroidectomy - HEMATOLOGICAL/ONCOLOGICAL Hx Blood Disorders: No - INTEGUMENTARY Hx Dermatological Problems: No - MUSCULOSKELETAL/RHEUMATOLOGICAL Hx Musculoskeletal Disorders: No Hx Falls: No - GASTROINTESTINAL Hx Gastrointestinal Disorders: No - GENITOURINARY/GYNECOLOGICAL Hx Genitourinary Disorders: Yes Hx Urinary Tract Infection: Yes (chronic) - PSYCHIATRIC Hx Substance Use: No - SURGICAL HISTORY Hx Surgeries: Yes Hx Coronary Stent: Yes (x2) - ANESTHESIA Hx Anesthesia: Yes Hx Anesthesia Reactions: No Hx Malignant Hyperthermia: No Has any member of the family had a problem w/ anesthesia?: No Meds Allergies/Adverse Reactions: Allergies Allergy/AdvReac Type Severity Reaction Status Date / Time vancomycin Allergy Intermediate RASH Verified 08/29/18 17:00 - Medications Medications: Current Medications Acetazolamide (Diamox 250 Mg Tab) 250 mg PO BID [facility] Last Admin: 09/01/18 10:36 Dose: 250 mg Aspirin (Ecotrin) 81 mg PO DAILY [facility] Last Admin: 09/01/18 10:37 Dose: 81 mg Clopidogrel Bisulfate (Plavix) 75 mg PO DAILY [facility] Last Admin: 09/01/18 10:37 Dose: 75 mg Enoxaparin Sodium (Lovenox) 40 mg SC DAILY [facility] Last Admin: 08/30/18 10:39 Dose: Not Given Famotidine (Pepcid) 20 mg PO DAILY [facility] Last Admin: 09/01/18 10:37 Dose: 20 mg Sodium Chloride (Sodium Chloride 0.45%) 1,000 mls @ 75 mls/hr IV .[id number] [facility] Last Admin: 09/01/18 05:05 Dose: Not Given Isosorbide Mononitrate (Imdur Er) 30 mg PO DAILY [facility] Last Admin: 09/01/18 10:37 Dose: 30 mg Metoprolol Succinate (Toprol Xl) 100 mg PO DAILY [facility] Last Admin: 09/01/18 10:37 Dose: 100 mg Montelukast Sodium (Singulair) 10 mg PO DAILY [facility] Last Admin: 09/01/18 10:37 Dose: 10 mg Mycophenolate Mofetil (Cellcept) 500 mg PO BID [facility] Last Admin: 09/01/18 10:36 Dose: 500 mg Prednisone (Prednisone Tab) 5 mg PO DAILY [facility] Last Admin: 09/01/18 10:37 Dose: 5 mg Rosuvastatin Calcium (Crestor) 20 mg PO HS [facility] Last Admin: 08/31/18 21:24 Dose: 20 mg Sodium Bicarbonate (Sodium Bicarbonate Tab) 1,300 mg PO TID [facility] Last Admin: 09/01/18 10:35 Dose: 1,300 mg Tacrolimus (Prograf Cap) 1 mg PO QPM [facility] Last Admin: 08/31/18 17:41 Dose: 1 mg Tacrolimus (Prograf Cap) 2 mg PO DAILY [facility] Last Admin: 09/01/18 10:38 Dose: 2 mg Tiotropium [place] (Spiriva) 18 mcg INH RQ24 [facility] Last Admin: 09/01/18 11:03 Dose: Not Given Physical Exam - Additional Findings Additional findings: - Constitutional Appears: Well, Non-toxic, No Acute Distress. - Head Exam Head Exam: ATRAUMATIC, NORMOCEPHALIC. Pigmentation changes to upper cheeks - Eye Exam Eye Exam: EOMI. absent: Normal appearance Pupil Exam: PERRL - ENT Exam ENT Exam: Mucous Membranes Moist - Neck Exam Neck exam: Positive for: Normal Inspection - Respiratory Exam Respiratory Exam: Clear to Auscultation Bilateral, NORMAL BREATHING PATTERN. absent: Chest Wall Tenderness, Prolonged Expiratory Phase, Rales, Wheezes, Respiratory Distress, Stridor - Cardiovascular Exam Cardiovascular Exam: RRR, +S1, +S2. absent: Bradycardia, Tachycardia - GI/Abdominal Exam GI & Abdominal Exam: Normal Bowel Sounds, Soft. absent: Tenderness Additional comments: L flank/inguinal scar from kidney transplant - Extremities Exam Extremities exam: Positive for: normal inspection. Negative for: calf tenderness - Back Exam Back exam: absent: CVA tenderness (L), CVA tenderness (R) - Neurological Exam Neurological exam: Alert, Normal Gait, Oriented x3 - Psychiatric Exam Psychiatric exam: Normal Affect, Normal Mood - Skin Skin Exam: Dry, Intact, Normal Color, Warm Results - Vital Signs Recent Vital Signs: Last Vital Signs Temp 97.0 F L 09/01/18 07:40 Pulse 76 09/01/18 12:00 Resp 20 09/01/18 07:40 BP 108/70 09/01/18 07:40 Pulse Ox 97 09/01/18 07:40 - Labs Result Diagrams: 09/01/18 06:49 09/01/18 06:49 Labs: Laboratory Results - last 24 hr 08/31/18 09/01/18 09/01/18 12:03 06:49 06:49 WBC 8.6 RBC 3.81 Hgb 11.6 Hct 33.3 L MCV 87.3 MCH 30.5 MCHC 34.9 RDW 14.3 Plt Count 195 MPV 9.5 Neut % (Auto) 57.8 Lymph % (Auto) 30.3 [place] % (Auto) 8.8 Eos % (Auto) 2.7 Baso % (Auto) 0.4 Neut # (Auto) 5.0 Lymph # (Auto) 2.6 [place] # (Auto) 0.8 Eos # (Auto) 0.2 Baso # (Auto) 0.0 Sodium 145 Potassium 4.0 Chloride 113 H Carbon Dioxide 20 L Anion Gap 15 BUN 20 H Creatinine 1.1 Est GFR ( Amer) > 60 Est GFR (Non-Af Amer) 53 Random Glucose 85 Calcium 9.1 Total Bilirubin 0.4 AST 19 ALT 28 Alkaline Phosphatase 82 Total Protein 6.5 Albumin 3.8 Globulin 2.7 Albumin/Globulin Ratio 1.4 Beta HCG, Quant 6.13 Assessment & Plan - Assessment and Plan (Free Text) Assessment: 48 F with PMHx of multiple renal transplants, CAD with 2 stents, cardiac cath 2 years ago and an abnormal stress test last year who presents with complaints of chest pain. One year ago, decision was made not to pursue follow up cardiac cath to abnormal stress test due to likely effects on renal function. Cardiac cath pending repeat B-HCg level tomorrow after 48 hours per OBGYN recs will monitor Cr in AM - 1.1 today from 1.0 yesterday. Plan for catheterization tomorrow afternoon pending levels above F/U renal U/S Patient seen, case reviewed and plan approved. Further recs per Dr. Damon. Marco Neff, PGY-1 <Bautista Damon - Last Filed: 09/01/18 18:36> Meds - Medications Medications: Current Medications Acetazolamide (Diamox 250 Mg Tab) 250 mg PO BID [facility] Last Admin: 09/01/18 17:40 Dose: 250 mg Aspirin (Ecotrin) 81 mg PO DAILY [facility] Last Admin: 09/01/18 10:37 Dose: 81 mg Clopidogrel Bisulfate (Plavix) 75 mg PO DAILY [facility] Last Admin: 09/01/18 10:37 Dose: 75 mg Enoxaparin Sodium (Lovenox) 40 mg SC DAILY [facility] Last Admin: 08/30/18 10:39 Dose: Not Given Famotidine (Pepcid) 20 mg PO DAILY [facility] Last Admin: 09/01/18 10:37 Dose: 20 mg Sodium Chloride (Sodium Chloride 0.45%) 1,000 mls @ 75 mls/hr IV .[id number] [facility] Last Admin: 09/01/18 05:05 Dose: Not Given Isosorbide Mononitrate (Imdur Er) 30 mg PO DAILY [facility] Last Admin: 09/01/18 10:37 Dose: 30 mg Metoprolol Succinate (Toprol Xl) 100 mg PO DAILY [facility] Last Admin: 09/01/18 10:37 Dose: 100 mg Montelukast Sodium (Singulair) 10 mg PO DAILY [facility] Last Admin: 09/01/18 10:37 Dose: 10 mg Mycophenolate Mofetil (Cellcept) 500 mg PO BID [facility] Last Admin: 09/01/18 17:39 Dose: 500 mg Prednisone (Prednisone Tab) 5 mg PO DAILY [facility] Last Admin: 09/01/18 10:37 Dose: 5 mg Rosuvastatin Calcium (Crestor) 20 mg PO HS [facility] Last Admin: 08/31/18 21:24 Dose: 20 mg Sodium Bicarbonate (Sodium Bicarbonate Tab) 1,300 mg PO TID [facility] Last Admin: 09/01/18 17:38 Dose: 1,300 mg Tacrolimus (Prograf Cap) 1 mg PO QPM [facility] Last Admin: 09/01/18 17:39 Dose: 1 mg Tacrolimus (Prograf Cap) 2 mg PO DAILY [facility] Last Admin: 09/01/18 10:38 Dose: 2 mg Tiotropium [place] (Spiriva) 18 mcg INH RQ24 [facility] Last Admin: 09/01/18 11:03 Dose: Not Given Results - Vital Signs Recent Vital Signs: Last Vital Signs Temp 97.9 F 09/01/18 15:00 Pulse 82 09/01/18 16:00 Resp 20 09/01/18 15:00 BP 108/74 09/01/18 15:00 Pulse Ox 98 09/01/18 15:00 - Labs Result Diagrams: 09/01/18 06:49 09/01/18 06:49 Labs: Laboratory Results - last 24 hr 09/01/18 09/01/18 09/01/18 06:49 06:49 16:08 WBC 8.6 RBC 3.81 Hgb 11.6 Hct 33.3 L MCV 87.3 MCH 30.5 MCHC 34.9 RDW 14.3 Plt Count 195 MPV 9.5 Neut % (Auto) 57.8 Lymph % (Auto) 30.3 [place] % (Auto) 8.8 Eos % (Auto) 2.7 Baso % (Auto) 0.4 Neut # (Auto) 5.0 Lymph # (Auto) 2.6 [place] # (Auto) 0.8 Eos # (Auto) 0.2 Baso # (Auto) 0.0 Sodium 145 Potassium 4.0 Chloride 113 H Carbon Dioxide 20 L Anion Gap 15 BUN 20 H Creatinine 1.1 Est GFR ( Amer) > 60 Est GFR (Non-Af Amer) 53 Random Glucose 85 Calcium 9.1 Total Bilirubin 0.4 AST 19 ALT 28 Alkaline Phosphatase 82 Total Protein 6.5 Albumin 3.8 Globulin 2.7 Albumin/Globulin Ratio 1.4 Urine Color Yellow Urine Clarity Hazy Urine pH 7.0 Ur Specific [place] 1.010 Urine Protein Negative Urine Glucose (UA) Normal Urine Ketones Negative Urine Blood Negative Urine Nitrate Negative Urine Bilirubin Negative Urine Urobilinogen Normal Ur Leukocyte Esterase 3+ H Urine WBC (Auto) 95 H Urine RBC (Auto) 6 H Ur Squamous Epith Cells 19 H Attending/Attestation - Attestation I have personally seen and examined this patient.: Yes I have fully participated in the care of the patient.: Yes I have reviewed all pertinent clinical information: Yes Notes (Text): 09/01/18 18:35 spoke with ( primary [employer] operator ) who agrees with plan for cath if repeate hcg -ve plan tomorrow
--- NOTE | 2018-09-01 13:29 | US ---
Date of service: 09/01/2018 PROCEDURE: Renal ultrasound HISTORY: hematuria. please eval LLQ transplant kidney COMPARISON: Renal ultrasound performed 10/04/17 TECHNIQUE: Sonogram of the left kidney. FINDINGS: Left lower quadrant transplant kidney measures approximately 11.8 x 5.6 x 5.8 cm. Mild hydronephrosis with stent present extending from the transplant kidney renal pelvis into the urinary bladder. The urinary bladder is decompressed limiting evaluation. Images of the [place] kidneys were not provided in this examination. IMPRESSION: Mild hydronephrosis of the left lower quadrant transplant kidney with stent present extending from the transplant kidney renal pelvis into the urinary bladder.
[2018-09-01] MEDS ORDERED: Aluminum Hydroxide/Magnesium Hydroxide Susp (30 mL) PO ONE (15:42)
[2018-09-01 16:14] LABS: SQUAMOUS EPITHIAL 19 /hpf (0-5); URINE BILIRUBIN NEGATIVE (NEGATIVE); URINE BLOOD NEGATIVE (NEGATIVE); URINE CLARITY Hazy (Clear); URINE COLOR Yellow (YELLOW); URINE GLUCOSE (UA) NORMAL (Normal); URINE LEUKOCYTE ESTERASE 3+ Leu/uL (Negative); URINE PROTEIN NEGATIVE (NEGATIVE); URINE UROBILINOGEN NORMAL mg/dL (0.2-1.0)
--- NOTE | 2018-09-01 18:38 | CP.PCM.PN ---
Subjective - Date & Time of Evaluation Date of Evaluation: 08/31/18 Time of Evaluation: 18:37 - Subjective Subjective: cath cancelled due to Hcg levels paid search specialist consult Objective - Vital Signs/Intake and Output Vital Signs (last 24 hours): Temp Pulse Resp BP Pulse Ox 97.9 F 82 20 108/74 98 09/01/18 15:00 09/01/18 16:00 09/01/18 15:00 09/01/18 15:00 09/01/18 15:00 Intake and Output: 09/01/18 09/01/18 06:59 18:59 Intake Total 600 Balance 600 - Medications Medications: Current Medications Acetazolamide (Diamox 250 Mg Tab) 250 mg PO BID [facility] Last Admin: 09/01/18 17:40 Dose: 250 mg Aspirin (Ecotrin) 81 mg PO DAILY [facility] Last Admin: 09/01/18 10:37 Dose: 81 mg Clopidogrel Bisulfate (Plavix) 75 mg PO DAILY [facility] Last Admin: 09/01/18 10:37 Dose: 75 mg Enoxaparin Sodium (Lovenox) 40 mg SC DAILY [facility] Last Admin: 08/30/18 10:39 Dose: Not Given Famotidine (Pepcid) 20 mg PO DAILY [facility] Last Admin: 09/01/18 10:37 Dose: 20 mg Sodium Chloride (Sodium Chloride 0.45%) 1,000 mls @ 75 mls/hr IV .[id number] [facility] Last Admin: 09/01/18 05:05 Dose: Not Given Isosorbide Mononitrate (Imdur Er) 30 mg PO DAILY [facility] Last Admin: 09/01/18 10:37 Dose: 30 mg Metoprolol Succinate (Toprol Xl) 100 mg PO DAILY [facility] Last Admin: 09/01/18 10:37 Dose: 100 mg Montelukast Sodium (Singulair) 10 mg PO DAILY [facility] Last Admin: 09/01/18 10:37 Dose: 10 mg Mycophenolate Mofetil (Cellcept) 500 mg PO BID [facility] Last Admin: 09/01/18 17:39 Dose: 500 mg Prednisone (Prednisone Tab) 5 mg PO DAILY [facility] Last Admin: 09/01/18 10:37 Dose: 5 mg Rosuvastatin Calcium (Crestor) 20 mg PO HS [facility] Last Admin: 08/31/18 21:24 Dose: 20 mg Sodium Bicarbonate (Sodium Bicarbonate Tab) 1,300 mg PO TID [facility] Last Admin: 09/01/18 17:38 Dose: 1,300 mg Tacrolimus (Prograf Cap) 1 mg PO QPM [facility] Last Admin: 09/01/18 17:39 Dose: 1 mg Tacrolimus (Prograf Cap) 2 mg PO DAILY [facility] Last Admin: 09/01/18 10:38 Dose: 2 mg Tiotropium [place] (Spiriva) 18 mcg INH RQ24 [facility] Last Admin: 09/01/18 11:03 Dose: Not Given - Labs Labs: 09/01/18 06:49 09/01/18 06:49 PT 11.0 SECONDS (9.7-12.2) 08/31/18 08:15 INR 1.0 08/31/18 08:15 APTT 31 SECONDS (21-34) 08/31/18 08:15 - Constitutional Appears: Well - Head Exam Head Exam: ATRAUMATIC, NORMAL INSPECTION, NORMOCEPHALIC - Eye Exam Eye Exam: EOMI, Normal appearance, PERRL Pupil Exam: NORMAL ACCOMODATION, PERRL - ENT Exam ENT Exam: Mucous Membranes Moist, Normal Exam - Neck Exam Neck Exam: Full ROM, Normal Inspection. absent: Lymphadenopathy - Respiratory Exam Respiratory Exam: Clear to Ausculation Bilateral, NORMAL BREATHING PATTERN - Cardiovascular Exam Cardiovascular Exam: REGULAR RHYTHM, +S1, +S2. absent: Murmur - GI/Abdominal Exam GI & Abdominal Exam: Soft, Normal Bowel Sounds. absent: Tenderness - Extremities Exam Extremities Exam: Full ROM, Normal Capillary Refill, Normal Inspection. absent: Joint Swelling, Pedal Edema - Back Exam Back Exam: NORMAL INSPECTION - Neurological Exam Neurological Exam: Alert, Awake, CN II-XII Intact, Normal Gait, Oriented x3 - Psychiatric Exam Psychiatric exam: Normal Affect, Normal Mood - Skin Skin Exam: Dry, Intact, Normal Color, Warm Assessment and Plan (1) Chest pain Status: Acute (2) Acute dyspnea Status: Acute (3) CAD S/P percutaneous coronary angioplasty Status: Chronic (4) Essential (primary) hypertension Status: Chronic
--- NOTE | 2018-09-02 00:42 | PN ---
DATE: 09/01/2018SUBJECTIVE: The patient was seen and examined at bedside. The patient offers no chest pain. No other complaints. PHYSICAL EXAMINATION: GENERAL: Middle-aged female, lying in bed in no acute distress. VITAL SIGNS: Blood pressure 108/74, pulse 82, respirations 20, temperature 97.9 degrees Fahrenheit, and O2 saturation is 98% on room air. HEENT: Pupils equal, round and reacting to light and accommodation. Extraocular muscles intact. No icterus. No pallor. No oral thrush. No pharyngeal congestion. NECK: Supple. No JVD. LUNGS: Bilaterally vesicular breath sounds. No wheezing. No rhonchi. CARDIOVASCULAR SYSTEM: S1 and S2, present and regular. ABDOMEN: Soft and nontender. Bowel sounds present. No guarding. No rigidity. No rebound tenderness noted. CENTRAL NERVOUS SYSTEM: Alert, awake, and oriented x3. No focal deficits noted. EXTREMITIES: No edema. Palpable peripheral pulses. MEDICATIONS: Include acetazolamide 250 mg p.o. b.i.d., aspirin 81 mg daily, Plavix 75 mg p.o. daily, Lovenox 40 mg subcutaneous daily, Pepcid 20 mg daily, Imdur 30 mg daily, Toprol-XL 100 mg p.o. daily, Singulair 10 mg daily, CellCept 500 mg p.o. b.i.d., prednisone 5 mg daily, Crestor 20 mg p.o. at bedtime, sodium bicarbonate 1300 mg p.o. t.i.d., half normal saline 75 mL an hour, Prograf 1 mg in the evening and Prograf 3 mg daily, and Spiriva 18 mcg daily. LABORATORY DATA: Labs from this morning: WBC 8.6, hemoglobin 11.6, hematocrit 33.3, platelets 195. Sodium 145, potassium 4.2, chloride 113, bicarbonate 20, BUN 20, creatinine 1.1, glucose 85, calcium 9.1, total bilirubin 0.4, AST 19, ALT 28, alkaline phosphatase 82, total protein 6.5, albumin 3.8. UA: Specific gravity 1.010, pH 7, leukocyte esterase 3+, wbc 95, rbc 6. Renal ultrasound: Right hydronephrosis of the left lower quadrant, transplant kidney with a stent present extending from the transplant kidney, renal pelvis into the urinary bladder. ASSESSMENT AND PLAN: Middle-aged female with history of congenital kidney disease, status post multiple renal transplant, last one was in 2007; hypertension; hyperlipidemia; coronary artery disease, status post stent placement; intracranial hemorrhage, pseudotumor cerebri; bladder reconstructive surgery, status post urethral stent; admitted for chest pain and acute coronary syndrome ruled out; found to have microscopic hematuria for possible cardiac catheterization in a.m. Discussed with Cardiology at bedside this morning. Her creatinine slightly increased from 1 to 1.1. The patient is concerned for slight increase in creatinine as her baseline as per patient is 0.8. We will repeat laboratories in a.m. We will continue with current medications. Vania Sampson MD
[2018-09-02 07:21] LABS: BASO % 0.2 % (0.0-2.0); EOS # 0.2 K/uL (0.0-0.7); EOS % 2.6 % (0.0-4.0); HEMOGLOBIN 11.8 g/dL (11.0-16.0); LYMPH # 2.2 K/uL (1.0-4.3); LYMPH % 25.4 % (20.0-40.0); MEAN CELL VOLUME 86.4 fL (81.0-99.0); MEAN CORPUSCULAR HEMOGLOBIN 30.3 pg (27.0-31.0); MEAN PLATELET VOLUME 9.4 fL (7.2-11.7); MONO # 0.7 K/uL (0.0-0.8); MONO % 8.4 % (0.0-10.0); NEUT # 5.4 K/uL (1.8-7.0); NEUT % 63.4 % (50.0-75.0); NRBC % 0.1 % (0.0-2.0); RBC 3.89 Mil/uL (3.80-5.20); RED CELL DISTRIBUTION WIDTH 14.6 % (11.5-14.5); WHITE BLOOD COUNT 8.5 K/uL (4.8-10.8)
[2018-09-02] MEDS: Tiotropium 18 mcg Cap For Inhalation INH SCH (07:58)
[2018-09-02 08:29] LABS: ALB/GLOB RATIO 1.5 (1.0-2.1); ALT/SGPT 32 U/L (9-52); AST/SGOT 18 U/L (14-36); BLOOD UREA NITROGEN 21 mg/dL (7-17); CALCIUM 9.2 mg/dl (8.6-10.4); GFR NON-AFRICAN AMERICAN 60
[2018-09-02] MEDS: Metoprolol Succinate 50 mg XL Tab PO SCH (10:12)
--- NOTE | 2018-09-02 10:20 | CP.PCM.PN ---
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 sent prograf level in AM today BP control with meds as ordered. Maintain hemodynamics stable. Avoid hypotension. Monitor Input/Output, daily weights and renal function with basic metabolic panel pt undergoing cardiac work up, planned for coronary angiogram. continue with IVF to reduce the risk of DANI hematuria: will order further work up: repeat UA, sonogram and BK virus PCR, urine c/s. if pt planned for d/c home soon, then recommend outpt early f/up with her transplant center within next few days continue with sodium bicarb supplemented magnesium [employer] following for low level hcg + Dose meds/antibiotics for GFR >60.Avoid nephrotoxins/NSAIDs Glycemic control Further work up/management as per primary team Thanks for allowing me to participate in care of your patient. Will follow patient with you. Please call if any Qs. 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 renal consult for transplant management Denies OTC/herbal meds or NSAIDs No recent iodinated contrast exposure. No obvious episodes of low BP. she reports urine reddish in color for last 2 days. no associated chills or fever or dysuria. ROS: Cardiovascular: No chest pain at present Pulmonary: No shortness of breath Gastrointestinal: denies abdominal pain No nausea. No vomiting. Genitourinary: No pain while urinating. c/o blood in urine but resolved now. All other negative except as mentioned in HPI Physical Examination: General Appearance: Comfortable, in no acute respiratory distress, co-operative . Vitals reviewed and noted as below Head; Atraumatic, normocephalic ENT: no ulcers no thrush. Tongue is midline. Oropharynx: no rash or ulcers. EYES: Pupils are equal, round and reactive to light accommodation. Eye muscles and extraocular movement intact. Sclera is anicteric. Neck; supple no lymphadenopathy, no thyromegaly or bruit Lungs: Normal respiratory rate/effort. Breath sounds bilateral equal and clear Heart: Normal rate. s1s2 normal. No rub or gallop. Extremities: no edema. No varicose veins Neurological: Patient is alert, awake and oriented to person, place and time. No focal deficit. Strength bilateral appropriate and equal Skin: Warm and dry. Normal turgor. No rash. Palpitation: Normal elasticity for age Abdomen: Abdomen is soft. Bowel sounds +. There is no abdominal tenderness, no guarding/rigidity no organomegaly, no further discomfort over LLQ allograft Psych: normal insight and normal affect/mood MSK: no joint tenderness or swelling. Digits and nails normal, no deformity : kidney or bladder not palpable Labs/imaging reviewed. Past medical history, past surgical history, family history, social history, allergy reviewed and noted as below Family hx: no hx of CKD. Rest non-contributory UA 3+ blood renal sono mild left side hydronephrosis Objective - Vital Signs/Intake and Output Vital Signs (last 24 hours): Temp Pulse Resp BP Pulse Ox 97.9 F 84 20 126/78 98 09/02/18 08:01 09/02/18 10:11 09/02/18 08:01 09/02/18 10:11 09/02/18 08:01 - Medications Medications: Current Medications Acetazolamide (Diamox 250 Mg Tab) 250 mg PO BID [facility] Last Admin: 09/02/18 10:12 Dose: 250 mg Aspirin (Ecotrin) 81 mg PO DAILY [facility] Last Admin: 09/02/18 10:15 Dose: 81 mg Clopidogrel Bisulfate (Plavix) 75 mg PO DAILY [facility] Last Admin: 09/02/18 10:15 Dose: 75 mg Enoxaparin Sodium (Lovenox) 40 mg SC DAILY [facility] Last Admin: 08/30/18 10:39 Dose: Not Given Famotidine (Pepcid) 20 mg PO DAILY [facility] Last Admin: 09/02/18 10:12 Dose: 20 mg Isosorbide Mononitrate (Imdur Er) 30 mg PO DAILY [facility] Last Admin: 09/02/18 10:11 Dose: 30 mg Metoprolol Succinate (Toprol Xl) 100 mg PO DAILY [facility] Last Admin: 09/02/18 10:12 Dose: 100 mg Montelukast Sodium (Singulair) 10 mg PO DAILY [facility] Last Admin: 09/02/18 10:12 Dose: 10 mg Mycophenolate Mofetil (Cellcept) 500 mg PO BID [facility] Last Admin: 09/02/18 10:12 Dose: 500 mg Prednisone (Prednisone Tab) 5 mg PO DAILY [facility] Last Admin: 09/02/18 10:12 Dose: 5 mg Rosuvastatin Calcium (Crestor) 20 mg PO HS [facility] Last Admin: 09/01/18 21:33 Dose: 20 mg Sodium Bicarbonate (Sodium Bicarbonate Tab) 1,300 mg PO TID [facility] Last Admin: 09/02/18 10:11 Dose: 1,300 mg Tacrolimus (Prograf Cap) 1 mg PO QPM [facility] Last Admin: 09/01/18 17:39 Dose: 1 mg Tacrolimus (Prograf Cap) 2 mg PO DAILY [facility] Last Admin: 09/02/18 10:13 Dose: 2 mg Tiotropium [place] (Spiriva) 18 mcg INH RQ24 [facility] Last Admin: 09/02/18 07:58 Dose: Not Given - Labs Labs: 09/02/18 07:11 09/02/18 07:11 PT 11.0 SECONDS (9.7-12.2) 08/31/18 08:15 INR 1.0 08/31/18 08:15 APTT 31 SECONDS (21-34) 08/31/18 08:15
--- NOTE | 2018-09-02 10:21 | CP.PCM.PN ---
Subjective - Date & Time of Evaluation Date of Evaluation: 09/02/18 Time of Evaluation: 10:21 - Subjective Subjective: Progress note dictated # [id number] Objective - Vital Signs/Intake and Output Vital Signs (last 24 hours): Temp Pulse Resp BP Pulse Ox 97.9 F 84 20 126/78 98 09/02/18 08:01 09/02/18 10:11 09/02/18 08:01 09/02/18 10:11 09/02/18 08:01 - Medications Medications: Current Medications Acetazolamide (Diamox 250 Mg Tab) 250 mg PO BID [facility] Last Admin: 09/02/18 10:12 Dose: 250 mg Aspirin (Ecotrin) 81 mg PO DAILY [facility] Last Admin: 09/02/18 10:15 Dose: 81 mg Clopidogrel Bisulfate (Plavix) 75 mg PO DAILY [facility] Last Admin: 09/02/18 10:15 Dose: 75 mg Enoxaparin Sodium (Lovenox) 40 mg SC DAILY [facility] Last Admin: 08/30/18 10:39 Dose: Not Given Famotidine (Pepcid) 20 mg PO DAILY [facility] Last Admin: 09/02/18 10:12 Dose: 20 mg Isosorbide Mononitrate (Imdur Er) 30 mg PO DAILY [facility] Last Admin: 09/02/18 10:11 Dose: 30 mg Metoprolol Succinate (Toprol Xl) 100 mg PO DAILY [facility] Last Admin: 09/02/18 10:12 Dose: 100 mg Montelukast Sodium (Singulair) 10 mg PO DAILY [facility] Last Admin: 09/02/18 10:12 Dose: 10 mg Mycophenolate Mofetil (Cellcept) 500 mg PO BID [facility] Last Admin: 09/02/18 10:12 Dose: 500 mg Prednisone (Prednisone Tab) 5 mg PO DAILY [facility] Last Admin: 09/02/18 10:12 Dose: 5 mg Rosuvastatin Calcium (Crestor) 20 mg PO HS [facility] Last Admin: 09/01/18 21:33 Dose: 20 mg Sodium Bicarbonate (Sodium Bicarbonate Tab) 1,300 mg PO TID [facility] Last Admin: 09/02/18 10:11 Dose: 1,300 mg Tacrolimus (Prograf Cap) 1 mg PO QPM [facility] Last Admin: 09/01/18 17:39 Dose: 1 mg Tacrolimus (Prograf Cap) 2 mg PO DAILY [facility] Last Admin: 09/02/18 10:13 Dose: 2 mg Tiotropium [place] (Spiriva) 18 mcg INH RQ24 [facility] Last Admin: 09/02/18 07:58 Dose: Not Given - Labs Labs: 09/02/18 07:11 09/02/18 07:11 PT 11.0 SECONDS (9.7-12.2) 08/31/18 08:15 INR 1.0 08/31/18 08:15 APTT 31 SECONDS (21-34) 08/31/18 08:15
[2018-09-02] MEDS ORDERED: Sodium Chloride 0.45% 1,000 ML IV SCH (17:15)
[2018-09-02] MEDS ORDERED: Iodixanol 320 MG/ML 100 ML BOTTLE IV ONE (18:59)
[2018-09-02] MEDS ORDERED: Midazolam 2 MG/2 ML VIAL ONE (19:02)
--- NOTE | 2018-09-02 20:03 | CP.PCM.PN ---
Subjective - Date & Time of Evaluation Date of Evaluation: 09/02/18 Time of Evaluation: 20:02 - Subjective Subjective: s/p cardiac cath showing moderate LAD disease 35 cc IV dye used Objective - Vital Signs/Intake and Output Vital Signs (last 24 hours): Temp Pulse Resp BP Pulse Ox 98.1 F 77 20 106/70 97 09/02/18 16:00 09/02/18 16:00 09/02/18 16:00 09/02/18 16:00 09/02/18 16:00 - Medications Medications: Current Medications Acetazolamide (Diamox 250 Mg Tab) 250 mg PO BID [facility] Last Admin: 09/02/18 10:12 Dose: 250 mg Aspirin (Ecotrin) 81 mg PO DAILY [facility] Last Admin: 09/02/18 10:15 Dose: 81 mg Clopidogrel Bisulfate (Plavix) 75 mg PO DAILY [facility] Last Admin: 09/02/18 10:15 Dose: 75 mg Enoxaparin Sodium (Lovenox) 40 mg SC DAILY [facility] Last Admin: 08/30/18 10:39 Dose: Not Given Famotidine (Pepcid) 20 mg PO DAILY [facility] Last Admin: 09/02/18 10:12 Dose: 20 mg Sodium Chloride (Sodium Chloride 0.45%) 1,000 mls @ 75 mls/hr IV .[id number] [facility] Isosorbide Mononitrate (Imdur Er) 30 mg PO DAILY [facility] Last Admin: 09/02/18 10:11 Dose: 30 mg Metoprolol Succinate (Toprol Xl) 100 mg PO DAILY [facility] Last Admin: 09/02/18 10:12 Dose: 100 mg Montelukast Sodium (Singulair) 10 mg PO DAILY [facility] Last Admin: 09/02/18 10:12 Dose: 10 mg Mycophenolate Mofetil (Cellcept) 500 mg PO BID [facility] Last Admin: 09/02/18 10:12 Dose: 500 mg Prednisone (Prednisone Tab) 5 mg PO DAILY [facility] Last Admin: 09/02/18 10:12 Dose: 5 mg Rosuvastatin Calcium (Crestor) 20 mg PO HS [facility] Last Admin: 09/01/18 21:33 Dose: 20 mg Sodium Bicarbonate (Sodium Bicarbonate Tab) 1,300 mg PO TID [facility] Last Admin: 09/02/18 14:09 Dose: Not Given Tacrolimus (Prograf Cap) 1 mg PO QPM [facility] Last Admin: 10/25/18 17:39 Dose: 1 mg Tacrolimus (Prograf Cap) 2 mg PO DAILY [facility] Last Admin: 09/02/18 10:13 Dose: 2 mg Tiotropium [place] (Spiriva) 18 mcg INH RQ24 [facility] Last Admin: 09/02/18 07:58 Dose: Not Given - Labs Labs: 09/02/18 07:11 09/02/18 07:11 PT 11.0 SECONDS (9.7-12.2) 08/31/18 08:15 INR 1.0 08/31/18 08:15 APTT 31 SECONDS (21-34) 08/31/18 08:15 - Constitutional Appears: Well - Head Exam Head Exam: ATRAUMATIC, NORMAL INSPECTION, NORMOCEPHALIC - Eye Exam Eye Exam: EOMI, Normal appearance, PERRL Pupil Exam: NORMAL ACCOMODATION, PERRL - ENT Exam ENT Exam: Mucous Membranes Moist, Normal Exam - Neck Exam Neck Exam: Full ROM, Normal Inspection. absent: Lymphadenopathy - Respiratory Exam Respiratory Exam: Clear to Ausculation Bilateral, NORMAL BREATHING PATTERN - Cardiovascular Exam Cardiovascular Exam: REGULAR RHYTHM, +S1, +S2. absent: Murmur - GI/Abdominal Exam GI & Abdominal Exam: Soft, Normal Bowel Sounds. absent: Tenderness - Extremities Exam Extremities Exam: Full ROM, Normal Capillary Refill, Normal Inspection. absent: Joint Swelling, Pedal Edema - Back Exam Back Exam: NORMAL INSPECTION - Neurological Exam Neurological Exam: Alert, Awake, CN II-XII Intact, Normal Gait, Oriented x3 - Psychiatric Exam Psychiatric exam: Normal Affect, Normal Mood - Skin Skin Exam: Dry, Intact, Normal Color, Warm Assessment and Plan (1) Chest pain Assessment & Plan: s/p cath with moderate LAD disease consider FFR guided PCI ( discussed with pt ) maximize meds GDMT for CAD Status: Acute (2) Acute dyspnea Status: Acute (3) CAD S/P percutaneous coronary angioplasty Status: Chronic (4) Essential (primary) hypertension Status: Chronic
--- NOTE | 2018-09-03 00:49 | PN ---
DATE: 09/02/2018 SUBJECTIVE: The patient was seen and examined at bedside. The patient denies any chest pain or any other complaints. Awaiting for the procedure this morning. Denies any other complaints. PHYSICAL EXAMINATION: GENERAL: Middle aged female, lying in bed, in no acute distress. VITAL SIGNS: Blood pressure 126/78, pulse 84, respirations 20, temperature 97.9 degrees Fahrenheit and O2 saturations 98% on room air. HEENT: Pupils equal, round and reacting to light and accommodation. Extraocular muscles intact. No icterus. No pallor. No oral thrush. No pharyngeal congestion. NECK: Supple. No JVD. No thyromegaly. CHEST: on respiration. LUNGS: Bilateral vesicular breath sounds. No wheezing. No rhonchi. CARDIOVASCULAR SYSTEM: S1 and S2 present, regular. ABDOMEN: Soft. Nontender. Bowel sounds present. No guarding, no rigidity, no rebound tenderness noted. CENTRAL NERVOUS SYSTEM: Alert, awake, and oriented x3. No focal deficits noted. EXTREMITIES: No edema. Palpable peripheral pulses. MEDICATIONS: Diamox 250 mg p.o. b.i.d., Ecotrin 81 mg daily, Plavix 75 mg daily, Lovenox 40 mg daily, Pepcid 30 mg daily, Imdur 30 mg daily, Toprol XL 100 mg daily, Singulair 10 mg daily, Cellcept 500 mg p.o. b.i.d., prednisone 5 mg daily, Crestor 20 mg p.o. at bedtime, sodium bicarbonate 1300 mg p.o. t.i.d., half normal saline at 75 mL an hour, Prograf 1 mg p.o. every p.m. and 2 mg in the a.m., and Spiriva one inhalation daily. LABORATORY DATA: Labs from this morning; WBC 8.5, hemoglobin 11.8, hematocrit 33.6, and platelets 200. Sodium 143, potassium 3.9, chloride 113, bicarb 18, BUN 21, creatinine 1, glucose 92, calcium 9.2. LFTs within normal limits. Urine beta HCG quantitative 6.52. Urine culture from 08/30 is negative. Status post cardiac catheterization consistent with moderate LAD as documented by cardiology. ASSESSMENT AND PLAN: Middle aged female with history of coronary artery disease, status post stent placement, congenital kidney disease, status post multiple renal transplant, asthma, hypertension, hyperlipidemia, pseudotumor cerebri, partially blind, admitted for chest pain, acute coronary syndrome ruled out but in view of her risk factors and prior abnormal stress test, the patient underwent diagnostic cardiac catheterization today, which was consistent with moderate left anterior descending. Will followup with cardiology. Continue with current medication. Discussed with renal. Will continue with hydration. Will discharge the patient, when cleared by cardiology. Vania Sampson MD
--- NOTE | 2018-09-03 05:41 | CARDCATH ---
PROCEDURE DATE: 09/02/2018 INDICATIONS: Lisa is a 48-year-old female with past medical history significant for hypertension, diabetes, hyperlipidemia, end-stage renal disease, status post renal transplant, who had CAD with two stents placed to the LAD. The patient had undergone a stress test last year, which had a reversible ischemia in the LAD territory. She was brought to the [facility] for evaluation of symptoms of unstable angina and prior positive stress test. PROCEDURE PERFORMED: Left heart catheterization with selective left and right coronary angiogram via 6-Kiswahili right femoral arterial access. Left ventricular end-diastolic pressure assessment. No left ventriculogram performed secondary to conservation of renal diet. 35 mL of IV dye used for renal protection. ANGIOGRAPHIC FINDINGS: Left main is a large-sized vessel, bifurcates into LAD and circ. Left circumflex is a large-sized vessel and free of any obstructive disease, runs in the AV groove, gives off a large size obtuse marginal branch which distally trifurcates into three further branches. Left anterior descending artery had two stents in the proximal and mid segment. The proximal stent has a 50% descending stenosis. The mid stent has 30% descending stenosis in the proximal edge of the mid stent, and the vessel in between the two stents had about 65% stenosis. Distal vessel is free of any obstructive disease. LAD gives off a diagonal branch, free of any obstructive disease. RCA is large-sized vessel, gives off small with PDA and PLV branches, free of any obstructive disease. Left ventricular end-diastolic pressure was 20 mmHg. IMPRESSION: Moderate mid left ventricular artery disease. RECOMMENDATION: Aggressive medical management and risk factor modification. If the patient has recurrent ischemic symptom on maximum medical therapy, consider PCI stenting with FFR guidance. Bautista Damon MD
[2018-09-03 07:30] LABS: BASO % 0.4 % (0.0-2.0); EOS # 0.2 K/uL (0.0-0.7); LYMPH % 22.9 % (20.0-40.0); MEAN CELL VOLUME 87.1 fL (81.0-99.0); MEAN CORPUSCULAR HEMOGLOBIN 30.5 pg (27.0-31.0); MEAN PLATELET VOLUME 9.6 fL (7.2-11.7); MONO # 0.7 K/uL (0.0-0.8); MONO % 8.2 % (0.0-10.0); NEUT # 5.9 K/uL (1.8-7.0); NEUT % 66.5 % (50.0-75.0); RBC 3.59 Mil/uL (3.80-5.20); RED CELL DISTRIBUTION WIDTH 14.4 % (11.5-14.5); WHITE BLOOD COUNT 8.8 K/uL (4.8-10.8)
[2018-09-03 07:40] LABS: ALB/GLOB RATIO 1.3 (1.0-2.1); ALBUMIN 3.5 g/dL (3.5-5.0); ALT/SGPT 26 U/L (9-52); AST/SGOT 14 U/L (14-36); BLOOD UREA NITROGEN 21 mg/dL (7-17); CALCIUM 8.8 mg/dl (8.6-10.4); GFR NON-AFRICAN AMERICAN 60
[2018-09-03] MEDS: Tiotropium 18 mcg Cap For Inhalation INH SCH (08:00)
--- NOTE | 2018-09-03 09:10 | CP.PCM.PN ---
Subjective - Date & Time of Evaluation Date of Evaluation: 09/03/18 Time of Evaluation: 09:10 - Subjective Subjective: Progress note dictated #[id number] Objective - Vital Signs/Intake and Output Vital Signs (last 24 hours): Temp Pulse Resp BP Pulse Ox 97.6 F 77 20 113/70 98 09/03/18 00:00 09/03/18 00:00 09/03/18 00:00 09/03/18 05:30 09/03/18 00:00 - Medications Medications: Current Medications Acetazolamide (Diamox 250 Mg Tab) 250 mg PO BID [facility] Last Admin: 09/02/18 21:31 Dose: 250 mg Aspirin (Ecotrin) 81 mg PO DAILY [facility] Last Admin: 09/02/18 10:15 Dose: 81 mg Clopidogrel Bisulfate (Plavix) 75 mg PO DAILY [facility] Last Admin: 09/02/18 10:15 Dose: 75 mg Enoxaparin Sodium (Lovenox) 40 mg SC DAILY [facility] Last Admin: 08/30/18 10:39 Dose: Not Given Famotidine (Pepcid) 20 mg PO DAILY [facility] Last Admin: 09/02/18 10:12 Dose: 20 mg Sodium Chloride (Sodium Chloride 0.45%) 1,000 mls @ 75 mls/hr IV .[id number] [facility] Last Admin: 09/02/18 20:40 Dose: Not Given Isosorbide Mononitrate (Imdur Er) 30 mg PO DAILY [facility] Last Admin: 09/02/18 10:11 Dose: 30 mg Metoprolol Succinate (Toprol Xl) 100 mg PO DAILY [facility] Last Admin: 09/02/18 10:12 Dose: 100 mg Montelukast Sodium (Singulair) 10 mg PO DAILY [facility] Last Admin: 09/02/18 10:12 Dose: 10 mg Mycophenolate Mofetil (Cellcept) 500 mg PO BID [facility] Last Admin: 09/02/18 21:30 Dose: 500 mg Prednisone (Prednisone Tab) 5 mg PO DAILY [facility] Last Admin: 09/02/18 10:12 Dose: 5 mg Rosuvastatin Calcium (Crestor) 20 mg PO HS [facility] Last Admin: 09/02/18 21:30 Dose: 20 mg Sodium Bicarbonate (Sodium Bicarbonate Tab) 1,300 mg PO TID [facility] Last Admin: 09/02/18 20:40 Dose: Not Given Tacrolimus (Prograf Cap) 1 mg PO QPM [facility] Last Admin: 09/02/18 21:29 Dose: 1 mg Tacrolimus (Prograf Cap) 2 mg PO DAILY [facility] Last Admin: 09/02/18 10:13 Dose: 2 mg Tiotropium [place] (Spiriva) 18 mcg INH RQ24 [facility] Last Admin: 09/02/18 07:58 Dose: Not Given - Labs Labs: 09/03/18 07:14 09/03/18 07:14 PT 11.0 SECONDS (9.7-12.2) 08/31/18 08:15 INR 1.0 08/31/18 08:15 APTT 31 SECONDS (21-34) 08/31/18 08:15
[2018-09-03] MEDS: Metoprolol Succinate 50 mg XL Tab PO SCH (10:53)
--- NOTE | 2018-09-03 14:53 | CP.PCM.PN ---
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 f/u prograf level s/p cath yesterday renal function remains stable BP control with meds as ordered. Maintain hemodynamics stable. Avoid hypotension. Monitor Input/Output, daily weights and renal function with basic metabolic panel will d/c ivf hematuria: no infection noted, + stent in ureter - ? related to that . will need f/u w/ transplant center. 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 Vitals reviewed and noted as below Head; Atraumatic, normocephalic ENT: no ulcers no thrush. Tongue is midline. Oropharynx: no rash or ulcers. EYES: Pupils are equal, round and reactive to light accommodation. Eye muscles and extraocular movement intact. Sclera is anicteric. Neck; supple no lymphadenopathy, no thyromegaly or bruit Lungs: Normal respiratory rate/effort. Breath sounds bilateral equal and clear Heart: Normal rate. s1s2 normal. No rub or gallop. Extremities: no edema. No varicose veins Neurological: Patient is alert, awake and oriented to person, place and time. No focal deficit. Strength bilateral appropriate and equal Skin: Warm and dry. Normal turgor. No rash. Palpitation: Normal elasticity for age Abdomen: Abdomen is soft. Bowel sounds +. There is no abdominal tenderness, no guarding/rigidity no organomegaly, no further discomfort over LLQ allograft Psych: normal insight and normal affect/mood MSK: no joint tenderness or swelling. Digits and nails normal, no deformity : kidney or bladder not palpable Objective - Vital Signs/Intake and Output Vital Signs (last 24 hours): Temp Pulse Resp BP Pulse Ox 97.6 F 98 H 20 108/72 98 09/03/18 00:00 09/03/18 10:50 09/03/18 00:00 09/03/18 10:50 09/03/18 00:00 - Medications Medications: Current Medications Acetazolamide (Diamox 250 Mg Tab) 250 mg PO BID [facility] Last Admin: 09/03/18 10:52 Dose: 250 mg Aspirin (Ecotrin) 81 mg PO DAILY [facility] Last Admin: 09/03/18 10:51 Dose: 81 mg Clopidogrel Bisulfate (Plavix) 75 mg PO DAILY [facility] Last Admin: 09/03/18 10:52 Dose: 75 mg Enoxaparin Sodium (Lovenox) 40 mg SC DAILY [facility] Last Admin: 08/30/18 10:39 Dose: Not Given Famotidine (Pepcid) 20 mg PO DAILY [facility] Last Admin: 09/03/18 10:51 Dose: 20 mg Sodium Chloride (Sodium Chloride 0.45%) 1,000 mls @ 75 mls/hr IV .[id number] [facility] Last Admin: 09/02/18 20:40 Dose: Not Given Isosorbide Mononitrate (Imdur Er) 30 mg PO DAILY [facility] Last Admin: 09/03/18 10:51 Dose: 30 mg Metoprolol Succinate (Toprol Xl) 100 mg PO DAILY [facility] Last Admin: 09/03/18 10:53 Dose: Not Given Montelukast Sodium (Singulair) 10 mg PO DAILY [facility] Last Admin: 09/03/18 10:52 Dose: 10 mg Mycophenolate Mofetil (Cellcept) 500 mg PO BID [facility] Last Admin: 09/03/18 10:52 Dose: 500 mg Prednisone (Prednisone Tab) 5 mg PO DAILY [facility] Last Admin: 09/03/18 10:51 Dose: 5 mg Rosuvastatin Calcium (Crestor) 20 mg PO HS [facility] Last Admin: 09/02/18 21:30 Dose: 20 mg Sodium Bicarbonate (Sodium Bicarbonate Tab) 1,300 mg PO TID [facility] Last Admin: 09/03/18 13:33 Dose: 1,300 mg Tacrolimus (Prograf Cap) 1 mg PO QPM [facility] Last Admin: 09/02/18 21:29 Dose: 1 mg Tacrolimus (Prograf Cap) 2 mg PO DAILY [facility] Last Admin: 09/03/18 10:52 Dose: 2 mg Tiotropium [place] (Spiriva) 18 mcg INH RQ24 [facility] Last Admin: 09/03/18 08:00 Dose: Not Given - Labs Labs: 09/03/18 07:14 09/03/18 07:14 PT 11.0 SECONDS (9.7-12.2) 08/31/18 08:15 INR 1.0 08/31/18 08:15 APTT 31 SECONDS (21-34) 08/31/18 08:15
--- NOTE | 2018-09-03 19:50 | PN ---
DATE: 09/03/2018 SUBJECTIVE: The patient was seen and examined at bedside. The patient claims that she did not remember whatever Dr. Damon was discussing with her regarding the further treatment plan for moderate disease of the LAD. Denies any chest pain, denies any other complaints. PHYSICAL EXAMINATION: GENERAL: A middle-aged female, lying in bed, not in any acute distress. VITAL SIGNS: Blood pressure 108/72, pulse 84, respirations 20, temperature 97.6 degrees Fahrenheit, and O2 saturations 98% on room air. HEENT: Pupils equal, round, and reacting to light and accommodation. Extraocular muscles are intact, no icterus, no pallor. NECK: Supple, no JVD. LUNGS: Bilateral vesicular breath sounds, no wheezing, no rhonchi. CARDIOVASCULAR SYSTEM: S1 and S2 present, regular. ABDOMEN: Soft and nontender. Bowel sounds present. No guarding, no rigidity, no rebound tenderness noted. CENTRAL NERVOUS SYSTEM: Alert, awake, and oriented x 3. No focal deficits noted. EXTREMITIES: No edema, palpable peripheral pulses. MEDICATIONS: Diamox 250 mg p.o. b.i.d., aspirin 81 mg daily, Plavix 75 mg daily, Lovenox 40 mg subcu daily, Pepcid 20 mg daily, Imdur 30 mg daily, metoprolol 100 mg daily, Singulair 10 mg daily, Cellcept 500 mg p.o. b.i.d., prednisone 5 mg daily, Crestor 20 mg p.o. at bedtime, sodium bicarbonate 1300 mg p.o. t.i.d., Prograf 1 mg p.o. in the evening and 2 mg in the morning, Spiriva 1 inhalation daily. LABORATORY DATA: Labs from this morning; WBC 8.8, hemoglobin 11, hematocrit 31.3, platelets 193, sodium 142, potassium 3.8, chloride 113, bicarbonate 18, BUN 21, creatinine 1 and glucose 97. LFTs within normal limits. ASSESSMENT AND PLAN: A middle-aged female with coronary artery disease, status post stent placement, congenital kidney disease, status post multiple renal transplant, pseudotumor cerebri, intracranial hemorrhage, partially blind and asthma, admitted for chest pain, acute coronary syndrome ruled out, but the patient underwent cardiac catheterization consistent with moderate disease of the left anterior descending as documented by cardiology. We will follow up with cardiology regarding further treatment plan. 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 We will continue with current medications. Her renal function remained stable after the procedure. We will plan discharging the patient when cleared by cardiology. Vania Sampson MD
[2018-09-04 08:16] LABS: BASO % 0.4 % (0.0-2.0); EOS # 0.2 K/uL (0.0-0.7); EOS % 1.9 % (0.0-4.0); HEMOGLOBIN 11.8 g/dL (11.0-16.0); LYMPH # 2.6 K/uL (1.0-4.3); LYMPH % 24.2 % (20.0-40.0); MEAN CELL VOLUME 86.7 fL (81.0-99.0); MEAN CORPUSCULAR HEMOGLOBIN 29.9 pg (27.0-31.0); MEAN CORPUSCULAR HGB CONC 34.5 g/dL (33.0-37.0); MEAN PLATELET VOLUME 9.6 fL (7.2-11.7); MONO # 0.8 K/uL (0.0-0.8); MONO % 7.2 % (0.0-10.0); NEUT # 7.1 K/uL (1.8-7.0); NEUT % 66.3 % (50.0-75.0); RBC 3.94 Mil/uL (3.80-5.20); RED CELL DISTRIBUTION WIDTH 14.2 % (11.5-14.5); WHITE BLOOD COUNT 10.7 K/uL (4.8-10.8)
[2018-09-04 08:43] LABS: ALB/GLOB RATIO 1.4 (1.0-2.1); ALT/SGPT 26 U/L (9-52); AST/SGOT 23 U/L (14-36); BLOOD UREA NITROGEN 22 mg/dL (7-17); CALCIUM 9.7 mg/dl (8.6-10.4); GFR NON-AFRICAN AMERICAN > 60
[2018-09-04] MEDS: Tiotropium 18 mcg Cap For Inhalation INH SCH (08:44)
[2018-09-04] MEDS: Metoprolol Succinate 50 mg XL Tab PO SCH (10:37)
--- NOTE | 2018-09-04 12:59 | CP.PCM.PN ---
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 f/u prograf level for possible cath again tomorrow? not clear if repeat cath is decided please start 0.9% NS at 75 cc/hr 12 hrs pre procedure BP control with meds as ordered. Maintain hemodynamics stable. Avoid hypotension. Monitor Input/Output, daily weights and renal function with basic metabolic panel hematuria: no infection noted, + stent in ureter - ? related to that . will n eed f/u w/ transplant center. continue with sodium bicarb Dose meds/antibiotics for GFR >60.Avoid nephrotoxins/NSAIDs Glycemic control Further work up/management as per primary team S: feels good no complaints Physical Examination: General Appearance: Comfortable, in no acute respiratory distress, co-operative . Vitals reviewed and noted as below Head; Atraumatic, normocephalic ENT: no ulcers no thrush. Tongue is midline. Oropharynx: no rash or ulcers. EYES: Pupils are equal, round and reactive to light accommodation. Eye muscles and extraocular movement intact. Sclera is anicteric. Neck; supple no lymphadenopathy, no thyromegaly or bruit Lungs: Normal respiratory rate/effort. Breath sounds bilateral equal and clear Heart: Normal rate. s1s2 normal. No rub or gallop. Extremities: no edema. No varicose veins Neurological: Patient is alert, awake and oriented to person, place and time. No focal deficit. Strength bilateral appropriate and equal Skin: Warm and dry. Normal turgor. No rash. Palpitation: Normal elasticity for age Abdomen: Abdomen is soft. Bowel sounds +. There is no abdominal tenderness, no guarding/rigidity no organomegaly, no further discomfort over LLQ allograft Psych: normal insight and normal affect/mood MSK: no joint tenderness or swelling. Digits and nails normal, no deformity : kidney or bladder not palpable Objective - Vital Signs/Intake and Output Vital Signs (last 24 hours): Temp Pulse Resp BP Pulse Ox 97.7 F 85 20 115/72 98 09/04/18 08:00 09/04/18 10:34 09/04/18 08:00 09/04/18 10:34 09/04/18 08:00 - Medications Medications: Current Medications Acetazolamide (Diamox 250 Mg Tab) 250 mg PO BID [facility] Last Admin: 09/04/18 10:37 Dose: 250 mg Aspirin (Ecotrin) 81 mg PO DAILY [facility] Last Admin: 09/04/18 10:37 Dose: 81 mg Clopidogrel Bisulfate (Plavix) 75 mg PO DAILY [facility] Last Admin: 09/04/18 10:37 Dose: 75 mg Enoxaparin Sodium (Lovenox) 40 mg SC DAILY [facility] Last Admin: 08/30/18 10:39 Dose: Not Given Famotidine (Pepcid) 20 mg PO DAILY [facility] Last Admin: 09/04/18 10:37 Dose: 20 mg Isosorbide Mononitrate (Imdur Er) 30 mg PO DAILY [facility] Last Admin: 09/04/18 10:36 Dose: 30 mg Metoprolol Succinate (Toprol Xl) 100 mg PO DAILY [facility] Last Admin: 09/04/18 10:37 Dose: 100 mg Montelukast Sodium (Singulair) 10 mg PO DAILY [facility] Last Admin: 09/04/18 10:37 Dose: 10 mg Mycophenolate Mofetil (Cellcept) 500 mg PO BID [facility] Last Admin: 09/04/18 10:37 Dose: 500 mg Prednisone (Prednisone Tab) 5 mg PO DAILY [facility] Last Admin: 09/04/18 10:37 Dose: 5 mg Rosuvastatin Calcium (Crestor) 20 mg PO HS [facility] Last Admin: 09/03/18 21:35 Dose: 20 mg Sodium Bicarbonate (Sodium Bicarbonate Tab) 1,300 mg PO TID [facility] Last Admin: 09/04/18 10:37 Dose: 1,300 mg Tacrolimus (Prograf Cap) 1 mg PO QPM [facility] Last Admin: 09/03/18 17:49 Dose: 1 mg Tacrolimus (Prograf Cap) 2 mg PO DAILY [facility] Last Admin: 09/04/18 10:37 Dose: 2 mg Tiotropium [place] (Spiriva) 18 mcg INH RQ24 [facility] Last Admin: 09/04/18 08:44 Dose: Not Given - Labs Labs: 09/04/18 08:07 09/04/18 08:07 PT 11.0 SECONDS (9.7-12.2) 08/31/18 08:15 INR 1.0 08/31/18 08:15 APTT 31 SECONDS (21-34) 08/31/18 08:15
--- NOTE | 2018-09-04 19:05 | CP.PCM.PN ---
Subjective - Date & Time of Evaluation Date of Evaluation: 09/04/18 Time of Evaluation: 19:05 - Subjective Subjective: Progress note dictated #[id number] Objective - Vital Signs/Intake and Output Vital Signs (last 24 hours): Temp Pulse Resp BP Pulse Ox 97.7 F 4 L 20 115/72 98 09/04/18 08:00 09/04/18 16:00 09/04/18 08:00 09/04/18 10:34 09/04/18 08:00 - Medications Medications: Current Medications Acetazolamide (Diamox 250 Mg Tab) 250 mg PO BID [facility] Last Admin: 09/04/18 17:35 Dose: 250 mg Aspirin (Ecotrin) 81 mg PO DAILY [facility] Last Admin: 09/04/18 10:37 Dose: 81 mg Clopidogrel Bisulfate (Plavix) 75 mg PO DAILY [facility] Last Admin: 09/04/18 10:37 Dose: 75 mg Enoxaparin Sodium (Lovenox) 40 mg SC DAILY [facility] Last Admin: 08/30/18 10:39 Dose: Not Given Famotidine (Pepcid) 20 mg PO DAILY [facility] Last Admin: 09/04/18 10:37 Dose: 20 mg Isosorbide Mononitrate (Imdur Er) 30 mg PO DAILY [facility] Last Admin: 09/04/18 10:36 Dose: 30 mg Metoprolol Succinate (Toprol Xl) 100 mg PO DAILY [facility] Last Admin: 09/04/18 10:37 Dose: 100 mg Montelukast Sodium (Singulair) 10 mg PO DAILY [facility] Last Admin: 09/04/18 10:37 Dose: 10 mg Mycophenolate Mofetil (Cellcept) 500 mg PO BID [facility] Last Admin: 09/04/18 17:35 Dose: 500 mg Prednisone (Prednisone Tab) 5 mg PO DAILY [facility] Last Admin: 09/04/18 10:37 Dose: 5 mg Rosuvastatin Calcium (Crestor) 20 mg PO HS [facility] Last Admin: 09/03/18 21:35 Dose: 20 mg Sodium Bicarbonate (Sodium Bicarbonate Tab) 1,300 mg PO TID [facility] Last Admin: 09/04/18 17:35 Dose: 1,300 mg Tacrolimus (Prograf Cap) 1 mg PO QPM [facility] Last Admin: 09/04/18 17:35 Dose: 1 mg Tacrolimus (Prograf Cap) 2 mg PO DAILY [facility] Last Admin: 09/04/18 10:37 Dose: 2 mg Tiotropium [place] (Spiriva) 18 mcg INH RQ24 [facility] Last Admin: 09/04/18 08:44 Dose: Not Given - Labs Labs: 09/04/18 08:07 09/04/18 08:07 PT 11.0 SECONDS (9.7-12.2) 08/31/18 08:15 INR 1.0 08/31/18 08:15 APTT 31 SECONDS (21-34) 08/31/18 08:15
--- NOTE | 2018-09-05 02:45 | PN ---
DATE: 09/04/2018 SUBJECTIVE: The patient was seen and examined at bedside. Offers no new complaints. Denies any chest pain. PHYSICAL EXAMINATION: GENERAL: Middle-aged female, lying in bed, in no acute distress. VITAL SIGNS: Blood pressure 99/61, pulse 84, respirations 20, temperature 97.9 degrees Fahrenheit, and O2 saturation is 98% on room air. HEENT: Pupils equal, round, and reacting to light and accommodation. Extraocular muscles are intact. No icterus. No pallor. No oral thrush. No pharyngeal congestion. NECK: Supple. No JVD. LUNGS: Bilateral vesicular breath sounds. No wheezing. No rhonchi. CARDIOVASCULAR SYSTEM: S1 and S2 present, regular. ABDOMEN: Soft. Nontender. Bowel sounds present. No guarding. No rigidity. No rebound tenderness noted. CENTRAL NERVOUS SYSTEM: Alert, awake, and oriented x3. No focal deficits noted. EXTREMITIES: No edema. Palpable peripheral pulses. MEDICATIONS: Include Diamox 250 mg b.i.d., aspirin 81 mg daily, Plavix 75 mg daily, Lovenox 40 mg subcu daily, Pepcid 20 mg daily, Imdur 30 mg daily, Toprol-XL 100 mg daily, Singulair 10 mg daily, CellCept 500 mg b.i.d., prednisone 5 mg daily, Crestor 10 mg p.o at bedtime, sodium bicarbonate 1300 mg p.o. t.i.d., Prograf 1 mg in the night and 2 mg in the morning, Spiriva 18 mcg one inhalation daily. LABORATORY DATA: Labs from this morning: WBC 10.7, hemoglobin 11.8, hematocrit 34.2, and platelets 206. Sodium 145, potassium 3.8, chloride 112, bicarbonate 18, BUN 22, creatinine 0.9, and glucose 90. LFTs within normal limits. ASSESSMENT AND PLAN: Middle-aged female with coronary artery disease, status post stent placement, hypertension, hyperlipidemia, intracranial hemorrhage history, pseudotumor cerebri, congenital kidney disease, status post multiple renal transplants, on immunosuppressive therapy. Admitted for chest pain, acute coronary syndrome ruled out, but cardiac catheterization reveals moderate disease of the left anterior descending for which percutaneous coronary intervention is recommended by Cardiology. 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 We will follow up with Cardiology. When cleared by Cardiology, we will plan discharging the patient to home. Vania Sampson MD
[2018-09-05] MEDS: Tiotropium 18 mcg Cap For Inhalation INH SCH (07:35)
--- NOTE | 2018-09-05 08:06 | CP.PCM.PN ---
<Marco Neff - Last Filed: 09/05/18 17:28> Subjective - Date & Time of Evaluation Date of Evaluation: 09/05/18 Time of Evaluation: 09:30 - Subjective Subjective: Marco Neff PGY-[address] Damon, Cardiology Patient seen and evaluated at bedside. No acute events overnight. Patient reports persistent palpitations and dizziness even at rest. Patient denies chest of pain and shortness of breath. Objective - Vital Signs/Intake and Output Vital Signs (last 24 hours): Temp Pulse Resp BP Pulse Ox 98.0 F 81 20 105/68 97 09/05/18 07:05 09/05/18 07:05 09/05/18 07:05 09/05/18 07:05 09/05/18 07:05 Intake and Output: 09/05/18 09/05/18 06:59 18:59 Intake Total 500 Balance 500 - Medications Medications: Current Medications Acetazolamide (Diamox 250 Mg Tab) 250 mg PO BID [facility] Last Admin: 09/04/18 17:35 Dose: 250 mg Aspirin (Ecotrin) 81 mg PO DAILY [facility] Last Admin: 09/04/18 10:37 Dose: 81 mg Clopidogrel Bisulfate (Plavix) 75 mg PO DAILY [facility] Last Admin: 09/04/18 10:37 Dose: 75 mg Enoxaparin Sodium (Lovenox) 40 mg SC DAILY [facility] Last Admin: 08/30/18 10:39 Dose: Not Given Famotidine (Pepcid) 20 mg PO DAILY [facility] Last Admin: 09/04/18 10:37 Dose: 20 mg Isosorbide Mononitrate (Imdur Er) 30 mg PO DAILY [facility] Last Admin: 09/04/18 10:36 Dose: 30 mg Metoprolol Succinate (Toprol Xl) 100 mg PO DAILY [facility] Last Admin: 09/04/18 10:37 Dose: 100 mg Montelukast Sodium (Singulair) 10 mg PO DAILY [facility] Last Admin: 09/04/18 10:37 Dose: 10 mg Mycophenolate Mofetil (Cellcept) 500 mg PO BID [facility] Last Admin: 09/04/18 17:35 Dose: 500 mg Prednisone (Prednisone Tab) 5 mg PO DAILY [facility] Last Admin: 09/04/18 10:37 Dose: 5 mg Rosuvastatin Calcium (Crestor) 20 mg PO HS [facility] Last Admin: 10/28/18 21:19 Dose: 20 mg Sodium Bicarbonate (Sodium Bicarbonate Tab) 1,300 mg PO TID [facility] Last Admin: 09/04/18 17:35 Dose: 1,300 mg Tacrolimus (Prograf Cap) 1 mg PO QPM [facility] Last Admin: 09/04/18 17:35 Dose: 1 mg Tacrolimus (Prograf Cap) 2 mg PO DAILY [facility] Last Admin: 09/04/18 10:37 Dose: 2 mg Tiotropium [place] (Spiriva) 18 mcg INH RQ24 [facility] Last Admin: 09/04/18 08:44 Dose: Not Given - Labs Labs: 09/04/18 08:07 09/04/18 08:07 PT 11.0 SECONDS (9.7-12.2) 08/31/18 08:15 INR 1.0 08/31/18 08:15 APTT 31 SECONDS (21-34) 08/31/18 08:15 - Additional Findings Additional findings: - Constitutional Appears: Well - Head Exam Head Exam: ATRAUMATIC, NORMAL INSPECTION, NORMOCEPHALIC - Eye Exam Eye Exam: EOMI, Normal appearance, PERRL Pupil Exam: NORMAL ACCOMODATION, PERRL - ENT Exam ENT Exam: Mucous Membranes Moist, Normal Exam - Neck Exam Neck Exam: Full ROM, Normal Inspection. absent: Lymphadenopathy - Respiratory Exam Respiratory Exam: Clear to Ausculation Bilateral, NORMAL BREATHING PATTERN - Cardiovascular Exam Cardiovascular Exam: REGULAR RHYTHM, +S1, +S2, Tachycardia. absent: Murmur - GI/Abdominal Exam GI & Abdominal Exam: Soft, Normal Bowel Sounds. absent: Tenderness - Extremities Exam Extremities Exam: Full ROM, Normal Capillary Refill, Normal Inspection. absent: Joint Swelling, Pedal Edema - Back Exam Back Exam: NORMAL INSPECTION - Neurological Exam Neurological Exam: Alert, Awake, CN II-XII Intact, Normal Gait, Oriented x3 - Psychiatric Exam Psychiatric exam: Normal Affect, Normal Mood - Skin Skin Exam: Dry, Intact, Normal Color, Warm Assessment and Plan - Assessment and Plan (Free Text) Assessment: Assessment: 48 F with PMHx of multiple renal transplants, CAD with 2 stents, cardiac cath 2 years ago and an abnormal stress test last year who presents with complaints of chest pain. S/p cardiac cath on 09/02 which showed moderate LAD disease. Chest pain, palpitations S/P Cardiac cath Medical management vs FFR PCI Call made to primary wedger Dr. Marlow. Discussion with PEDRO LUIS Martínez regarding future care. Will leave decision to patient regarding outpatient follow up vs inpatient FFR PCI. CAD s/p angioplasty chronic medical management, dual antiplatelet therapy Essential HTN c/w medical management Patient seen, case reviewed. Further recs per Dr. Damon. Marco Neff, PGY-1 <Bautista Damon - Last Filed: 09/05/18 19:05> Objective - Vital Signs/Intake and Output Vital Signs (last 24 hours): Temp Pulse Resp BP Pulse Ox 97.7 F 75 20 102/64 97 09/05/18 15:00 09/05/18 15:56 09/05/18 15:00 09/05/18 15:00 09/05/18 15:00 - Medications Medications: Current Medications Acetazolamide (Diamox 250 Mg Tab) 250 mg PO BID [facility] Last Admin: 09/05/18 17:09 Dose: 250 mg Aspirin (Ecotrin) 81 mg PO DAILY [facility] Last Admin: 09/05/18 09:41 Dose: 81 mg Clopidogrel Bisulfate (Plavix) 75 mg PO DAILY [facility] Last Admin: 09/05/18 09:40 Dose: 75 mg Enoxaparin Sodium (Lovenox) 40 mg SC DAILY [facility] Last Admin: 08/30/18 10:39 Dose: Not Given Famotidine (Pepcid) 20 mg PO DAILY [facility] Last Admin: 09/05/18 09:41 Dose: 20 mg Isosorbide Mononitrate (Imdur Er) 30 mg PO DAILY [facility] Last Admin: 09/05/18 09:40 Dose: 30 mg Metoprolol Succinate (Toprol Xl) 100 mg PO DAILY [facility] Last Admin: 09/05/18 09:41 Dose: 100 mg Montelukast Sodium (Singulair) 10 mg PO DAILY [facility] Last Admin: 09/05/18 09:41 Dose: 10 mg Mycophenolate Mofetil (Cellcept) 500 mg PO BID [facility] Last Admin: 09/05/18 17:09 Dose: 500 mg Prednisone (Prednisone Tab) 5 mg PO DAILY [facility] Last Admin: 09/05/18 09:40 Dose: 5 mg Rosuvastatin Calcium (Crestor) 20 mg PO HS [facility] Last Admin: 09/04/18 21:19 Dose: 20 mg Sodium Bicarbonate (Sodium Bicarbonate Tab) 1,300 mg PO TID [facility] Last Admin: 09/05/18 17:09 Dose: 1,300 mg Tacrolimus (Prograf Cap) 1 mg PO QPM [facility] Last Admin: 09/05/18 17:10 Dose: 1 mg Tacrolimus (Prograf Cap) 2 mg PO DAILY [facility] Last Admin: 09/05/18 09:41 Dose: 2 mg Tiotropium [place] (Spiriva) 18 mcg INH RQ24 [facility] Last Admin: 09/05/18 07:35 Dose: Not Given - Labs Labs: 09/04/18 08:07 09/04/18 08:07 PT 11.0 SECONDS (9.7-12.2) 08/31/18 08:15 INR 1.0 08/31/18 08:15 APTT 31 SECONDS (21-34) 08/31/18 08:15 Assessment and Plan (1) Chest pain Status: Acute (2) Acute dyspnea Status: Acute (3) CAD S/P percutaneous coronary angioplasty Status: Chronic (4) Essential (primary) hypertension Status: Chronic Attending/Attestation - Attestation I have personally seen and examined this patient.: Yes I have fully participated in the care of the patient.: Yes I have reviewed all pertinent clinical information, including history, physical exam and plan: Yes Notes (Text): 09/05/18 19:04 pt would like to go home tomorrow and have outpt PCI of LAD plan of care discussed with primary wedger at [facility] home on maximal medical therapy
--- NOTE | 2018-09-05 08:27 | CARD ---
APPROVED REPORT Date of service: 08/29/2018 EKG Measurement Heart [id number] HI 148P [id number] <Conclusion> Suspect arm lead reversal, interpretation assumes no reversal Normal sinus rhythm Inferior infarct, age undetermined Anterolateral infarct, age undetermined Abnormal ECG
[2018-09-05] MEDS: Metoprolol Succinate 50 mg XL Tab PO SCH (09:41)
--- NOTE | 2018-09-05 10:48 | CP.PCM.PN ---
Subjective - Date & Time of Evaluation Date of Evaluation: 09/05/18 Time of Evaluation: 10:48 - Subjective Subjective: Progress note dictated #[id number] Objective - Vital Signs/Intake and Output Vital Signs (last 24 hours): Temp Pulse Resp BP Pulse Ox 98.0 F 99 H 20 121/71 97 09/05/18 07:05 09/05/18 09:36 09/05/18 07:05 09/05/18 09:36 09/05/18 07:05 Intake and Output: 09/05/18 09/05/18 06:59 18:59 Intake Total 500 Balance 500 - Medications Medications: Current Medications Acetazolamide (Diamox 250 Mg Tab) 250 mg PO BID [facility] Last Admin: 09/05/18 09:42 Dose: 250 mg Aspirin (Ecotrin) 81 mg PO DAILY [facility] Last Admin: 09/05/18 09:41 Dose: 81 mg Clopidogrel Bisulfate (Plavix) 75 mg PO DAILY [facility] Last Admin: 09/05/18 09:40 Dose: 75 mg Enoxaparin Sodium (Lovenox) 40 mg SC DAILY [facility] Last Admin: 08/30/18 10:39 Dose: Not Given Famotidine (Pepcid) 20 mg PO DAILY [facility] Last Admin: 09/05/18 09:41 Dose: 20 mg Isosorbide Mononitrate (Imdur Er) 30 mg PO DAILY [facility] Last Admin: 09/05/18 09:40 Dose: 30 mg Metoprolol Succinate (Toprol Xl) 100 mg PO DAILY [facility] Last Admin: 09/05/18 09:41 Dose: 100 mg Montelukast Sodium (Singulair) 10 mg PO DAILY [facility] Last Admin: 09/05/18 09:41 Dose: 10 mg Mycophenolate Mofetil (Cellcept) 500 mg PO BID [facility] Last Admin: 09/05/18 09:42 Dose: 500 mg Prednisone (Prednisone Tab) 5 mg PO DAILY [facility] Last Admin: 09/05/18 09:40 Dose: 5 mg Rosuvastatin Calcium (Crestor) 20 mg PO HS [facility] Last Admin: 09/04/18 21:19 Dose: 20 mg Sodium Bicarbonate (Sodium Bicarbonate Tab) 1,300 mg PO TID [facility] Last Admin: 09/05/18 09:41 Dose: 1,300 mg Tacrolimus (Prograf Cap) 1 mg PO QPM [facility] Last Admin: 09/04/18 17:35 Dose: 1 mg Tacrolimus (Prograf Cap) 2 mg PO DAILY [facility] Last Admin: 09/05/18 09:41 Dose: 2 mg Tiotropium [place] (Spiriva) 18 mcg INH RQ24 [facility] Last Admin: 09/05/18 07:35 Dose: Not Given - Labs Labs: 09/04/18 08:07 09/04/18 08:07 PT 11.0 SECONDS (9.7-12.2) 08/31/18 08:15 INR 1.0 08/31/18 08:15 APTT 31 SECONDS (21-34) 08/31/18 08:15
--- NOTE | 2018-09-05 14:40 | CP.PCM.PN ---
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 sent prograf level BP control with meds as ordered. Maintain hemodynamics stable. Avoid hypotension. Monitor Input/Output, daily weights and renal function with basic metabolic panel pt undergoing cardiac work up, if planned for further coronary angiogram. continue with IVF as NS @ 100 ml/hr to reduce the risk of DANI hematuria: will order further work up: repeat UA, sonogram and BK virus PCR, urine c/s. if pt planned for d/c home soon, then recommend outpt early f/up with her transplant center within next few days continue with sodium bicarb Dose meds/antibiotics for GFR >60.Avoid nephrotoxins/NSAIDs Glycemic control Further work up/management as per primary team Thanks for allowing me to participate in care of your patient. Will follow patient with you. Please call if any Qs. 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 renal consult for transplant management Denies OTC/herbal meds or NSAIDs No recent iodinated contrast exposure. No obvious episodes of low BP. she reports urine reddish in color for last 2 days. no associated chills or fever or dysuria. ROS: Cardiovascular: No chest pain at present Pulmonary: No shortness of breath Gastrointestinal: denies abdominal pain No nausea. No vomiting. Genitourinary: No pain while urinating. initially c/o blood in urine but resolved now. All other negative except as mentioned in HPI Physical Examination: General Appearance: Comfortable, in no acute respiratory distress, co-operative . Vitals reviewed and noted as below Head; Atraumatic, normocephalic ENT: no ulcers no thrush. Tongue is midline. Oropharynx: no rash or ulcers. EYES: Pupils are equal, round and reactive to light accommodation. Eye muscles and extraocular movement intact. Sclera is anicteric. Neck; supple no lymphadenopathy, no thyromegaly or bruit Lungs: Normal respiratory rate/effort. Breath sounds bilateral equal and clear Heart: Normal rate. s1s2 normal. No rub or gallop. Extremities: no edema. No varicose veins Neurological: Patient is alert, awake and oriented to person, place and time. No focal deficit. Strength bilateral appropriate and equal Skin: Warm and dry. Normal turgor. No rash. Palpitation: Normal elasticity for age Abdomen: Abdomen is soft. Bowel sounds +. There is no abdominal tenderness, no guarding/rigidity no organomegaly, no further discomfort over LLQ allograft Psych: normal insight and normal affect/mood MSK: no joint tenderness or swelling. Digits and nails normal, no deformity : kidney or bladder not palpable Labs/imaging reviewed. Past medical history, past surgical history, family history, social history, allergy reviewed and noted as below Family hx: no hx of CKD. Rest non-contributory UA 3+ blood renal sono mild left side hydronephrosis Objective - Vital Signs/Intake and Output Vital Signs (last 24 hours): Temp Pulse Resp BP Pulse Ox 98.0 F 99 H 20 121/71 97 09/05/18 07:05 09/05/18 09:36 09/05/18 07:05 09/05/18 09:36 09/05/18 07:05 Intake and Output: 09/05/18 09/05/18 06:59 18:59 Intake Total 500 Balance 500 - Medications Medications: Current Medications Acetazolamide (Diamox 250 Mg Tab) 250 mg PO BID [facility] Last Admin: 09/05/18 09:42 Dose: 250 mg Aspirin (Ecotrin) 81 mg PO DAILY [facility] Last Admin: 09/05/18 09:41 Dose: 81 mg Clopidogrel Bisulfate (Plavix) 75 mg PO DAILY [facility] Last Admin: 09/05/18 09:40 Dose: 75 mg Enoxaparin Sodium (Lovenox) 40 mg SC DAILY [facility] Last Admin: 08/30/18 10:39 Dose: Not Given Famotidine (Pepcid) 20 mg PO DAILY [facility] Last Admin: 09/05/18 09:41 Dose: 20 mg Isosorbide Mononitrate (Imdur Er) 30 mg PO DAILY [facility] Last Admin: 09/05/18 09:40 Dose: 30 mg Metoprolol Succinate (Toprol Xl) 100 mg PO DAILY [facility] Last Admin: 09/05/18 09:41 Dose: 100 mg Montelukast Sodium (Singulair) 10 mg PO DAILY [facility] Last Admin: 09/05/18 09:41 Dose: 10 mg Mycophenolate Mofetil (Cellcept) 500 mg PO BID [facility] Last Admin: 09/05/18 09:42 Dose: 500 mg Prednisone (Prednisone Tab) 5 mg PO DAILY [facility] Last Admin: 09/05/18 09:40 Dose: 5 mg Rosuvastatin Calcium (Crestor) 20 mg PO HS [facility] Last Admin: 09/04/18 21:19 Dose: 20 mg Sodium Bicarbonate (Sodium Bicarbonate Tab) 1,300 mg PO TID [facility] Last Admin: 09/05/18 13:10 Dose: 1,300 mg Tacrolimus (Prograf Cap) 1 mg PO QPM [facility] Last Admin: 09/04/18 17:35 Dose: 1 mg Tacrolimus (Prograf Cap) 2 mg PO DAILY [facility] Last Admin: 09/05/18 09:41 Dose: 2 mg Tiotropium [place] (Spiriva) 18 mcg INH RQ24 [facility] Last Admin: 09/05/18 07:35 Dose: Not Given - Labs Labs: 09/04/18 08:07 09/04/18 08:07 PT 11.0 SECONDS (9.7-12.2) 08/31/18 08:15 INR 1.0 08/31/18 08:15 APTT 31 SECONDS (21-34) 08/31/18 08:15
[2018-09-05 23:45] VITALS: O2SAT 98
--- NOTE | 2018-09-06 00:03 | PN ---
DATE: 09/05/2018 SUBJECTIVE: The patient was seen and examined at bedside. Denies any chest pain or any other shortness of breath. Denies any other complaints. PHYSICAL EXAMINATION: GENERAL: Middle-aged female, lying in bed, in no acute distress. VITAL SIGNS: Blood pressure 121/71, pulse 99, respirations 20, temperature 97.7 degrees Fahrenheit, O2 saturations 97% on room air. HEENT: Pupils equal, round and reacting to light and accommodation. Extraocular muscles intact. No icterus. No pallor. No oral thrush. No pharyngeal congestion. NECK: Supple. No JVD. LUNGS: Bilateral vesicular breath sounds. No wheezing. No rhonchi. CARDIOVASCULAR SYSTEM: S1 and S2 present and regular. ABDOMEN: Soft and nontender. Bowel sounds present. No guarding. No rigidity. No rebound tenderness noted. CENTRAL NERVOUS SYSTEM: Alert, awake, and oriented x3. No focal deficits noted. EXTREMITIES: No edema. Palpable peripheral pulses. MEDICATIONS: Include Diamox 250 mg b.i.d., aspirin 81 mg daily, Plavix 75 mg daily, Lovenox 40 mg daily, Pepcid 20 mg daily, Imdur 30 mg daily, metoprolol 100 mg daily, Singulair 10 mg daily, CellCept 500 mg p.o. b.i.d., prednisone 5 mg daily, Crestor 20 mg p.o. at bedtime, sodium bicarbonate 1300 mg p.o. t.i.d., Prograf 2 mg in the morning and 1 mg at night, Spiriva one inhalation daily. LABORATORY DATA: There are no new labs from this morning, but from yesterday: Creatinine is 0.9, bicarb is 17, BUN is 22, sodium 145, potassium 3.8. H and H remained at 11.8 and 34.2, platelets 206. ASSESSMENT AND PLAN: Middle-aged female with congenital kidney disease, status post multiple renal transplants, on immunosuppression, history of intracranial hemorrhage, pseudotumor cerebri, hypertension, hyperlipidemia, coronary artery disease, status post stent placement with abnormal stress test from last year, now status post cardiac catheterization consistent with moderate left anterior descending artery disease. For possible percutaneous coronary intervention, I discussed with Cardiology. If the patient agrees for percutaneous coronary intervention in this facility, Cardiology will be planning for the procedure in the morning. If the patient decides to proceed with her own fraud examiner, we will plan discharging the patient home and would recommend the patient to follow up with her own fraud examiner at . Await the patient's decision. Continue with current medications. Vania Sampson MD
[2018-09-06] MEDS: Tiotropium 18 mcg Cap For Inhalation INH SCH (07:47)
[2018-09-06 08:01] VITALS: BP 107/71; PULSE 78; TEMP 97.5
[2018-09-06] MEDS: Metoprolol Succinate 50 mg XL Tab PO SCH (09:45)
--- NOTE | 2018-09-06 10:42 | CP.PCM.PN ---
Subjective - Date & Time of Evaluation Date of Evaluation: 09/06/18 Time of Evaluation: 10:42 - Subjective Subjective: Discharge summary dictated # [id number] Objective - Vital Signs/Intake and Output Vital Signs (last 24 hours): Temp Pulse Resp BP Pulse Ox 97.5 F L 78 20 107/71 98 09/06/18 07:58 09/06/18 07:58 09/06/18 07:58 09/06/18 07:58 09/06/18 07:58 Intake and Output: 09/06/18 09/06/18 06:59 18:59 Intake Total 500 Balance 500 - Medications Medications: Current Medications Acetazolamide (Diamox 250 Mg Tab) 250 mg PO BID [facility] Last Admin: 09/06/18 09:57 Dose: 250 mg Aspirin (Ecotrin) 81 mg PO DAILY [facility] Last Admin: 09/06/18 09:46 Dose: 81 mg Clopidogrel Bisulfate (Plavix) 75 mg PO DAILY [facility] Last Admin: 09/06/18 09:46 Dose: 75 mg Enoxaparin Sodium (Lovenox) 40 mg SC DAILY [facility] Last Admin: 08/30/18 10:39 Dose: Not Given Famotidine (Pepcid) 20 mg PO DAILY [facility] Last Admin: 09/06/18 09:47 Dose: 20 mg Isosorbide Mononitrate (Imdur Er) 30 mg PO DAILY [facility] Last Admin: 09/06/18 09:55 Dose: 30 mg Metoprolol Succinate (Toprol Xl) 100 mg PO DAILY [facility] Last Admin: 09/06/18 09:45 Dose: 100 mg Montelukast Sodium (Singulair) 10 mg PO DAILY [facility] Last Admin: 09/06/18 09:47 Dose: 10 mg Mycophenolate Mofetil (Cellcept) 500 mg PO BID [facility] Last Admin: 09/06/18 09:46 Dose: 500 mg Prednisone (Prednisone Tab) 5 mg PO DAILY [facility] Last Admin: 09/06/18 09:47 Dose: 5 mg Rosuvastatin Calcium (Crestor) 20 mg PO HS [facility] Last Admin: 09/05/18 21:11 Dose: 20 mg Sodium Bicarbonate (Sodium Bicarbonate Tab) 1,300 mg PO TID [facility] Last Admin: 09/06/18 09:55 Dose: 1,300 mg Tacrolimus (Prograf Cap) 1 mg PO QPM [facility] Last Admin: 09/05/18 17:10 Dose: 1 mg Tacrolimus (Prograf Cap) 2 mg PO DAILY [facility] Last Admin: 09/06/18 09:48 Dose: 2 mg Tiotropium [place] (Spiriva) 18 mcg INH RQ24 [facility] Last Admin: 09/06/18 07:47 Dose: Not Given - Labs Labs: 09/04/18 08:07 09/04/18 08:07 PT 11.0 SECONDS (9.7-12.2) 08/31/18 08:15 INR 1.0 08/31/18 08:15 APTT 31 SECONDS (21-34) 08/31/18 08:15
--- NOTE | 2018-09-06 11:06 | CP.PCM.PN ---
Subjective - Date & Time of Evaluation Date of Evaluation: 09/06/18 Time of Evaluation: 11:04 - Subjective Subjective: Nephrology Consultation Note: Assessment: Stable chest pain, hx of CAD s/p stent congenital kidney disease s/p 4 kidney transplants, last DDRT in 2007 (f/up at [facility]) hypertension (years) ICH, pseudotumor cerebri (on diamox) recurrent UTIs, s/p ureteral stents and bladder reconstruction surgery hematuria, anemia, metabolic acidosis, hypomagnesemia Renal tubular acidosis ? due to diamox Plan kidney transplant function stable, continue with her home regimen with prednisone 5 mg/day, cellcept 500 mg bid, prograf 2 mg in AM and 1 mg in PM. sent prograf level: in target range BP control with meds as ordered. Maintain hemodynamics stable. Avoid hypotension. Monitor Input/Output, daily weights and renal function with basic metabolic panel hematuria: work up: repeat UA, sonogram and BK virus PCR, urine c/s. if pt planned for d/c home soon, then recommend outpt early f/up with her transplant center within next few days continue with sodium bicarb Dose meds/antibiotics for GFR >60.Avoid nephrotoxins/NSAIDs Glycemic control Further work up/management as per primary team pt stable for d/c from renal perspective Thanks for allowing me to participate in care of your patient. Will follow p atient with you. Please call if any Qs. had d/w team Dr Darshan Valentino Office: [phone] Reason for consult: kidney transplant management HPI: Pt is a 48 F with hx of congenital kidney disease s/p 4 kidney transplants, last DDRT in 2007 (f/up at [facility]) hypertension (years) CAD s/p stent, ICH, pseudotumor cerebri (on diamox), recurrent UTIs, s/p ureteral stents and bladder reconstruction surgery presented with complaints of chest pain and being managed for it. renal consult for transplant management Denies OTC/herbal meds or NSAIDs No recent iodinated contrast exposure. No obvious episodes of low BP. she reports urine reddish in color for last 2 days. no associated chills or fever or dysuria. ROS: Cardiovascular: No chest pain at present Pulmonary: No shortness of breath Gastrointestinal: denies abdominal pain No nausea. No vomiting. Genitourinary: No pain while urinating. initially c/o blood in urine but resolved now. All other negative except as mentioned in HPI she decided to f/up with her tube roller in [facility] for coronary intervention Physical Examination: General Appearance: Comfortable, in no acute respiratory distress, co-operative . Vitals reviewed and noted as below Head; Atraumatic, normocephalic ENT: no ulcers no thrush. Tongue is midline. Oropharynx: no rash or ulcers. EYES: Pupils are equal, round and reactive to light accommodation. Eye muscles and extraocular movement intact. Sclera is anicteric. Neck; supple no lymphadenopathy, no thyromegaly or bruit Lungs: Normal respiratory rate/effort. Breath sounds bilateral equal and clear Heart: Normal rate. s1s2 normal. No rub or gallop. Extremities: no edema. No varicose veins Neurological: Patient is alert, awake and oriented to person, place and time. No focal deficit. Strength bilateral appropriate and equal Skin: Warm and dry. Normal turgor. No rash. Palpitation: Normal elasticity for age Abdomen: Abdomen is soft. Bowel sounds +. There is no abdominal tenderness, no guarding/rigidity no organomegaly, no further discomfort over LLQ allograft Psych: normal insight and normal affect/mood MSK: no joint tenderness or swelling. Digits and nails normal, no deformity : kidney or bladder not palpable Labs/imaging reviewed. Past medical history, past surgical history, family history, social history, allergy reviewed and noted as below Family hx: no hx of CKD. Rest non-contributory UA 3+ blood renal sono mild left side hydronephrosis Objective - Vital Signs/Intake and Output Vital Signs (last 24 hours): Temp Pulse Resp BP Pulse Ox 97.5 F L 78 20 107/71 98 09/06/18 07:58 09/06/18 07:58 09/06/18 07:58 09/06/18 07:58 09/06/18 07:58 Intake and Output: 09/06/18 09/06/18 06:59 18:59 Intake Total 500 Balance 500 - Medications Medications: Current Medications Acetazolamide (Diamox 250 Mg Tab) 250 mg PO BID [facility] Last Admin: 09/06/18 09:57 Dose: 250 mg Aspirin (Ecotrin) 81 mg PO DAILY [facility] Last Admin: 09/06/18 09:46 Dose: 81 mg Clopidogrel Bisulfate (Plavix) 75 mg PO DAILY [facility] Last Admin: 09/06/18 09:46 Dose: 75 mg Enoxaparin Sodium (Lovenox) 40 mg SC DAILY [facility] Last Admin: 08/30/18 10:39 Dose: Not Given Famotidine (Pepcid) 20 mg PO DAILY [facility] Last Admin: 09/06/18 09:47 Dose: 20 mg Isosorbide Mononitrate (Imdur Er) 30 mg PO DAILY [facility] Last Admin: 09/06/18 09:55 Dose: 30 mg Metoprolol Succinate (Toprol Xl) 100 mg PO DAILY [facility] Last Admin: 09/06/18 09:45 Dose: 100 mg Montelukast Sodium (Singulair) 10 mg PO DAILY [facility] Last Admin: 09/06/18 09:47 Dose: 10 mg Mycophenolate Mofetil (Cellcept) 500 mg PO BID [facility] Last Admin: 09/06/18 09:46 Dose: 500 mg Prednisone (Prednisone Tab) 5 mg PO DAILY [facility] Last Admin: 09/06/18 09:47 Dose: 5 mg Rosuvastatin Calcium (Crestor) 20 mg PO HS [facility] Last Admin: 09/05/18 21:11 Dose: 20 mg Sodium Bicarbonate (Sodium Bicarbonate Tab) 1,300 mg PO TID [facility] Last Admin: 09/06/18 09:55 Dose: 1,300 mg Tacrolimus (Prograf Cap) 1 mg PO QPM [facility] Last Admin: 09/05/18 17:10 Dose: 1 mg Tacrolimus (Prograf Cap) 2 mg PO DAILY [facility] Last Admin: 09/06/18 09:48 Dose: 2 mg Tiotropium [place] (Spiriva) 18 mcg INH RQ24 [facility] Last Admin: 09/06/18 07:47 Dose: Not Given - Labs Labs: 09/04/18 08:07 09/04/18 08:07 PT 11.0 SECONDS (9.7-12.2) 08/31/18 08:15 INR 1.0 08/31/18 08:15 APTT 31 SECONDS (21-34) 08/31/18 08:15
--- NOTE | 2018-09-07 20:30 | DS ---
DISCHARGE DIAGNOSES: Coronary artery disease with moderate disease of the left anterior descending, status post cardiac catheterization, status post stent placement many years ago; congenital kidney disease, status post multiple renal transplants; microscopic hematuria; hypertension; hyperlipidemia; pseudotumor cerebri; intracranial hemorrhage history; partially blind. HISTORY OF PRESENT ILLNESS: Ms. Staley is a 48-year-old female with a past medical history of hypertension, asthma, hyperlipidemia, history of CVA without any neurologic deficit from intracranial hemorrhage, coronary artery disease, status post cardiac catheterization and stent placement in 2011, had abnormal stress test last year, came into the hospital with a sudden onset of chest pain, associated with mild shortness of breath and the patient is being admitted for further evaluation. Today, the patient is feeling better. Denies any headache or dizziness. Denies any chest pain, shortness of breath or wheezing. Denies any nausea, vomiting, abdominal pain, diarrhea or constipation. Denies any urinary complaints. Denies any leg pain or leg cramps. Denies any other neurologic symptoms. All other systems reviewed and were found to be negative. PHYSICAL EXAMINATION: GENERAL: A middle-aged female lying in bed, in no acute distress. VITAL SIGNS: Blood pressure 107/71, pulse 78, respirations 20, temperature 97.5 degrees Fahrenheit, O2 sats 98% on room air. HEENT: Pupils equal, round and reacting to light and accommodation. Extraocular muscles intact. No icterus. No pallor. No oral thrush. No pharyngeal congestion. NECK: Supple. No JVD. LUNGS: Bilateral vesicular breath sounds. No wheezing. No rhonchi. CARDIOVASCULAR SYSTEM: S1 and S2 present and regular. ABDOMEN: Soft, nontender. Bowel sounds present. No guarding. No rigidity. No rebound tenderness noted. CENTRAL NERVOUS SYSTEM: Alert, awake, oriented x3. No focal deficits noted. EXTREMITIES: No edema. Palpable peripheral pulses. LABORATORY DATA: Labs done from 09/04/2018: WBC 10.7, hemoglobin 11.8, hematocrit 34.2, platelets 206. Sodium 145, potassium 3.8, chloride 112, bicarb 17, BUN 22, creatinine 0.9, glucose 90. LFTs within normal limits. Tacrolimus level 5.6. Urine culture, negative growth. Renal ultrasound shows mild hydronephrosis of the left lower quadrant transplant kidney with stent present extending from the transplant kidney, renal pelvis into the urinary bladder. HOSPITAL COURSE: The patient was admitted to telemetry for chest pain. The patient underwent FLAVIO. Three sets of cardiac enzymes were negative. No new EKG changes. In view of her history, the patient was recommended to undergo cardiac catheterization by Cardiology. The patient was scheduled for procedure, but her quantitative beta-hCG came back slightly higher. According to aquatic life laborer procedures, they required [employer] evaluation and clearance to proceed with cardiac catheterization. The patient was evaluated by [employer], advised to wait for 48 hours to repeat beta-hCG. It remained the same, but Cardiology proceeded with cardiac catheterization which was consistent with moderate LAD disease, for which the patient was recommended to undergo stent placement. The patient was unable to decide, and this morning when the patient was scheduled to go for cardiac catheterization in [place], she decided to go with her own ink technician in the city, wants to go back [place]. Dr. Damon discussed with the patient at length and explained to the patient regarding the procedure and the patient is willing to go back to her primary ink technician for further cardiac care as the patient is not willing to undergo procedure here. The patient is otherwise hemodynamically stable and the patient is cleared by Cardiology for followup with the patient's ink technician as soon as possible for further cardiac care. During her hospital course, the patient was evaluated by Renal for her transplant status and for microscopic hematuria. Her urine cultures came back negative. Transplant kidney ultrasound showed mild hydronephrosis. The patient was recommended to follow up with her transplant team at [facility]. The patient's renal function remained the same and stable after the procedure. The patient is advised to continue with her home medications and advised to return to the emergency room for any worsening of symptoms or for any new symptoms. CONDITION UPON DISCHARGE: The patient is alert, awake, oriented x3 and hemodynamically stable at the time of discharge. DISCHARGE INSTRUCTIONS: Follow up with PMD. Follow up with Cardiology RADHA. Follow up with Renal. DISCHARGE DIET: Low sodium, low cholesterol 1800 calorie ADA and renal diet. ACTIVITY: As tolerated. MEDICATIONS: Include acetazolamide 250 mg p.o. b.i.d., aspirin 81 mg daily, Lipitor 40 mg daily, Pepcid 20 mg daily, Imdur 30 mg p.o. daily, metoprolol 100 mg p.o. daily, Cellcept 500 mg p.o. b.i.d., prednisone 5 mg daily, Singulair 10 mg daily, sodium bicarbonate 1300 mg p.o. t.i.d., tacrolimus 2 mg in the morning and 1 mg in the , Spiriva one inhalation daily, Plavix 75 mg p.o. daily. Advised the patient to return to the emergency room if any worsening of her symptoms or any new symptoms occur. Vania Sampson MD
== END 2018-09-06 12:00 | disposition home or self-care (01) | DRG 124 ==
LOC: C.ER 16:56 → C.9E 18:44 → C.5S 19:05 → OBSVTOIN 08-31 16:22 → C.5S 09-01 20:59
PROVIDERS: ADMIT Internal Medicine; ATTEND Internal Medicine
PROC: 4A023N7 Measurement of Cardiac Sampling and Pressure, Left Heart, Percutaneous Approach (ICD-10-PCS; principal; 2018-09-02)
PROC: B2151ZZ Fluoroscopy of Left Heart using Low Osmolar Contrast (ICD-10-PCS; 2018-09-02)
PROC: B2111ZZ Fluoroscopy of Multiple Coronary Arteries using Low Osmolar Contrast (ICD-10-PCS; 2018-09-02)
DX: I25.110 Atherosclerotic heart disease of native coronary artery with unstable angina pectoris (principal); I13.2 Hypertensive heart and chronic kidney disease with heart failure and with stage 5 chronic kidney disease, or end stage renal disease; E87.2 Acidosis; N18.6 End stage renal disease; I50.9 Heart failure, unspecified; E11.22 Type 2 diabetes mellitus with diabetic chronic kidney disease; N13.30 Unspecified hydronephrosis; D64.9 Anemia, unspecified; E83.42 Hypomagnesemia; G93.2 Benign intracranial hypertension; Z94.0 Kidney transplant status; R31.29 Other microscopic hematuria; J45.909 Unspecified asthma, uncomplicated; E78.5 Hyperlipidemia, unspecified; K59.00 Constipation, unspecified; H54.7 Unspecified visual loss; H40.9 Unspecified glaucoma; E78.00 Pure hypercholesterolemia, unspecified; N28.89 Other specified disorders of kidney and ureter; Z53.29 Procedure and treatment not carried out because of patient's decision for other reasons; Z95.5 Presence of coronary angioplasty implant and graft; Z86.73 Personal history of transient ischemic attack (TIA), and cerebral infarction without residual deficits; Z87.440 Personal history of urinary (tract) infections; Z82.5 Family history of asthma and other chronic lower respiratory diseases